=== PATIENT | male | born 1970 | race Caucasian/White ===

== ENCOUNTER 2016-10-13 18:58 | Emergency (ER) | payer OTHER ==
[~2016-10-13] VITALS: Ht 185.4 cm; Wt 118.8 kg
[~2016-10-13 18:58] MED LIST: ALBUAER2 INH; AMB5 PO; CLB200 PO; CLC100 PO; DLCS PR; EPP3/2 IM; LVNIS40 SQ; MLXESC PO; MULT-589 PO; OXYSR10 PO; PRT40 PO; RXC5 PO; SNK PO
[2016-10-13 19:05] VITALS: Ht 185.4 cm; Wt 118.8 kg
[2016-10-13 20:22] VITALS: TEMP 37
[2016-10-13] MEDS ORDERED: SODIUM CHLORIDE 0.9% 1000ML 1,000 ML IV STA (20:27)
[2016-10-13] MEDS ORDERED: METOCLOPRAMIDE HCL INJ 5 MG/ML 2 ML VIAL IV STA (20:27)
[2016-10-13] MEDS ORDERED: HYDROmorphone INJ 1 MG/ML SYR IV STA ×2 (20:27→23:24)
[2016-10-13] MEDS ORDERED: KETOROLAC TROMETHAMINE 30 MG/ML VIAL IV STA (20:27)
[2016-10-13 20:43] LABS: BASO % 0.2 %; BASO ABS # 0.04 K/uL (0-0.2); COMPLETE YES; EOS % 1.8 %; HEMATOCRIT 45.6 % (42-52); IG% 0.3 %; LYMPH ABS # 4.03 K/uL (1.2-3.4); MEAN CELL VOLUME 79.7 fL (80-100); MEAN CORPUSCULAR HEMOGLOBIN 27.3 pg (25-34); MEAN CORPUSCULAR HGB CONC 34.2 g/dl (32-36); MEAN PLATELET VOLUME 9.7 fL (7.4-10.4); MONO % 7.9 %; NEUT % 64.8 %; PLATELET COUNT 271 K/uL (130-400); RED BLOOD COUNT 5.72 M/uL (4.7-6.1); WHITE BLOOD COUNT 16.13 K/uL (4.8-10.8)
[2016-10-13] MEDS ORDERED: OXYC-609 PO (21:01)
[2016-10-13] MEDS ORDERED: FAMO20TA11 PO (21:01)
[2016-10-13] MEDS ORDERED: IBUP-1050 PO (21:03)
[2016-10-13] MEDS ORDERED: CYCL5TAB PO (21:03)
[2016-10-13] MEDS ORDERED: DICY10CA12 PO (21:03)
[2016-10-13 21:09] LABS: ALKALINE PHOSPHATASE 86 U/L (45-117); ALT/SGPT 44 U/L (12-78); BLOOD UREA NITROGEN 17 mg/dl (7-18); BUN/CREATININE RATIO 15.8 (10-20); CALCIUM 8.8 mg/dl (8.5-10.1); CARBON DIOXIDE 27 mmol/L (21-32); CHLORIDE 105 mmol/L (98-107); GLUCOSE 97 mg/dl (70-99)
[2016-10-13 21:19] LABS: POTASSIUM 4.3 mmol/L (3.5-5.1); SODIUM 142 mmol/L (136-145)
[2016-10-13 21:24] LABS: AST/SGOT 22 U/L (15-37)
--- NOTE | 2016-10-13 21:35 | EMERGENCY ROOM VISIT NOTE ---
History Report prepared by Shi: Venita Iverson Under the Supervision of: Dr. Tai Umana M.D. First contact with patient: 20:18 Chief Complaint: ABDOMINAL PAIN Stated Complaint: ABDOMINAL PAIN Nursing Triage Summary: pt c/o bad abd pain since 0200 this morning with nausea. History of Present Illness The patient is a 45 year old male who presents to the Emergency Room with complaints of constant lower abdominal pain beginning this morning. The patient complains of lower back pain and notes that his symptoms are worsened with pressure and movement. He denies any diarrhea, blood in the stool, and blood in the urine. He notes that he was concerned about appendicitis and [facility] The patient has never had any abdominal surgeries and rates his pain as a 6/10 in severity. He notes that he takes Vicodin in the morning at home and it did not relieve his pain. Source of History: patient Onset: this morning Position: abdomen Symptom Intensity: 6/10 Timing: constant Modifying Factors (Worsening): movement, other (pressure) Associated Symptoms: + back pain, No diarrhea Note: Pt denies blood in the stool. Review of Systems See HPI for pertinent positives & negatives. A total of 10 systems reviewed and were otherwise negative. Past Medical & Surgical Medical Problems: (1) Anxiety (2) Asthma (3) Depression (4) Djd Bilateral Knees (5) Knee pain Family History FH: heart disease Hypertension Social History Smoking Status: Current Every Day Smoker Alcohol Use: none, other Marital Status: single Occupation Status: employed Current/Historical Medications Scheduled Amoxicillin & Pot Clavulanate (Augmentin 875-125 mg), 1 TAB PO BID Docusate Sodium (Colace), 1 CAP PO BID Famotidine (Pepcid), 20 MG PO QAM Ibuprofen (Advil), 200-600 MG PO Q4H Oxycodone HCl (Oxycodone HCl), 5 MG PO BID Sennosides (Senokot), 8.6 MG PO HS Scheduled PRN Albuterol (Ventolin), 2 PUFFS INH QID PRN for Asthma Symptoms Cyclobenzaprine Hcl (Flexeril), 5 MG PO TID PRN for PRN Dicyclomine Hcl (Dicyclomine Hcl), 1 MG PO DAILY PRN for PRN Epinephrine (Epipen), 0.3 MG IM UD PRN for ALLERGIC REACTION Oxycodone/Acetaminophen 5MG/325MG (Percocet 5MG/325MG), 1-2 TAB PO Q4H PRN for Pain Allergies Coded Allergies: Bee Venom (Verified Allergy, Severe, ANAPHYLAXIS, 10/13/16) Reported by PT Physical Exam Vital Signs Date Time Temp Pulse Resp B/P Pulse Ox O2 Delivery O2 Flow Rate FiO2 10/14/16 00:05 80 18 134/78 98 10/13/16 22:11 89 18 118/70 94 Room Air 10/13/16 21:10 95 10/13/16 20:22 37.0 100 20 152/103 95 Room Air 10/13/16 19:05 37.0 114 18 142/88 96 Room Air Physical Exam GENERAL: Patient is a healthy-appearing well-nourished HEAD: Normocephalic atraumatic EYES: Ocular movements intact pupils equal and react to light OROPHARYNX mucous membranes are moist no exudates present no erythema or edema present NECK: Supple no nuchal rigidity CHEST: Good equal expansion LUNGS: Clear and equal to auscultation CARDIAC: Normal S1 and S2 ABDOMEN: Soft, tender in LLQ, no guarding BACK: No CVA tenderness EXTREMITIES: No pain upon palpation normal muscle strength in all groups no clubbing cyanosis or edema NEURO: Patient is following commands is answering questions appropriately. Alert and oriented x3 Cranial Nerves 2-12 grossly intact Medical Decision & Procedures ER Provider Diagnostic Interpretation: CT results as stated below per my review and radiologist interpretation: CT ABD/PELVIS IV AND ORAL CONT FINDINGS: Lower chest: There are bibasal atelectatic changes. Liver: There is moderately severe hepatic steatosis. No focal masses are visualized. Gallbladder: Unremarkable. Spleen: Normal in size and attenuation. Pancreas: Unremarkable. Adrenal glands: Unremarkable. Kidneys: There is symmetric renal cortical enhancement. The kidneys are normal in size without hydronephrosis. Bowel: There are no transition zones indicate bowel obstruction. The appendix appears normal. There is sausagelike thickening of the sigmoid colon. There is infiltration of the perisigmoid fat. The findings are indicative of acute diverticulitis. There is no drainable abscess. Peritoneum: There is no intraperitoneal free air or abdominal ascites. Vasculature: The abdominal aorta is normal in course and caliber. Adenopathy: None. Pelvic viscera: The bladder, and pelvic viscera are unremarkable. Skeletal structures: No destructive osseous lesions are seen. IMPRESSION: 1. Acute sigmoid diverticulitis. 2. No evidence of bowel obstruction. No evidence of free air 3. Normal appendix 4. Hepatic steatosis. Electronically signed by: Hugh Avila M.D. 10/13/2016 11:12 PM Dictated Date/Time: 10/13/2016 11:08 PM Laboratory Results 10/13/16 20:30 Red Blood Count 5.72, Mean Corpuscular Volume 79.7, Mean Corpuscular Hemoglobin 27.3, Mean Corpuscular Hemoglobin Concent 34.2, Mean Platelet Volume 9.7, Neutrophils (%) (Auto) 64.8, Lymphocytes (%) (Auto) 25.0, Monocytes (%) (Auto) 7.9, Eosinophils (%) (Auto) 1.8, Basophils (%) (Auto) 0.2, Neutrophils # (Auto) 10.44, Lymphocytes # (Auto) 4.03, Monocytes # (Auto) 1.28, Eosinophils # (Auto) 0.29, Basophils # (Auto) 0.04 10/13/16 20:30 Test 10/13/16 20:30 White Blood Count 16.13 K/uL (4.8-10.8) Red Blood Count 5.72 M/uL (4.7-6.1) Hemoglobin 15.6 g/dL (14.0-18.0) Hematocrit 45.6 % (42-52) Mean Corpuscular Volume 79.7 fL (80-100) Mean Corpuscular Hemoglobin 27.3 pg (25-34) Mean Corpuscular Hemoglobin Concent 34.2 g/dl (32-36) Platelet Count 271 K/uL (130-400) Mean Platelet Volume 9.7 fL (7.4-10.4) Neutrophils (%) (Auto) 64.8 % Lymphocytes (%) (Auto) 25.0 % Monocytes (%) (Auto) 7.9 % Eosinophils (%) (Auto) 1.8 % Basophils (%) (Auto) 0.2 % Neutrophils # (Auto) 10.44 K/uL (1.4-6.5) Lymphocytes # (Auto) 4.03 K/uL (1.2-3.4) Monocytes # (Auto) 1.28 K/uL (0.11-0.59) Eosinophils # (Auto) 0.29 K/uL (0-0.5) Basophils # (Auto) 0.04 K/uL (0-0.2) RDW Standard Deviation 44.5 fL (36.4-46.3) RDW Coefficient of Variation 15.3 % (11.5-14.5) Immature Granulocyte % (Auto) 0.3 % Immature Granulocyte # (Auto) 0.05 K/uL (0.00-0.02) Anion Gap 10.0 mmol/L (3-11) Est Creatinine Clear Calc Drug Dose 114.5 ml/min Estimated GFR () 93.5 Estimated GFR (Non- 80.6 BUN/Creatinine Ratio 15.8 (10-20) Calcium Level 8.8 mg/dl (8.5-10.1) Total Bilirubin 0.6 mg/dl (0.2-1) Direct Bilirubin < 0.1 mg/dl (0-0.2) Aspartate Amino Transf (AST/SGOT) 22 U/L (15-37) Alanine Aminotransferase (ALT/SGPT) 44 U/L (12-78) Alkaline Phosphatase 86 U/L (45-117) Total Protein 7.8 gm/dl (6.4-8.2) Albumin 3.9 gm/dl (3.4-5.0) Lipase 76 U/L (73-393) Labs reviewed by ED physician. Medications Administered Medications (Trade) Dose Ordered Sig/Yang Route Start Time Stop Time Status Last Admin Dose Admin Sodium Chloride (Nss 1000ml) 1,000 ml @ 999 mls/hr Q1H1M STAT IV 10/13/16 20:27 10/13/16 21:27 DC 10/13/16 20:39 999 MLS/HR Metoclopramide HCl (Reglan Inj) 10 mg NOW STAT IV 10/13/16 20:27 10/13/16 20:29 DC 10/13/16 20:39 10 MG Hydromorphone HCl (Dilaudid Inj) 1 mg NOW STAT IV 10/13/16 20:27 10/13/16 20:29 DC 10/13/16 20:40 1 MG Ketorolac Tromethamine (Toradol Inj) 30 mg NOW STAT IV 10/13/16 20:27 10/13/16 20:29 DC 10/13/16 20:39 30 MG Amoxicillin/ Clavulanate Potassium (Augmentin Tab) 875 mg ONE ONCE PO 10/13/16 23:30 10/13/16 23:31 DC 10/13/16 23:52 875 MG Amoxicillin/ Clavulanate Potassium (Augmentin Tab) 875 mg BID ONCE PO 10/14/16 09:00 10/14/16 09:00 DC 10/13/16 23:59 875 MG Hydromorphone HCl (Dilaudid Inj) 1 mg NOW STAT IV 10/13/16 23:24 10/13/16 23:25 DC 10/13/16 23:53 1 MG Ondansetron HCl (Zofran Inj) 4 mg NOW STAT IV 10/13/16 23:24 10/13/16 23:25 DC 10/13/16 23:52 4 MG Oxycodone/ Acetaminophen (Percocet 5/ 325MG Home Pack) 1 homepack UD ONCE PO 10/13/16 23:30 10/13/16 23:31 DC 10/13/16 23:53 1 HOMEPACK ED Course 2018: Past medical records reviewed. The patient was evaluated in room C8. A complete history and physical examination was performed. 2026: Toradol Inj 30mg IV, Dilaudid Inj 1mg IV, Reglan Inj 10mg IV, Sodium Chloride 1000 ml @ 999 mls/hr IV. 2324: Zofran Inj 4mg IV, Dilaudid Inj 1mg IV. 2330: Oxycodone/Acetaminophen 1 homepack PO, Augmentin Tab 875mg PO. 2335: Upon reexamination the patient is hemodynamically stable. I discussed results and treatment plan with the patient. He verbalizes agreement and understanding. The patient is ready for discharge. 0900: Augmentin Tab 875mg PO. Medical Decision Differential diagnosis: Etiologies such as appendicitis, diverticulitis, PUD, biliary pathology, UTI, pancreatitis, obstruction, mesenteric ischemia, aortic pathology, infections, inflammatory bowel disease, renal colic, as well as others were entertained. This is a 45-year-old male who presents emergency department complaining of left lower quadrant abdominal pain. Patient does have an elevation in his white blood count 16. The patient was sent for CAT scan of the abdomen and pelvis. Serial abdominal examinations were performed on the patient in the emergency department and no tended patient exhibit a surgical abdomen. The patient does have diverticulitis on CAT scan has no evidence of an abscess. For this reason he started on Augmentin. I recommended a clear liquid diet for the next 48 hours and return pain was out of control or the patient began vomiting. Patient was in agreement with treatment plan. He is going to follow- up with gastroenterology. Impression Primary Impression: Abdominal pain Additional Impression: Diverticulitis Scribe Attestation The scribe's documentation has been prepared under my direction and personally reviewed by me in its entirety. I confirm that the note above accurately reflects all work, treatment, procedures, and medical decision making performed by me. Departure Information Dispostion Home / Self-Care Prescriptions Docusate Sodium (COLACE) 100 Mg Cap 1 CAP PO BID for 10 Days, #20 CAP Prov: Tai Umana MD 10/13/16 Sennosides (SENOKOT) 8.6 Mg Tab 8.6 MG PO HS, #10 TAB Prov: Tai Umana MD 10/13/16 Oxycodone/Acetaminophen 5MG/325MG (PERCOCET 5MG/325MG) Tab 1-2 TAB PO Q4H Y for Pain, #14 TAB Prov: Tai Umana MD 10/13/16 Amoxicillin & Pot Clavulanate (Augmentin 875-125 mg) 1 Tab Tab 1 TAB PO BID, #14 TAB Prov: Tai Umana MD 10/13/16 Referrals Joe Metzger M.D. (PCP) Forms Call Back Authorization, HOME CARE DOCUMENTATION FORM, IMPORTANT VISIT INFORMATION Patient Instructions Diverticulosis Diverticulitis, ED Diet Clear Liquid, My [facility] Additional Instructions CLear liquid diet next 48 hours Follow up with DR Miramontes's office Return if you develop severe abd pain and or fevers You received narcotic or benzodiazepene medication while in the emergency room today. Do not drive, operate heavy machinery, or drink alcohol under the influence of this medication. Take 600 mg Ibuprofen every 6 hours Take Percocet for breakthrough pain You have been examined and treated today on an emergency basis only. This is not a substitute for, or an effort to provide, complete comprehensive medical care. It is impossible to recognize and treat all injuries or illnesses in a single emergency department visit. It is therefore important that you follow up closely with Dr Metzger. Call as soon as possible for an appointment. Thank you for your time and consideration. I look forward to speaking with you again soon. Please don't hesitate to call us if you have any questions. Problem Qualifiers Primary Impression: Abdominal pain Abdominal location: left lower quadrant Qualified Codes: R10.32 - Left lower quadrant pain Additional Impression: Diverticulitis Diverticulitis site: large intestine Diverticulitis bleeding: without bleeding Diverticulitis complication: without perforation or abscess Qualified Codes: K57.32 - Diverticulitis of large intestine without perforation or abscess without bleeding
[2016-10-13] MEDS ORDERED: OPTIRAY 320 IV PRN (23:00)
--- NOTE | 2016-10-13 23:13 | DIAGNOSTIC IMAGING REPORT ---
CT ABD/PELVIS IV AND ORAL CONT CLINICAL HISTORY: Left lower quadrant abdominal pain COMPARISON STUDY: 10/03/2014 TECHNIQUE: Following the IV administration of 93 mL of Optiray-320, CT scan of the abdomen and pelvis was performed from the lung bases to the proximal femurs. Images are reviewed in the axial, sagittal, and coronal planes. IV contrast was administered without complication. CT DOSE: 1144.91 mGy.cm FINDINGS: Lower chest: There are bibasal atelectatic changes. Liver: There is moderately severe hepatic steatosis. No focal masses are visualized. Gallbladder: Unremarkable. Spleen: Normal in size and attenuation. Pancreas: Unremarkable. Adrenal glands: Unremarkable. Kidneys: There is symmetric renal cortical enhancement. The kidneys are normal in size without hydronephrosis. Bowel: There are no transition zones indicate bowel obstruction. The appendix appears normal. There is sausagelike thickening of the sigmoid colon. There is infiltration of the perisigmoid fat. The findings are indicative of acute diverticulitis. There is no drainable abscess. Peritoneum: There is no intraperitoneal free air or abdominal ascites. Vasculature: The abdominal aorta is normal in course and caliber. Adenopathy: None. Pelvic viscera: The bladder, and pelvic viscera are unremarkable. Skeletal structures: No destructive osseous lesions are seen. IMPRESSION: 1. Acute sigmoid diverticulitis. 2. No evidence of bowel obstruction. No evidence of free air 3. Normal appendix 4. Hepatic steatosis. Electronically signed by: Hugh Avila M.D. 10/13/2016 11:12 PM Dictated Date/Time: 10/13/2016 11:08 PM
[2016-10-13] MEDS ORDERED: ONDANSETRON INJ 2 MG/ML 2 ML VIAL IV STA (23:24)
[2016-10-13] MEDS ORDERED: AMOX875T PO (23:28)
[2016-10-13] MEDS ORDERED: OXYC-57 PO (23:28)
[2016-10-13] MEDS ORDERED: PERCOCET HOME PACK PO ONE (23:30)
[2016-10-13] MEDS ORDERED: AMOXICILLIN/CLAVULANATE TAB 875 MG TAB PO ONE (23:30)
[2016-10-13] MEDS ORDERED: SENN1TAB77 PO (23:32)
[2016-10-13] MEDS ORDERED: DOCU-94 PO (23:32)
[2016-10-14] MEDS ORDERED: AMOXICILLIN/CLAVULANATE TAB 875 MG TAB PO ONE ×2 (00:04→09:00)
[2016-10-14 00:05] VITALS: BP 134/78; PULSE 80; O2SAT 98
== END 2016-10-14 00:07 | disposition home or self-care (01) ==
LOC: C.EDB 19:00 → C.EDC 10-14 00:07
DX: K57.32 Diverticulitis of large intestine without perforation or abscess without bleeding (principal); F41.9 Anxiety disorder, unspecified; F32.9 Major depressive disorder, single episode, unspecified; J45.909 Unspecified asthma, uncomplicated; M17.0 Bilateral primary osteoarthritis of knee; F17.200 Nicotine dependence, unspecified, uncomplicated; Z79.899 Other long term (current) drug therapy; Z91.030 Bee allergy status; Z82.49 Family history of ischemic heart disease and other diseases of the circulatory system

== ENCOUNTER 2017-08-10 08:24 | Inpatient (IN) | payer OTHER ==
[~2017-08-10] VITALS: Ht 185.4 cm; Wt 112.1 kg
[~2017-08-10 08:24] MED LIST changes: -AMB5 PO; -CLB200 PO; -CLC100 PO; +CYCL5TAB PO; +DICY10CA12 PO; -DLCS PR; +FAMO20TA11 PO; +IBUP-1050 PO; -LVNIS40 SQ; -MLXESC PO; -MULT-589 PO; +OXYC-57 PO; +OXYC-609 PO; -OXYSR10 PO; -PRT40 PO; -RXC5 PO; -SNK PO
[2017-08-10] MEDS ORDERED: KETOROLAC TROMETHAMINE 30 MG/ML VIAL IV STA (09:16)
[2017-08-10] MEDS ORDERED: ALBUT/IPRATROP 3MG/0.5MG NEB 3 ML VIAL INH STA (09:16)
[2017-08-10] MEDS ORDERED: MoRPHine SULFATE 4 MG/ML 1 ML CARP\\VIAL IV STA (09:16)
[2017-08-10] MEDS ORDERED: ONDANSETRON INJ 2 MG/ML 2 ML VIAL IV STA (09:16)
--- NOTE | 2017-08-10 09:38 | DIAGNOSTIC IMAGING REPORT ---
CHEST ONE VIEW PORTABLE CLINICAL HISTORY: Shortness of breath. COMPARISON STUDY: Chest radiograph July 05, 2015. FINDINGS: Lung volumes are normal. Lungs are clear. No pneumothorax or pleural effusion is noted. Pulmonary vascularity is normal. Cardiomediastinal silhouette is unremarkable. The appearance of the chest is unchanged. IMPRESSION: No acute cardiopulmonary findings. Electronically signed by: Ochoa Mir M.D. 08/10/2017 9:36 AM Dictated Date/Time: 08/10/2017 9:36 AM
[2017-08-10] MEDS ORDERED: VNTHFA/IN INH (09:53)
[2017-08-10] MEDS ORDERED: DOXY100C76 PO (09:53)
[2017-08-10] MEDS ORDERED: FLUT0.15 NAE (09:53)
[2017-08-10] MEDS ORDERED: PRED-301 PO (09:53)
[2017-08-10 09:54] LABS: BASO % 0.2 %; BASO ABS # 0.03 K/uL (0-0.2); EOS ABS # 0.13 K/uL (0-0.5); HEMOGLOBIN 17.8 g/dL (14.0-18.0); IG# 0.02 K/uL (0.00-0.02); LYMPH % 27.6 %; LYMPH ABS # 3.52 K/uL (1.2-3.4); MEAN CELL VOLUME 78.9 fL (80-100); MEAN CORPUSCULAR HEMOGLOBIN 28.7 pg (25-34); MEAN CORPUSCULAR HGB CONC 36.3 g/dl (32-36); MEAN PLATELET VOLUME 11.5 fL (7.4-10.4); MONO % 7.8 %; MONO ABS # 0.99 K/uL (0.11-0.59); NEUT % 63.2 %; NEUT ABS # 8.07 K/uL (1.4-6.5); PLATELET COUNT 336 K/uL (130-400); RED CELL DISTRIBUTION WIDTH CV 13.9 % (11.5-14.5); RED CELL DISTRIBUTION WIDTH SD 39.2 fL (36.4-46.3); WHITE BLOOD COUNT 12.76 K/uL (4.8-10.8)
[2017-08-10 10:03] LABS: INR 0.9 (0.9-1.1); PTT PATIENT 22.9 SECONDS (21.0-31.0)
[2017-08-10 10:30] LABS: ALBUMIN 4.3 gm/dl (3.4-5.0); ALKALINE PHOSPHATASE 133 U/L (45-117); AST/SGOT 17 U/L (15-37); BLOOD UREA NITROGEN 24 mg/dl (7-18); CALCIUM 10.1 mg/dl (8.5-10.1); CARBON DIOXIDE 28 mmol/L (21-32); CKMB 1.1 ng/ml (0.5-3.6); CREATININE 1.26 mg/dl (0.60-1.40); POTASSIUM 4.6 mmol/L (3.5-5.1); SODIUM 122 mmol/L (136-145); TOTAL PROTEIN 8.3 gm/dl (6.4-8.2)
[2017-08-10 10:39] LABS: GLUCOSE 694 mg/dl (70-99)
[2017-08-10 11:09] LABS: ALT/SGPT 39 U/L (12-78)
--- NOTE | 2017-08-10 11:19 | EMERGENCY ROOM VISIT NOTE ---
History Report prepared by Shi: Gagandeep Mcguire Under the Supervision of: Dr. Tai Balbuena D.O. First contact with patient: 09:08 Chief Complaint: RESPIRATORY PROBLEMS Stated Complaint: CANT BREATH, MUSCLE CRAMPS, DIZZINESS Nursing Triage Summary: pt to the ED with c/o walking penumonia on sunday and still feels worse still coughing and is taking ABX and prednisone and flonase History of Present Illness The patient is a 46 year old male who presents to the Emergency Room with complaints of persistent respiratory symptoms that began three weeks ago. He has a past medical history of asthma, DJD, and bilateral knee replacements. Over this time, the patient has developed a multitude of symptoms associated with his shortness of breath. He has been experiencing a fever, productive cough , rhinorrhea, sinus congestion, diffuse muscle cramps, blurry vision, lightheadedness, dizziness, and increased thirst. Three days ago, he was placed onto Flonase, Prednisone, and Doxycycline. His fever had broken soon after that. However, last night it returned and he began to feel significantly more weak. He has been drinking a large amount of fluids to try to stay hydrated. He notes that he is mildly nauseated but denies any vomiting. He states that he has not had a bowel movement recently, but he has not been eating regularly. Source of History: patient Onset: 3 weeks ago Position: other (Respiratory System) Symptom Intensity: moderate Quality: other (Shortness of breath) Timing: other (Persistent) Associated Symptoms: + fevers, + cough, + nausea, + weakness, No vomiting Note: He has been experiencing rhinorrhea, sinus congestion, diffuse muscle cramping, blurry vision, lightheadedness, and dizziness. Review of Systems See HPI for pertinent positives & negatives. A total of 10 systems reviewed and were otherwise negative. Past Medical & Surgical Medical Problems: (1) Anxiety (2) Asthma (3) Depression (4) Djd Bilateral Knees (5) Knee pain Family History FH: heart disease Hypertension Social History Smoking Status: Current Every Day Smoker Alcohol Use: none, other Marital Status: single Occupation Status: employed Current/Historical Medications Scheduled Doxycycline Monohydrate (Monodox), 100 MG PO BID Prednisone (Prednisone), 0 PO UD Scheduled PRN Albuterol Hfa (Ventolin Hfa), 2-4 PUFFS INH Q6H PRN for SOB/Wheezing Epinephrine (Epipen), 0.3 MG IM UD PRN for ALLERGIC REACTION Oxycodone/Acetaminophen 5MG/325MG (Percocet 5MG/325MG), 1-2 TAB PO Q4H PRN for Pain Miscellaneous Medications Fluticasone Propionate (Nasal) (Flonase Allergy Relief) Allergies Coded Allergies: Bee Venom (Verified Allergy, Severe, ANAPHYLAXIS, 08/10/17) Reported by PT Physical Exam Vital Signs Date Time Temp Pulse Resp B/P (MAP) Pulse Ox O2 Delivery O2 Flow Rate FiO2 08/10/17 10:40 88 20 135/90 87 Room Air 08/10/17 09:34 84 08/10/17 08:26 36.4 110 20 136/85 97 Room Air Physical Exam CONSTITUTIONAL/VITAL SIGNS: Reviewed / noted above. GENERAL: Non-toxic in appearance. INTEGUMENTARY: Warm, dry, and [place]. HEAD: Normocephalic. EYES: without scleral icterus or trauma. ENT/OROPHARYNX: clear and moist. LYMPHADENOPATHY/NECK: Is supple without lymphadenopathy or meningismus. RESPIRATORY: Lungs clear and equal. CARDIOVASCULAR: Regular rate and rhythm. GI/ABDOMEN: Soft and nontender. No organomegaly or pulsatile mass. No rebound or guarding. Normal bowel sounds. EXTREMITIES: Warm and well perfused. BACK: No CVA tenderness. NEUROLOGICAL: Intact without focal deficits. PSYCHIATRIC: normal affect. MUSCULOSKELETAL: Normally developed with good muscle tone. Medical Decision & Procedures ER Provider Diagnostic Interpretation: Radiology results as stated below per my review and radiologist interpretation: CHEST ONE VIEW PORTABLE CLINICAL HISTORY: Shortness of breath. COMPARISON STUDY: Chest radiograph July 05, 2015. FINDINGS: Lung volumes are normal. Lungs are clear. No pneumothorax or pleural effusion is noted. Pulmonary vascularity is normal. Cardiomediastinal silhouette is unremarkable. The appearance of the chest is unchanged. IMPRESSION: No acute cardiopulmonary findings. Electronically signed by: Ochoa Mir M.D. 08/10/2017 9:36 AM Dictated Date/Time: 08/10/2017 9:36 AM Laboratory Results 08/10/17 09:37 Red Blood Count 6.21, Mean Corpuscular Volume 78.9, Mean Corpuscular Hemoglobin 28.7, Mean Corpuscular Hemoglobin Concent 36.3, Mean Platelet Volume 11.5, Neutrophils (%) (Auto) 63.2, Lymphocytes (%) (Auto) 27.6, Monocytes (%) (Auto) 7.8, Eosinophils (%) (Auto) 1.0, Basophils (%) (Auto) 0.2, Neutrophils # (Auto) 8.07, Lymphocytes # (Auto) 3.52, Monocytes # (Auto) 0.99, Eosinophils # (Auto) 0.13, Basophils # (Auto) 0.03 08/10/17 09:37 Test 08/10/17 09:37 08/10/17 11:27 08/10/17 11:45 08/10/17 11:48 White Blood Count 12.76 K/uL (4.8-10.8) Red Blood Count 6.21 M/uL (4.7-6.1) Hemoglobin 17.8 g/dL (14.0-18.0) Hematocrit 49.0 % (42-52) Mean Corpuscular Volume 78.9 fL (80-100) Mean Corpuscular Hemoglobin 28.7 pg (25-34) Mean Corpuscular Hemoglobin Concent 36.3 g/dl (32-36) Platelet Count 336 K/uL (130-400) Mean Platelet Volume 11.5 fL (7.4-10.4) Neutrophils (%) (Auto) 63.2 % Lymphocytes (%) (Auto) 27.6 % Monocytes (%) (Auto) 7.8 % Eosinophils (%) (Auto) 1.0 % Basophils (%) (Auto) 0.2 % Neutrophils # (Auto) 8.07 K/uL (1.4-6.5) Lymphocytes # (Auto) 3.52 K/uL (1.2-3.4) Monocytes # (Auto) 0.99 K/uL (0.11-0.59) Eosinophils # (Auto) 0.13 K/uL (0-0.5) Basophils # (Auto) 0.03 K/uL (0-0.2) RDW Standard Deviation 39.2 fL (36.4-46.3) RDW Coefficient of Variation 13.9 % (11.5-14.5) Immature Granulocyte % (Auto) 0.2 % Immature Granulocyte # (Auto) 0.02 K/uL (0.00-0.02) Prothrombin Time 9.7 SECONDS (9.0-12.0) Prothromb Time International Ratio 0.9 (0.9-1.1) Activated Partial Thromboplast Time 22.9 SECONDS (21.0-31.0) Partial Thromboplastin Ratio 0.9 Anion Gap 10.0 mmol/L (3-11) Est Creatinine Clear Calc Drug Dose 93.6 ml/min Estimated GFR () 78.8 Estimated GFR (Non- 68.0 BUN/Creatinine Ratio 19.2 (10-20) Calcium Level 10.1 mg/dl (8.5-10.1) Total Bilirubin 0.6 mg/dl (0.2-1) Aspartate Amino Transf (AST/SGOT) 17 U/L (15-37) Alanine Aminotransferase (ALT/SGPT) 39 U/L (12-78) Alkaline Phosphatase 133 U/L (45-117) Total Creatine Kinase 109 U/L (39-308) Creatine Kinase MB 1.1 ng/ml (0.5-3.6) Creatine Kinase MB Ratio 1.0 (0-3.0) Troponin I < 0.015 ng/ml (0-0.045) Total Protein 8.3 gm/dl (6.4-8.2) Albumin 4.3 gm/dl (3.4-5.0) Globulin 4.0 gm/dl (2.5-4.0) Albumin/Globulin Ratio 1.1 (0.9-2) Beta-Hydroxybutyric Acid 13.80 mg/dL (0.2-2.81) Laboratory results as stated above per my review. Medications Administered Medications (Trade) Dose Ordered Sig/Yang Route Start Time Stop Time Status Last Admin Dose Admin Albuterol/ Ipratropium (Duoneb) 3 ml NOW STAT INH 08/10/17 09:16 08/10/17 09:18 DC 08/10/17 09:40 3 ML Ketorolac Tromethamine (Toradol Inj) 30 mg NOW STAT IV 08/10/17 09:16 08/10/17 09:18 DC 08/10/17 09:41 30 MG Morphine Sulfate (MoRPHine SULFATE INJ) 4 mg NOW STAT IV 08/10/17 09:16 08/10/17 09:18 DC 08/10/17 09:41 4 MG Ondansetron HCl (Zofran Inj) 4 mg NOW STAT IV 08/10/17 09:16 08/10/17 09:18 DC 08/10/17 09:40 4 MG ECG Indication: SOB/dyspnea Rate (beats per minute): 85 Rhythm: normal sinus Findings: no acute ischemic change, no ectopy Change: ECG interpreted by me ED Course 0908: Previous medical records were reviewed. The patient was evaluated in room B8. A complete history and physical examination was performed. 0916: Ordered Zofran Inj 4 mg IV, Morphine Sulfate 4 mg IV, Toradol Inj 30 mg IV , DuoNeb 3 ml INH 1112: On reevaluation, the patient is resting. I discussed the results and findings with him. He verbalized agreement of the treatment plan. [facility] The patient will be evaluated for further management and care. Medical Decision Differentials include: Acute coronary syndrome, myocardial infarction, CVA, TIA , anemia, infection, pneumonia, UTI, pyelonephritis, poor nutrition, dehydration , electrolyte disturbance, and hypoglycemia. This is a 46-year-old male who presents to the ED with a chief complaint of shortness of breath, dizziness, blurred vision, near syncope, muscle cramps, cough and congestion. The patient was feeling ill for the past several weeks. He saw his PCP 3 days ago and was started on prednisone, Flomax and doxycycline for an upper respiratory infection. His symptoms worsened. His evaluation here was relatively unremarkable with the exception of some mild scattered wheezes. Patient's blood work reveals a hyponatremic with a sodium of 122. This is most likely predominantly a pseudohyponatremia related to the hyperglycemia with glucose of 694. He does not have a history of diabetes. White blood cell count was 12.76. Other labs were unremarkable. Chest x-ray was negative for acute disease. The patient was treated with normal saline 1 L IV, Zofran IV, Toradol and morphine IV. He was given subcutaneous insulin. I spoke with the hospice, who will see the patient for further inpatient evaluation and care. Medication Reconcilliation Current Medication List: was personally reviewed by me Blood Pressure Screening Patient's blood pressure: Elevated blood pressure Referred to the hospitalist Consults Time Called: 1110 Consulting Physician: Gabbie Edwards PA-C - [facility] Returned Call: 1112 Discussed the patient's case. The patient will be evaluated for further treatment and disposition. Impression Primary Impression: Hyponatremia Additional Impressions: Hyperglycemia Dizziness Blurred vision Flu-like symptoms Scribe Attestation The scribe's documentation has been prepared under my direction and personally reviewed by me in its entirety. I confirm that the note above accurately reflects all work, treatment, procedures, and medical decision making performed by me. Departure Information Dispostion Being Evaluated By Hospitalist Referrals Joe Metzger M.D. (PCP) Patient Instructions My [facility] Problem Qualifiers
[2017-08-10] MEDS ORDERED: SODIUM CHLORIDE 0.9% 1000ML 1,000 ML IV SCH ×2 (11:45→13:00)
[2017-08-10] MEDS ORDERED: INSULIN IV INFUSION PROTOCOL STA ×2 (11:49→11:51)
[2017-08-10] MEDS ORDERED: INSULIN HUMAN REGULAR PER UNIT 10 UNITS in SYRINGE 0 ML IV STA (11:50)
[2017-08-10] MEDS ORDERED: SODIUM CHLORIDE 0.9% 1000ML 1,000 ML IV ONE (11:51)
[2017-08-10] MEDS ORDERED: DEXTROSE 50% 50 ML SYR IV PRN (12:00)
[2017-08-10] MEDS ORDERED: GLUCOSE 10 TABS/TUBE PO PRN (12:00)
[2017-08-10] MEDS ORDERED: SEVERE STRESS LEVEL ONE ×2 (12:00)
[2017-08-10] MEDS ORDERED: GLUCOSE 40% GEL 15 GM TUBE PO PRN (12:00)
[2017-08-10] MEDS ORDERED: INSULIN ASPART 100 UNITS/ML 3 ML PEN SC ONE (12:00)
[2017-08-10] MEDS ORDERED: NovoLIN-R INSULIN PER UNIT CHARGE IV ONE (12:00)
[2017-08-10] MEDS ORDERED: DKA GOAL RANGE 150-250 mg/dl 1 EA ONE ×2 (12:00)
[2017-08-10] MEDS ORDERED: GLUCAGON FOR INJ 1 MG VIAL SQ PRN (12:00)
[2017-08-10] MEDS ORDERED: PHARMACY GLYCEMIC MGMT CONSULT PRN (12:08)
[2017-08-10] MEDS ORDERED: INSULIN ASPART 100 UNITS/ML 3 ML PEN SC SCH (12:22)
[2017-08-10] MEDS ORDERED: LEVALBUTEROL/IPRATROPIUM NEB INH SCH (12:30)
[2017-08-10] MEDS ORDERED: HYDR-5688 PO (12:31)
[2017-08-10] MEDS ORDERED: CLR10 PO (12:31)
[2017-08-10] MEDS ORDERED: FLVHFA110 INH (12:31)
[2017-08-10] MEDS ORDERED: ASPI325T45 PO (12:31)
[2017-08-10] MEDS ORDERED: MTR/600 PO (12:31)
[2017-08-10 12:35] VITALS: BP 136/60; PULSE 80; TEMP 36; O2SAT 93; BMI 31.3
[2017-08-10] MEDS: INSULIN REGULAR 250 UNITS in SODIUM CHLORIDE 0.9% 250ML 250 ML IV SCH (12:39)
[2017-08-10] MEDS ORDERED: ALBUTEROL HFA 8 GM INHALER INH PRN (12:45)
[2017-08-10] MEDS ORDERED: MoRPHine SULFATE 2 MG/ML CARP IV PRN (12:45)
[2017-08-10] MEDS ORDERED: EPINEPHRINE ADULT AUTO-INJECT 0.3 MG SYR IM PRN (12:45)
[2017-08-10 12:49] VITALS: O2SAT 97
[2017-08-10] MEDS ORDERED: MAGNESIUM HYDROXIDE SUSP 30 ML UDC PO PRN (13:00)
[2017-08-10] MEDS ORDERED: PENDING NSS+20mEq KCL IVF SCH (13:00)
[2017-08-10] MEDS ORDERED: ALUMINUM/MAGNESIUM/SIMETH (MAALOX MAX) 30 ML UDC PO PRN (13:00)
[2017-08-10] MEDS ORDERED: POLYETHYLENE (MIRALAX) 17 GM PACK PO PRN (13:00)
[2017-08-10] MEDS ORDERED: ONDANSETRON INJ 2 MG/ML 2 ML VIAL IV PRN (13:00)
[2017-08-10] MEDS ORDERED: NITROGLYCERIN 0.4 MG SL PER TAB CHARGE SL PRN (13:00)
[2017-08-10] MEDS ORDERED: ACETAMINOPHEN 325 MG TAB PO PRN (13:00)
[2017-08-10] MEDS ORDERED: AZITHROMYCIN 250 MG TAB PO ONE (13:15)
[2017-08-10 13:42] LABS: CALCIUM 9.8 mg/dl (8.5-10.1); CREATININE 1.47 mg/dl (0.60-1.40); PHOSPHORUS 5.2 mg/dl (2.5-4.9)
[2017-08-10 13:49] LABS: HEMOGLOBIN A1C 11.9 % (4.5-5.6)
[2017-08-10] MEDS: NYSTATIN SUSP 500,000 U/5 ML UDC PO SCH ×3 (13:58→20:24)
[2017-08-10] MEDS ORDERED: CEFTRIAXONE SOD INJ 1 GM in DEXTROSE 5% ADD-VANTAGE 50ML 50 ML IV SCH (14:00)
--- NOTE | 2017-08-10 14:07 | Pharmacy Progress Note ---
Glycemic Control Intl Consult Date of Service Aug 10, 2017. Scope Glycemic Pharmacist consulted by Dr Mujica on 08/10/17 for glycemic control and to write orders per [facility] inpatient glycemic control protocol Objective Weight (Kilograms): 106.000 Accuchecks BSG (last 24hrs): Test 08/10/17 09:37 08/10/17 12:42 08/10/17 13:40 Random Glucose 694 mg/dl (70-99) 757 mg/dl (70-99) Bedside Glucose 593 mg/dl (70-99) Laboratory Data (last 24hrs) Test 08/10/17 09:37 08/10/17 12:42 08/10/17 13:47 Anion Gap 10.0 mmol/L 12.0 mmol/L BUN/Creatinine Ratio 19.2 17.2 Blood Urea Nitrogen 24 mg/dl 25 mg/dl Creatinine 1.26 mg/dl 1.47 mg/dl Potassium Level 4.6 mmol/L mmol/L Sodium Level 122 mmol/L 119 mmol/L White Blood Count 12.76 K/uL Red Blood Count 6.21 M/uL Hemoglobin 17.8 g/dL Hematocrit 49.0 % Mean Corpuscular Volume 78.9 fL Mean Corpuscular Hemoglobin 28.7 pg Mean Corpuscular Hemoglobin Concent 36.3 g/dl Platelet Count 336 K/uL Mean Platelet Volume 11.5 fL Neutrophils (%) (Auto) 63.2 % Lymphocytes (%) (Auto) 27.6 % Monocytes (%) (Auto) 7.8 % Eosinophils (%) (Auto) 1.0 % Basophils (%) (Auto) 0.2 % Neutrophils # (Auto) 8.07 K/uL Lymphocytes # (Auto) 3.52 K/uL Monocytes # (Auto) 0.99 K/uL Eosinophils # (Auto) 0.13 K/uL Basophils # (Auto) 0.03 K/uL Hemoglobin A1c 11.9 % HbA1c Test 08/10/17 12:42 Hemoglobin A1c 11.9 % (4.5-5.6) H Recent Pertinent Medications Outpatient Anti-diabetic Regimen: * none (no previous diagnosis) Risk Factors for Insulin Resistance: * Steroids: Prednisone taper as out-patient (started on 08/07; 50 mg x 2, 40 mg x 2) * Infection: ? (recent flu-like symptoms reported) Assessment & Plan ASSESSMENT: * 46 yr old male admitted with severe steroid induced hyperglycemia in the setting of suspected undiagnosed diabetes. Positive family history for DM. Patient complains of respiratory symptoms and was started on prednisone taper, doxycycline and flonase on 08/07. * Case discussed with admitting provider; IV insulin infusion and fluids initiated per protocol with goal to transition to SQ basal/bolus regimen when BSGs are at goal and stable. PLAN FOR INPATIENT GLYCEMIC CONTROL: * Starting IV insulin infusion per severe stress protocol * Goal Range 250 - 350 mg/dl * Novolog [facility] DISCHARGE PLANNING * Patient meets diagnosis for diabetes based on Alc of 11.9% (recent steroid may have contributed to this elevation, although likely not significant since patient was only on steroid for 4 days) * Per ADA 2017 Standards of Care, treatment with combination injectable therapy is recommended for A1c if 10% or greater. * Please note that the plan above was derived based on current level of insulin resistance and hospital stress. These recommendations are appropriate for inpatient admission only. Plan of care upon discharge will need to be reassessed to avoid potential outpatient hypo/hyperglycemia. Thank you.
--- NOTE | 2017-08-10 14:10 | Progress Note ---
Internal Med Progress Note Date of Service: Aug 10, 2017. Provider Documentation: SUBJECTIVE: [] OBJECTIVE: Vital Signs-as noted below Exam: General-[] Eyes-[] ENT-[] Neck-[] Lungs-[] Heart-[] Abdomen-[] Extremities-[] Neuro-[] Lab data as noted below. ASSESSMENT & PLAN: [] DVT PROPHYLAXIS [] DISPOSITION [] Vital Signs: Date Time Temp Pulse Resp B/P (MAP) Pulse Ox O2 Delivery O2 Flow Rate FiO2 08/10/17 14:23 91 14 91 Room Air 08/10/17 10:40 88 20 135/90 87 Room Air 08/10/17 09:34 84 08/10/17 08:26 36.4 110 20 136/85 97 Room Air Lab Results: Results Past 24 Hours Test 08/10/17 09:35 08/10/17 09:37 08/10/17 12:42 08/10/17 13:26 Range/Units Urine Color YELLOW Urine Appearance CLEAR CLEAR Urine pH 5.0 4.5-7.5 Urine Specific Larue 1.041 1.000-1.030 Urine Protein NEG NEG Urine Glucose (UA) 3+ NEG Urine Ketones TRACE NEG Urine Occult Blood NEG NEG Urine Nitrite NEG NEG Urine Bilirubin NEG NEG Urine Urobilinogen NEG NEG Urine Leukocyte Esterase NEG NEG Urine WBC (Auto) 0 0-5 /hpf Urine RBC (Auto) 0-4 0-4 /hpf Urine Hyaline Casts (Auto) 0 0-5 /lpf Urine Epithelial Cells (Auto) 0-5 0-5 /lpf Urine Bacteria (Auto) NEG NEG White Blood Count 12.76 4.8-10.8 K/uL Red Blood Count 6.21 4.7-6.1 M/uL Hemoglobin 17.8 14.0-18.0 g/dL Hematocrit 49.0 42-52 % Mean Corpuscular Volume 78.9 80-100 fL Mean Corpuscular Hemoglobin 28.7 25-34 pg Mean Corpuscular Hemoglobin Concent 36.3 32-36 g/dl Platelet Count 336 130-400 K/uL Mean Platelet Volume 11.5 7.4-10.4 fL Neutrophils (%) (Auto) 63.2 % Lymphocytes (%) (Auto) 27.6 % Monocytes (%) (Auto) 7.8 % Eosinophils (%) (Auto) 1.0 % Basophils (%) (Auto) 0.2 % Neutrophils # (Auto) 8.07 1.4-6.5 K/uL Lymphocytes # (Auto) 3.52 1.2-3.4 K/uL Monocytes # (Auto) 0.99 0.11-0.59 K/uL Eosinophils # (Auto) 0.13 0-0.5 K/uL Basophils # (Auto) 0.03 0-0.2 K/uL RDW Standard Deviation 39.2 36.4-46.3 fL RDW Coefficient of Variation 13.9 11.5-14.5 % Immature Granulocyte % (Auto) 0.2 % Immature Granulocyte # (Auto) 0.02 0.00-0.02 K/uL Prothrombin Time 9.7 9.0-12.0 SECONDS Prothromb Time International Ratio 0.9 0.9-1.1 Activated Partial Thromboplast Time 22.9 21.0-31.0 SECONDS Partial Thromboplastin Ratio 0.9 Sodium Level 122 119 136-145 mmol/L Potassium Level 4.6 3.5-5.1 mmol/L Chloride Level 84 82 98-107 mmol/L Carbon Dioxide Level 28 25 21-32 mmol/L Anion Gap 10.0 12.0 3-11 mmol/L Blood Urea Nitrogen 24 25 7-18 mg/dl Creatinine 1.26 1.47 0.60-1.40 mg/dl Est Creatinine Clear Calc Drug Dose 93.6 80.2 ml/min Estimated GFR () 78.8 65.4 Estimated GFR (Non- 68.0 56.4 BUN/Creatinine Ratio 19.2 17.2 10-20 Random Glucose 694 757 70-99 mg/dl Calcium Level 10.1 9.8 8.5-10.1 mg/dl Total Bilirubin 0.6 0.2-1 mg/dl Aspartate Amino Transf (AST/SGOT) 17 15-37 U/L Alanine Aminotransferase (ALT/SGPT) 39 12-78 U/L Alkaline Phosphatase 133 45-117 U/L Total Creatine Kinase 109 39-308 U/L Creatine Kinase MB 1.1 0.5-3.6 ng/ml Creatine Kinase MB Ratio 1.0 0-3.0 Troponin I < 0.015 0-0.045 ng/ml Total Protein 8.3 6.4-8.2 gm/dl Albumin 4.3 3.4-5.0 gm/dl Globulin 4.0 2.5-4.0 gm/dl Albumin/Globulin Ratio 1.1 0.9-2 Beta-Hydroxybutyric Acid 13.80 0.2-2.81 mg/dL Procalcitonin 0.05 0-0.5 ng/ml D-Dimer 310 0-500 ug/L FEU Venous Blood pH 7.38 7.36-7.41 Estimated Average Glucose 295 mg/dl Hemoglobin A1c 11.9 4.5-5.6 % Lactic Acid Level 0.4-2.0 mmol/L Phosphorus Level 5.2 2.5-4.9 mg/dl Magnesium Level 1.8-2.4 mg/dl Arterial Blood pH 7.39 7.35-7.45 Arterial Blood Partial Pressure CO2 45 35-46 mmHg Arterial Blood Partial Pressure O2 76 80-95 mm/Hg Arterial Blood HCO3 27 19-24 mmol/L Arterial Blood Oxygen Saturation 94.3 90-95 % Arterial Blood Base Excess 1.3 -9-1.8 mEq/L Arterial Blood Gas Delivery ROOM AIR Jared Test POS POS Test 08/10/17 13:40 08/10/17 14:00 08/10/17 14:06 Range/Units Bedside Glucose 593 70-99 mg/dl Microbiology Results 08/10/17 Blood Culture, Received Pending 08/10/17 Blood Culture, Received Pending
[2017-08-10] MEDS: HEPARIN SOD 5000 UNIT/0.5 ML CARP SQ SCH ×2 (14:19→22:00)
[2017-08-10] MEDS: IPRATROPIUM BROMIDE NEB SOLN 0.02% 2.5 ML VIAL INH SCH ×2 (14:22→19:54)
[2017-08-10] MEDS: LEVALBUTEROL 1.25MG/0.5ML NEB INH SCH ×2 (14:22→19:54)
[2017-08-10 14:23] VITALS: PULSE 91; O2SAT 91
[2017-08-10] MEDS ORDERED: PENDING D5 1/2NS+20mEq KCL IVF SCH (14:45)
[2017-08-10] MEDS ORDERED: PENDING 1/2NSS+20mEq KCL IVF SCH (14:45)
[2017-08-10 14:55] LABS: POTASSIUM 4.6 mmol/L (3.5-5.1)
[2017-08-10 15:00] VITALS: BP 125/79; PULSE 82; TEMP 36.6; O2SAT 90
[2017-08-10] MEDS: PENDING D5 1/2NS+20mEq KCL IVF SCH ×3 (15:00→19:00)
--- NOTE | 2017-08-10 15:00 | Progress Note ---
Progress Note Date of Service Aug 10, 2017. Progress Note ATTENDING ADDENDUM : pt seen and examined, care co ordinated with Gabbie CEJA lab and images reviewed 46 yo M with no known hx of Diabetes, has been having flu like symptom for past 3 weeks , had fever and chills, nasal congestion , headache , cough with productive sputum , generalized body ache he also noted increased thrust -says " Drinking like crazy " gallons of water , urinating a lot , had occasional blurred vision , increased weakness, fatigue Pt was seen at [facility] on 08/07/17 -was thought to have "Walking Pneumonia " ordered for Doxycycline , and Prednisone taper 10 mg tab - 5 tab for 2 day , 4 tab for 2 day , 3 tab for 2 day , 2 tab for 2 day and 1 tab for 2 day pt took his meds including the Prednisone , started to feel worse , had audible wheeze, pain in bilateral flank and rt sided subcostal area worse with minimum movement , developed SOB /PÉREZ came to ER for evaluation in ER -his BSG was > 600 , with normal Hco3, normal anion gap , Hypoxic 87 % in RA required 2 L supplemental 02, Cxray was negative for acute pathology VITALS : Last 8 Hrs Date Time Temp Pulse Resp B/P (MAP) Pulse Ox O2 Delivery O2 Flow Rate FiO2 08/10/17 14:23 91 14 91 Room Air 08/10/17 10:40 88 20 135/90 87 Room Air 08/10/17 09:34 84 08/10/17 08:26 36.4 110 20 136/85 97 Room Air P/E: GEN : no sign of distress , appears to be very tired , mentions feeling better than the morning HEENT : dry oral mucosa HT; regular LUNGS; + wheeze, no rales ABDOMEN: soft, + tenderness on rt subcostal area with radiation to back , minimum movement making it worse , 8/10 , Durham's sign -negative CVA tenderness on rt , bowel sound active EXT :no rash or deformity NEURO: AAO x3, no focal deficit A/p ; HYPERGLYCEMIA /DIABETES TYPE 2 UNDIAGNOSED : presents with BSG > 600 with symptom of increased thirst/ urination /blurred vision -occasionally , increased fatigue Family Hx of DM -Father hco3 25 /AG 10 possible Type 2 Dm ( undiagnosed ) presents with [facility] due to recent acute illness Hb A1c 11 .8 ordered IV insulin 10 U stat insulin IV gtt as per [facility]HS protocol cont aggressive IV hydration per protocol PRP /Mg /Phos /VBG ordered per protocol rule out underlying infection -blood cultures ordered administrative assistant receptionist consulted FLU LIKE SYMPTOM : had > 1 week of body ache /fever /malaise , headache /cough ordered for Influenza Ag droplet precaution IV hydration as above HYPOXIA /SOB : no infiltrate in Chest xray , had cough at home possible upper away infection /bronchitis was on PO Doxycycline as out pt ordered for IV Rocephin /PO Zithromax negative D Dimer Diffuse wheeze -possible underlying emphysema /COPD -hx of heavy smoking ( not diagnosed ) schedule neb tx , IV steroids avoided due to Hyperglycemia /uncontrolled DM TOBACCO ABUSE DISORDER : counselling provided refused to have nicotine patch FULL CODE Please refer to documentation of Gabbie ALARCON for further discussion of other issues CRISTIN FRANCISCO MD
[2017-08-10] MEDS ORDERED: SODIUM CHLOR 0.45% + 20MEQ KCL 1,000 ML IV SCH (15:15)
[2017-08-10 15:28] LABS: INFLUENZA B ANTIGEN Neg for Influ B (NEG)
--- NOTE | 2017-08-10 15:29 | History and Physical ---
History & Physical Date & Time of Service: Aug 10, 2017 at 12:44 Chief Complaint: Hypergylcemia, Hypoatremia Primary Care Physician: Joe Metzger M.D. History of Present Illness Source: patient, spouse, clinic records, hospital records Pt is 46 y/o M with PMH asthma, allergies presented to ER with c/o illness. Pt states has had productive yellow cough x 3 weeks with associated SOB and nasal congestion and sore throat. Also c/o dizziness, blurry vision intermittently with the dizziness x 3 weeks. Dizzy with standing and walking. Also c/o weakness past couple of weeks. Today felt lightheaded when he arrived to ER, no syncope. He was seen by PCP 08/07/17 and was started on doxycycline, prednisone, and flonase. Pt states past 2 days with diffuse body aches and worsening weakness. Using his Albuterol inhaler 2-3 times a day. Reports past 2 days with increased SOB and wheezing. Denies CP. Reports fever past 2 days, this am was 101.9F. Took ibuprofen and is afebrile upon ER arrival. Pt states a couple of weeks ago developed sore mouth, sore throat and tongue and developed white patches. He was using new inhaler ( Arnuity Ellipta). He stopped that and was given clotrimazole lozenges. Pt states white patches resolved, still with sore throat. Reports increased thirst, increased urination and urinating approx every 15 minutes, however states past day hasn't been urinating much. Pt states past 3 weeks with bilateral back and flank pain described as aching. Denies dysuria, hematuria. Reports drinking approx 1 gallon water day. [place] nauseated the other day, no vomiting. 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 Chronic neck and back pain pt reports is degenerative changes and takes hydrocodone twice daily for this. Denies worsening pain. FH DM II - Father. Denies diaphoresis, N/V/D/C, LEONE, CP, orthopnea, palpitations, hemoptysis, choking, otalgia, extremity edema. In ER T: 36.4, Pulse:110-88, R: 20, BP: 136/85, Pulse ox down to 85% on RA. WBC : 12.7. Corrected Na for hyperglycemia was 132. Glucose: 694. K: 4.6. Beta- hydroxybuteric acid: 13.8. anion gap: 10. pending U/A. CXR: negative. EKG: sinus rhythm 85. Pt started on oxy mask pulse ox: 95%. Given DuoNeb, Zofran, morphine, Toradol in ER. 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 (4) Anxiety Status: Chronic (5) Asthma Status: Chronic (6) Depression Status: Chronic (7) Djd Bilateral Knees Status: Chronic (8) Knee effusion, right Status: Resolved (9) Knee pain Status: Chronic (10) Right knee pain Status: Resolved (11) Vomiting Status: Resolved Surgical Problems: (1) Elbow fracture, right Permanent Comment: Hx right elbow fracture and surgical repair Status: Resolved (2) History of bilateral knee replacement Status: Resolved (3) History of selective injection of anesthetic agent around lumbar nerve root Status: Resolved Family History Diabetes mellitus FH: heart disease Hypertension Social History Smoking Status: Current Every Day Smoker (smoking 0.5ppd x 2 years, previously smoked 1ppd x 15 years.) Smokeless Tobacco Use: No Alcohol Use: 1 beer every 6 months Drug Use: none Marital Status: single Housing status: lives with family Occupational Status: employed Immunizations History of Influenza Vaccine: Unknown History of Tetanus Vaccine?: Unknown History of Pneumococcal: Unknown History of Hepatitis B Vaccine: Unknown Multi-Drug Resistant Organisms History of MDRO: No Allergies Coded Allergies: Bee Venom (Verified Allergy, Severe, ANAPHYLAXIS, 08/10/17) Reported by PT Home Medications Scheduled Aspirin (Aspirin), 1 TAB PO DAILY Doxycycline Monohydrate (Monodox), 100 MG PO BID Fluticasone Propionate (Flovent Hfa), 2 PUFFS INH BID Fluticasone Propionate (Nasal) (Flonase Allergy Relief), 2 SPRAYS MARYBEL DAILY Ibuprofen (Ibuprofen), 1 TAB PO Q8 Loratadine (Claritin), 10 MG PO DAILY Prednisone (Prednisone), 0 PO UD Scheduled PRN Albuterol Hfa (Ventolin Hfa), 2 PUFFS INH Q4 PRN for SOB/Wheezing Epinephrine (Epipen), 0.3 MG IM UD PRN for ALLERGIC REACTION Hydrocodone/Acetaminophen 5MG/325MG ([place] 5MG/325MG), 1 TABLET PO BID PRN for Pain Review of Systems Constitutional: + problem reported (see HPI) Eyes: No eye pain, No redness, No discharge ENT: + sore throat (see HPI), No hearing loss, No unusual epistaxis, No trouble swallowing Respiratory: + problem reported (see HPI) Cardiovascular: No chest pain, No edema, No claudication, No palpitations Abdomen: No vomiting, No diarrhea, No constipation, No GI bleeding, No problem reported Musculoskeletal: + problem reported (see HPI) Genitourinary - Male: + urinary frequency (see HPI), No hematuria, No dysuria, No urinary hesitancy, No urinary retention, No urinary incontinence Neurologic: No memory loss, No paralysis Psychiatric: No depression symptoms, No anxiety Endocrine: + excessive thirst (see HPI) Hematologic / Lymphatic: No abnormal bleeding/bruising, No clotting problems, No night sweats Integumentary: + rash (pt states itchy bump to L forearm that he has been scratching, no other rashes noted. no contacts with rash. no surrounding erythema) Physical Exam Vital Signs Date Time Temp Pulse Resp B/P (MAP) Pulse Ox O2 Delivery O2 Flow Rate FiO2 08/10/17 10:40 88 20 135/90 87 Room Air 08/10/17 09:34 84 08/10/17 08:26 36.4 110 20 136/85 97 Room Air General Appearance: + pertinent finding (overweight, mildly ill appearing, non- toxic appearance) Head: normocephalic, atraumatic Eyes: normal inspection, PERRL, EOMI, sclerae normal ENT: hearing grossly normal, + pharyngeal erythema (no exudate or white patches noted, uvula midline, no trismus) Neck: supple, trachea midline, + adenopathy present (cervical) Respiratory/Chest: chest non-tender, no respiratory distress, no accessory muscle use, + wheezing (expiratory wheezing scattered throughout. Pt on oxygen mask) Cardiovascular: regular rate, rhythm, no edema, no murmur, normal peripheral pulses Abdomen/GI: normal bowel sounds, non tender, soft Back: no CVA tenderness Extremities/Musculoskelatal: no calf tenderness, no pedal edema, normal range of motion, non-tender Neurologic/Psych: alert, normal mood/affect, oriented x 3 Skin: normal color, warm/dry, + pertinent finding (left forearm with cluster of excoriated papules without surrounding erythema or edema) Diagnostics Laboratory Results Results Past 24 Hours Test 08/10/17 09:37 08/10/17 11:45 08/10/17 12:42 Range/Units White Blood Count 12.76 4.8-10.8 K/uL Red Blood Count 6.21 4.7-6.1 M/uL Hemoglobin 17.8 14.0-18.0 g/dL Hematocrit 49.0 42-52 % Mean Corpuscular Volume 78.9 80-100 fL Mean Corpuscular Hemoglobin 28.7 25-34 pg Mean Corpuscular Hemoglobin Concent 36.3 32-36 g/dl Platelet Count 336 130-400 K/uL Mean Platelet Volume 11.5 7.4-10.4 fL Neutrophils (%) (Auto) 63.2 % Lymphocytes (%) (Auto) 27.6 % Monocytes (%) (Auto) 7.8 % Eosinophils (%) (Auto) 1.0 % Basophils (%) (Auto) 0.2 % Neutrophils # (Auto) 8.07 1.4-6.5 K/uL Lymphocytes # (Auto) 3.52 1.2-3.4 K/uL Monocytes # (Auto) 0.99 0.11-0.59 K/uL Eosinophils # (Auto) 0.13 0-0.5 K/uL Basophils # (Auto) 0.03 0-0.2 K/uL RDW Standard Deviation 39.2 36.4-46.3 fL RDW Coefficient of Variation 13.9 11.5-14.5 % Immature Granulocyte % (Auto) 0.2 % Immature Granulocyte # (Auto) 0.02 0.00-0.02 K/uL Prothrombin Time 9.7 9.0-12.0 SECONDS Prothromb Time International Ratio 0.9 0.9-1.1 Activated Partial Thromboplast Time 22.9 21.0-31.0 SECONDS Partial Thromboplastin Ratio 0.9 Sodium Level 122 136-145 mmol/L Potassium Level 4.6 3.5-5.1 mmol/L Chloride Level 84 98-107 mmol/L Carbon Dioxide Level 28 21-32 mmol/L Anion Gap 10.0 3-11 mmol/L Blood Urea Nitrogen 24 7-18 mg/dl Creatinine 1.26 0.60-1.40 mg/dl Est Creatinine Clear Calc Drug Dose 93.6 ml/min Estimated GFR () 78.8 Estimated GFR (Non- 68.0 BUN/Creatinine Ratio 19.2 10-20 Random Glucose 694 70-99 mg/dl Calcium Level 10.1 8.5-10.1 mg/dl Total Bilirubin 0.6 0.2-1 mg/dl Aspartate Amino Transf (AST/SGOT) 17 15-37 U/L Alanine Aminotransferase (ALT/SGPT) 39 12-78 U/L Alkaline Phosphatase 133 45-117 U/L Total Creatine Kinase 109 39-308 U/L Creatine Kinase MB 1.1 0.5-3.6 ng/ml Creatine Kinase MB Ratio 1.0 0-3.0 Troponin I < 0.015 0-0.045 ng/ml Total Protein 8.3 6.4-8.2 gm/dl Albumin 4.3 3.4-5.0 gm/dl Globulin 4.0 2.5-4.0 gm/dl Albumin/Globulin Ratio 1.1 0.9-2 Beta-Hydroxybutyric Acid 13.80 0.2-2.81 mg/dL Microbiology Results 08/10/17 Blood Culture, Ordered Pending 08/10/17 Blood Culture, Ordered Pending Diagnostic Radiology CXR: IMPRESSION: No acute cardiopulmonary findings. EKG EKG: NSR, rate 85, no ST elevations noted Impression Assessment and Plan HHS Pt with hx polyuria, polydipsia, weakness x 3 weeks. Pt with respiratory symptoms x 3 weeks and was started on prednisone 08/07/17. Pt with suspected undiagnosed DM II and HA1C today is 11.9. Glucose: 694, beta-hydroxybutyric acid : 13.8. K: 4.6. Anion gap: 10. HCO3: 27. Negative troponin. EKG: NSR, rate 85. -IVF initiated -pharmacy glycemic consult to help manage insulin drip -serial prp to monitor electrolytes -repeat phosphorus and magnesium labs -repeat VBG HYPONATREMIA Corrected Na was 132 for glucose of 694 -continue to monitor electrolytes LEUKOCYTOSIS Pt reports fever 101.9F past 2 days. Afebrile in ER, after pt took antipyretic prior to ER arrival. Pt was on prednisone past couple of days. WBC: 12. CXR: no infiltrate noted -Pending U/A, pending blood cultures, lactic acid and procalcitonin -Rocephin and Zithromax started to cover possible CAP -repeat cbc HYPOXIA/HX ASTHMA Pt with O2 sat in 80's on RA in ER and placed on oxy mask. CXR no infiltrate. -Influenza pending. D-dimer pending and if elevated consider PE R/O. -supplemental O2 prn -continue to monitor ORAL CANDIDIASIS Pt with white patches, sore throat and mouth started a couple of weeks ago and on clotrimazole lozenges. Still with symptoms. -ordering rapid strep to r/o strep pharyngitis -nystatin swish and swallow ZEN Cr: 1.26, baseline 1.1. Pt with dehydration -IVF -monitor renal functions -avoid NSAIDs, nephrotoxic agents when possible FLANK PAIN Reports bilateral CVA, flank pain x couple weeks. Pending U/A -CT abd/pelvis ordered CHRONIC NECK/BACK PAIN Pt was given toradol and morphine in ER -Hold on further NSAIDs at this time. Continue home hydrocodone prn pain TOBACCO ABUSE -smoking cessation discussed -pt denies nicotine patch at this time DVT PROPHYLAXIS -Heparin SQ DISPOSITION -admit tele Full code -Follows with Dr Metzger for routine care Pt was seen with Dr Francisco. See addendum ATTENDING ADDENDUM : pt seen and examined, care co ordinated with Gabbie CEJA lab and images reviewed 46 yo M with no known hx of Diabetes, has been having flu like symptom for past 3 weeks , had fever and chills, nasal congestion , headache , cough with productive sputum , generalized body ache he also noted increased thrust -says " Drinking like crazy " gallons of water , urinating a lot , had occasional blurred vision , increased weakness, fatigue Pt was seen at [facility] on 08/07/17 -was thought to have "Walking Pneumonia " ordered for Doxycycline , and Prednisone taper 10 mg tab - 5 tab for 2 day , 4 tab for 2 day , 3 tab for 2 day , 2 tab for 2 day and 1 tab for 2 day pt took his meds including the Prednisone , started to feel worse , had audible wheeze, pain in bilateral flank and rt sided subcostal area worse with minimum movement , developed SOB /PÉREZ came to ER for evaluation in ER -his BSG was > 600 , with normal Hco3, normal anion gap , Hypoxic 87 % in RA required 2 L supplemental 02, Cxray was negative for acute pathology VITALS : Last 8 Hrs Date Time Temp Pulse Resp B/P (MAP) Pulse Ox O2 Delivery O2 Flow Rate FiO2 08/10/17 14:23 91 14 91 Room Air 08/10/17 10:40 88 20 135/90 87 Room Air 08/10/17 09:34 84 08/10/17 08:26 36.4 110 20 136/85 97 Room Air P/E: GEN : no sign of distress , appears to be very tired , mentions feeling better than the morning HEENT : dry oral mucosa HT; regular LUNGS; + wheeze, no rales ABDOMEN: soft, + tenderness on rt subcostal area with radiation to back , minimum movement making it worse , 02/22 , Durham's sign -negative CVA tenderness on rt , bowel sound active EXT :no rash or deformity NEURO: AAO x3, no focal deficit A/p ; HYPERGLYCEMIA /DIABETES TYPE 2 UNDIAGNOSED : presents with BSG > 600 with symptom of increased thirst/ urination /blurred vision -occasionally , increased fatigue Family Hx of DM -Father hco3 25 /AG 10 possible Type 2 Dm ( undiagnosed ) presents with [facility] due to recent acute illness Hb A1c 11 .8 ordered IV insulin 10 U stat insulin IV gtt as per [facility] protocol cont aggressive IV hydration per protocol PRP /Mg /Phos /VBG ordered per protocol rule out underlying infection -blood cultures ordered parent educator consulted FLU LIKE SYMPTOM : had > 1 week of body ache /fever /malaise , headache /cough ordered for Influenza Ag droplet precaution IV hydration as above HYPOXIA /SOB : no infiltrate in Chest xray , had cough at home possible upper away infection /bronchitis was on PO Doxycycline as out pt ordered for IV Rocephin /PO Zithromax negative D Dimer Diffuse wheeze -possible underlying emphysema /COPD -hx of heavy smoking ( not diagnosed ) schedule neb tx , IV steroids avoided due to Hyperglycemia /uncontrolled DM TOBACCO ABUSE DISORDER : counselling provided refused to have nicotine patch FULL CODE Please refer to documentation of Gabbie ALARCON for further discussion of other issues CRISTIN FRANCISCO MD Level of Care Telemetry Resuscitation Status FULL RESUSCITATION VTE Prophylaxis VTE Risk Assessment Done? Y/N: Yes Risk Level: Low Given or contraindicated: Unfractionated heparin SQ Additional Copies To Joe Metzger M.D.
[2017-08-10] MEDS ORDERED: NSS + 20MEQ KCL 1000ML 1,000 ML IV SCH (15:30)
--- NOTE | 2017-08-10 15:38 | Progress Note ---
Progress Note Date of Service Aug 10, 2017. Progress Note ATTENDING ADDENDUM : 1242 Labs reviewed : BSG worsened 694-> 757 ; on insulin gtt ; pharmacy following ,IV insulin rate adjusted per protocol Pseudohyponatremia: Na 122-> 119 : due to worsening of hyperglycemia corrected Na 135 ACUTE KIDNEY INJURY /ATN : Cr worsened 1.26-> 1.46 pt continued with aggressive IV hydration ; will increase rate to 250 ml/hr pt given 30 mg IV Toradol in ER due to back /flank pain avoid NSAIDS', IV Contrast possible underlying CKD /Diabetic nephropathy due untreated DM for unknown duration Nephrology eval requested Beta hydroxybutyrate level improved 13.80- > 1.96 Lactic acidosis > 3 all electrolytes /lactic acid level will be followed q 4hrs till clinical improvement CT abdomen /Pelvis with out contrast: IMPRESSION: 1. Suboptimal examination without oral and IV contrast. 2. Findings suggest faint acute diverticulitis involving the proximal sigmoid colon. Clinical correlation will be required. 3. There is no evidence of intraperitoneal free air or abscess. 4. Hepatomegaly and hepatic steatosis. no kidney stone Abx changed to Zosyn adjusted dose per renal clearance : D/c Rocephin / Zithromax Flu Ag -negative pt's clinical presentation very typical of viral illness cont Droplet precaution Influenza PCR ordered -more sensitive pt is beyond to time frame to be treated with Tamiflu empirically
[2017-08-10 15:46] VITALS: BMI 31.3
--- NOTE | 2017-08-10 15:54 | DIAGNOSTIC IMAGING REPORT ---
CT SCAN OF THE ABDOMEN AND PELVIS WITHOUT IV CONTRAST CLINICAL HISTORY: Bilateral flank pain. COMPARISON STUDY: Abdominal CT dated 10/13/2016. TECHNIQUE: CT scan of the abdomen and pelvis is performed from the lung bases to the proximal femora. Images are reviewed in the axial, sagittal, and coronal planes. IV contrast was not administered for this examination as per the referring clinician. Note that the examination was performed in suboptimal fashion without oral and IV contrast. A dose lowering technique was utilized adhering to the principles of ALARA. CT DOSE: 810.19 mGy.cm FINDINGS: Lung bases: The heart is normal in size and without pericardial effusion. There are coronary artery calcifications. The lung bases are clear noting dependent atelectasis. There is a tiny hiatal hernia. Liver: The unenhanced liver is enlarged, measuring 23 cm in length. The liver demonstrates diffusely diminished attenuation consistent with hepatic steatosis. Fatty sparing is seen adjacent to gallbladder fossa. There is no intrahepatic biliary ductal dilatation. Gallbladder: Unremarkable. Spleen: Normal in size and attenuation. Pancreas: Unremarkable. Adrenal glands: Unremarkable. Kidneys: The unenhanced kidneys are normal in size and without hydronephrosis. There are no renal calculi identified. There is no evidence of contour deforming renal mass lesion. Abdominal vasculature: The abdominal aorta is normal in course and caliber noting mild atherosclerotic calcification. Bowel: There is mild colonic diverticulosis. Minimal inflammatory change is seen around a diverticulum in the proximal sigmoid colon in the left pelvis on image #[id number]. Correlate clinically for evidence of minimal acute diverticulitis. There is no evidence of abscess. No bowel obstruction is identified. The appendix is well-visualized and normal. Peritoneum: There is no intraperitoneal free air or abdominal ascites. There is a small fat-containing umbilical hernia. Lymphadenopathy: None. Pelvic viscera: The bladder, prostate, and seminal vesicles are normal as visualized. Skeletal structures: No lytic or blastic lesions are seen. IMPRESSION: 1. Suboptimal examination without oral and IV contrast. 2. Findings suggest faint acute diverticulitis involving the proximal sigmoid colon. Clinical correlation will be required. 3. There is no evidence of intraperitoneal free air or abscess. 4. Hepatomegaly and hepatic steatosis. 5. Additional findings as above. Electronically signed by: Juan Santana M.D. 08/10/2017 3:52 PM Dictated Date/Time: 08/10/2017 3:48 PM
[2017-08-10] MEDS ORDERED: PIPERACILL/TAZOBAC CONSULT ACTIVE PRN (16:15)
[2017-08-10] MEDS ORDERED: PIPERACILL/TAZOBAC IV 3.375 GM in DEXTROSE 5% 100ML 100 ML IV SCH (16:30)
[2017-08-10 16:56] LABS: CALCIUM 9.1 mg/dl (8.5-10.1); CREATININE 1.48 mg/dl (0.60-1.40); PHOSPHORUS 3.7 mg/dl (2.5-4.9); POTASSIUM 3.6 mmol/L (3.5-5.1)
[2017-08-10 17:18] LABS: INFLUENZA A PCR Neg for Influ A (NEG); INFLUENZA B PCR Neg for Influ B (NEG)
[2017-08-10] MEDS: INSULIN ASPART 100 UNITS/ML 3 ML PEN SC SCH ×2 (18:03→20:25)
[2017-08-10 19:25] VITALS: BP 119/69; PULSE 76; TEMP 36.5; O2SAT 94
--- NOTE | 2017-08-10 19:37 | NEPHROLOGY CONSULTATION ---
DATE OF CONSULTATION: 08/10/2017 ATTENDING OF RECORD: Dr. Mujica. REASON FOR CONSULTATION: ZEN. HISTORY OF PRESENT ILLNESS: This is a 46-year-old male who is an active smoker. No history of hypertension, no previous history of diabetes, who has been having diffuse muscle aches, low grade fevers, extreme thirst, increased urination and productive cough for the last several weeks. The patient denies chronic ibuprofen use, but there are reports stating that he did take ibuprofen during these last couple weeks. The patient comes in with a creatinine of 1.26, with a bicarbonate of 28 with a sodium level of 122 and a glucose of 593 with a hemoglobin A1c of 11.9. The patient does have a family history of diabetes, beta hydroxybutyric acid was 13.8. The patient on an insulin drip and IV antibiotics as well as IV fluid resuscitation. Flu swab was negative. PAST MEDICAL HISTORY: Asthma, depression, and anxiety. PAST SURGICAL HISTORY: Bilateral knee replacements and right elbow fracture with repair. FAMILY HISTORY: Significant for diabetes. SOCIAL HISTORY: Active smoker, half pack per day times several years. No alcohol, no drugs. Single and lives with family. REVIEW OF SYSTEMS: Positive fevers, no chills. Positive nausea. No diarrhea. Positive increased thirst. Positive increased urination. No diarrhea. Positive productive cough. No chest pain. No rash. All other review of systems otherwise negative. CURRENT MEDICATIONS: Flonase 2 sprays daily, Claritin 10 mg daily, Zosyn 3.375 IV q. 8, normal saline with 20 of K at 250 mL an hour, heparin 5000 units subQ q. 8, sliding scale insulin and did receive 1 dose of Toradol. PHYSICAL EXAMINATION: VITAL SIGNS: Temperature 36.6, pulse 82, respiration rate is 19, blood pressure 125/79, satting 90% on room air. GENERAL: Awake, alert, oriented x3. EYES: No scleral icterus. HEENT: Mucous membranes are dry. NECK: Supple. PULMONARY: Positive end expiratory wheeze. CARDIAC: Regular rate and rhythm. ABDOMEN: Bowel sounds positive, soft, nontender, nondistended. EXTREMITIES: No clubbing, cyanosis or edema. NEUROLOGICALLY: Nonfocal. DERMATOLOGIC: No ulcers noted. LABORATORIES: Pending for now. We have a lactic acid of 3.83, potassium of 4.6, mag of 2.4. Sodium level 119 at last draw, chloride of 82, BUN of 25, creatinine 1.47, glucose of 760, hemoglobin A1c of 11.9, phosphorus of 5.2, calcium of 9.8. Blood gas shows a pH 7.39, pCO2 of 45, pO2 of 76, and a bicarb of 27, on room air. INR is 0.9. UA showed a pH of 5, specific gravity 1.041, trace ketones, 3+ glucose. White count is 12, H&H 17 and 49, platelet count of 336. Blood cultures are pending. IMAGING DATA: Abdominal pelvis CT for possible faint acute diverticulitis in the proximal sigmoid colon, hepatomegaly with fatty liver. Chest x-ray shows no acute findings. IMPRESSION AND PLAN: 1. Acute kidney injury in the setting of volume depletion from hyperglycemia. Continue aggressive IV fluid resuscitation. Does have hyperglycemia, but does not appear to be in diabetic ketoacidosis at this point. Agree with the IV fluid and aggressive fluid resuscitation. The patient appears clinically dry. 2. Hyponatremia. Sodium level of 119 with a glucose of 760, indicating relatively normal sodium levels when corrected for glucose. Continue with aggressive normal saline supplementation. As the glucose levels trend down, hopefully, sodium levels continued to go up into the normal range. No indication for emergent dialysis. We will follow along. Appears to be new onset diabetes in the setting of infection with acute kidney injury, hyponatremia in the setting of hyperglycemia and significant volume depletion. On appropriate IV antibiotics. Cultures are pending and continue aggressive fluid resuscitation. Appreciate consultation. OTTO
[2017-08-10 19:54] VITALS: PULSE 79; O2SAT 93
[2017-08-10 20:19] LABS: CALCIUM 8.6 mg/dl (8.5-10.1); CREATININE 1.24 mg/dl (0.60-1.40); PHOSPHORUS 3.7 mg/dl (2.5-4.9); POTASSIUM 3.4 mmol/L (3.5-5.1)
[2017-08-10] MEDS: D5W AND 1/2NSS + 20MEQ KCL 1000 ML IV SCH (20:21)
[2017-08-10] MEDS: FLUTICASONE HFA 110MCG INHALER INH SCH (20:25)
[2017-08-10] MEDS ORDERED: PNEUMOCOCCAL ADMINISTRATION CHARGE ONE (20:30)
[2017-08-10] MEDS ORDERED: PNEUMOCOCCAL POLYSACCHARIDES 25 MCG/0.5 ML VIAL/SYR IM. ONE (20:30)
[2017-08-10] MEDS ORDERED: OSELTAMIVIR PHOSPHATE SUSP 30 MG/5 ML UDP PO SCH (21:00)
[2017-08-10] MEDS ORDERED: POTASSIUM PHOS 3 MMOL/1 ML INFUSION IV STA (21:04)
--- NOTE | 2017-08-10 21:05 | Progress Note ---
Progress Note Date of Service Aug 10, 2017. Progress Note Attending addendum : Influenza PCR negative for A/B Tamiflu D/allan pt can be off Droplet precaution 8 PM lab reviewed : ZEN /ATN improved Cr 1.24 K 3.3 -ordered for replacement Phos 2.2 -6 millimole of K phos ordered , repeat lab at midnight
[2017-08-10] MEDS ORDERED: POTASSIUM PHOSPHATE INJ 6 MMOL in SODIUM CHLORIDE 0.9% 100ML 100 ML IV ONE (21:15)
[2017-08-10] MEDS ORDERED: POTASSIUM CHLORIDE 10 MEQ TABCR PO ONE (21:30)
[2017-08-10] MEDS: PIPERACILL/TAZOBAC IV 3.375 GM in DEXTROSE 5% 100ML 100 ML IV SCH (21:58)
[2017-08-11] VITALS (10 sets, daily range): BP systolic 108–129; BP diastolic 65–75; PULSE 64–79; TEMP 36.4–36.8; O2SAT 92–99
[2017-08-11 00:21] LABS: CALCIUM 8.1 mg/dl (8.5-10.1); CREATININE 0.87 mg/dl (0.60-1.40); PHOSPHORUS 3.3 mg/dl (2.5-4.9); POTASSIUM 3.5 mmol/L (3.5-5.1)
[2017-08-11] MEDS: D5W AND 1/2NSS + 20MEQ KCL 1000 ML IV SCH ×2 (01:28→07:07)
[2017-08-11] MEDS: IPRATROPIUM BROMIDE NEB SOLN 0.02% 2.5 ML VIAL INH SCH ×2 (01:50→07:29)
[2017-08-11] MEDS: LEVALBUTEROL 1.25MG/0.5ML NEB INH SCH ×2 (01:50→07:29)
[2017-08-11 04:44] LABS: CALCIUM 7.6 mg/dl (8.5-10.1); CREATININE 0.96 mg/dl (0.60-1.40); POTASSIUM 3.4 mmol/L (3.5-5.1)
[2017-08-11 04:53] LABS: PHOSPHORUS 2.4 mg/dl (2.5-4.9)
[2017-08-11] MEDS ORDERED: CALCIUM GLUCONATE 10% 1,000 MG in SODIUM CHLORIDE 0.9% 50ML 50 ML IV STA (04:59)
[2017-08-11] MEDS ORDERED: POTASSIUM CHLORIDE 10 MEQ TABCR PO STA (04:59)
[2017-08-11 05:52] LABS: HEMATOCRIT 40.2 % (42-52); MEAN CELL VOLUME 79.1 fL (80-100); MEAN CORPUSCULAR HEMOGLOBIN 27.6 pg (25-34); MEAN CORPUSCULAR HGB CONC 34.8 g/dl (32-36); MEAN PLATELET VOLUME 10.6 fL (7.4-10.4); PLATELET COUNT 243 K/uL (130-400); RED CELL DISTRIBUTION WIDTH CV 13.7 % (11.5-14.5); RED CELL DISTRIBUTION WIDTH SD 38.9 fL (36.4-46.3); WHITE BLOOD COUNT 9.03 K/uL (4.8-10.8)
[2017-08-11] MEDS: PIPERACILL/TAZOBAC IV 3.375 GM in DEXTROSE 5% 100ML 100 ML IV SCH ×3 (05:54→22:21)
[2017-08-11] MEDS: HEPARIN SOD 5000 UNIT/0.5 ML CARP SQ SCH ×3 (06:09→22:20)
[2017-08-11] MEDS ORDERED: POTASSIUM CHLORIDE INJ 20 MEQ in D5W AND LACTATED RINGERS 1,000 ML IV SCH (08:15)
[2017-08-11] MEDS: INSULIN ASPART 100 UNITS/ML 3 ML PEN SC SCH ×4 (08:19→21:40)
[2017-08-11] MEDS: FLUTICASONE PROPIONATE NA SPR 16 GM BTL NAE SCH (08:24)
[2017-08-11] MEDS: NYSTATIN SUSP 500,000 U/5 ML UDC PO SCH ×4 (08:25→21:31)
[2017-08-11] MEDS: LORATADINE 10 MG TAB PO SCH (08:26)
[2017-08-11] MEDS: FLUTICASONE HFA 110MCG INHALER INH SCH (08:27)
[2017-08-11 08:44] LABS: CALCIUM 8.3 mg/dl (8.5-10.1); CREATININE 0.81 mg/dl (0.60-1.40); POTASSIUM 3.6 mmol/L (3.5-5.1)
[2017-08-11 08:45] LABS: PHOSPHORUS 1.9 mg/dl (2.5-4.9)
[2017-08-11] MEDS: INSULIN REGULAR 250 UNITS in SODIUM CHLORIDE 0.9% 250ML 250 ML IV SCH ×4 (09:00→15:39)
[2017-08-11] MEDS ORDERED: AZITHROMYCIN 250 MG TAB PO SCH (09:00)
[2017-08-11] MEDS: IPRATROPIUM BROMIDE HFA INHALER INH SCH ×2 (13:00→17:29)
[2017-08-11] MEDS: LEValbuterol HFA 15GM INHALER INH SCH ×2 (13:00→17:28)
--- NOTE | 2017-08-11 13:21 | Pharmacy Progress Note ---
Pharmacy Glycemic Short Note 2 Date of Service Aug 11, 2017. OUTPATIENT ANTIDIABETIC REGIMEN: * none (no previous diagnosis) ASSESSMENT: * 46 yr old male admitted with severe steroid induced hyperglycemia in the setting of suspected undiagnosed diabetes. Positive family history for DM. Patient complains of respiratory symptoms and was started on prednisone taper, doxycycline and flonase on 08/07. He is currently on Zosyn for possible diverticulitis and GNB 1/2 BC. * IV insulin drip initiated per protocol ([facility]HS goal range utilized initially). Goal range lowered to 110-190 mg/dL this am. Hyperglycemia improving but BSG remains consistently > 250 mg/dL; likely due to D5LR @ 200 mls/hr. Hyponatremia and hydration status improving (corrected Na 135 meq this morning). * Will initiate weight based Lantus in attempt to decrease insulin drip rate and assist in later transition off of insulin drip. * Will utilize set carb ratio of 5 rather than fixed carb ratio calculated by insulin infusion calculator PLAN FOR INPATIENT GLYCEMIC CONTROL: * IV insulin infusion per protocol * Basal insulin * Lantus 40 units SQ now * Lantus 10-28 units SQ BID (10 for BSG < 120, 20 for BSG 120-180, 28 for BSG > 180) * Bolus insulin * NovoLog per scale ACHS o * Goal Range: Low 120 mg/dL - High 150 mg/dL * Correction Factor: -- (per drip) mg/dL/unit * Nutritional / Prandial insulin per carb ratio of 1 unit per 5 grams CHO consumed DISCHARGE PLANNING * Patient meets diagnosis for diabetes based on Alc of 11.9% (recent steroid may have contributed to this elevation, although likely not significant since patient was only on steroid for 4 days) * Per ADA 2017 Standards of Care, treatment with combination injectable therapy is recommended for A1c if 10% or greater.
[2017-08-11] MEDS ORDERED: INSULIN GLARGINE SOLOSTAR 100 UNITS/ML 3 ML PEN SC ONE (13:30)
[2017-08-11] MEDS: NSS + 20MEQ KCL 1000ML 1,000 ML IV SCH (14:14)
--- NOTE | 2017-08-11 15:05 | Progress Note ---
Medicine Progress Note Date & Time of Visit: Aug 11, 2017 at 14:57. Subjective seen resting in bed friend visiting states he feels improved compared to yesterday less cough, dyspnea no abdominal pain, problems with BM or urination reports some mild sore throat denies chest pain, dyspnea, palpitations, dizziness no other symptoms Objective Last 8 Hrs Date Time Temp Pulse Resp B/P (MAP) Pulse Ox O2 Delivery O2 Flow Rate FiO2 08/11/17 11:55 99 Room Air 08/11/17 11:54 Room Air 08/11/17 11:22 36.5 72 18 129/74 (92) 94 Room Air 08/11/17 08:00 Room Air 08/11/17 08:00 36.5 70 20 119/69 (86) 92 Room Air 08/11/17 07:29 77 16 98 Room Air Physical Exam: General- oriented x 3, not in distress, speaks in sentences with no effort Head- atraumatic Eyes- PERRL, EOMI, anicteric ENT- (+) oral thrush Neck- supple, no JVD, no adenopathy, no thyromegaly; Lungs- clear breath sounds bilaterally, no rales/wheezes Heart- regular rhythm; no murmur, normal rate Abdomen- normal bowel sounds, soft, nontender Extremities- no pretibial edema, no calf tenderness; peripheral pulses intact Neuro- alert, oriented x 3; no gross focal deficits Skin- warm & dry Laboratory Results: Last 24 Hours Test 08/10/17 16:02 08/10/17 16:05 08/10/17 16:58 08/10/17 18:02 Bedside Glucose 456 mg/dl 406 mg/dl 379 mg/dl Venous Blood pH 7.44 Sodium Level 127 mmol/L Potassium Level 3.6 mmol/L Chloride Level 90 mmol/L Carbon Dioxide Level 27 mmol/L Anion Gap 10.0 mmol/L Blood Urea Nitrogen 28 mg/dl Creatinine 1.48 mg/dl Est Creatinine Clear Calc Drug Dose 80.2 ml/min Estimated GFR () 64.8 Estimated GFR (Non- 55.9 BUN/Creatinine Ratio 18.6 Random Glucose 473 mg/dl Calcium Level 9.1 mg/dl Phosphorus Level 3.7 mg/dl Magnesium Level 2.4 mg/dl Beta-Hydroxybutyric Acid 1.95 mg/dL Test 08/10/17 18:57 1/26/18 19:36 08/10/17 19:58 08/10/17 20:16 Bedside Glucose 349 mg/dl 249 mg/dl 213 mg/dl Venous Blood pH 7.41 Sodium Level 129 mmol/L Potassium Level 3.4 mmol/L Chloride Level 95 mmol/L Carbon Dioxide Level 27 mmol/L Anion Gap 7.0 mmol/L Blood Urea Nitrogen 28 mg/dl Creatinine 1.24 mg/dl Est Creatinine Clear Calc Drug Dose 95.7 ml/min Estimated GFR () 80.3 Estimated GFR (Non- 69.3 BUN/Creatinine Ratio 22.6 Random Glucose 297 mg/dl Lactic Acid Level mmol/L Calcium Level 8.6 mg/dl Phosphorus Level 3.7 mg/dl Magnesium Level 2.1 mg/dl Beta-Hydroxybutyric Acid 1.34 mg/dL Chemistry Specimen Hemolysis Test 08/10/17 21:00 08/10/17 22:11 08/10/17 22:57 08/10/17 23:49 Bedside Glucose 276 mg/dl 317 mg/dl 284 mg/dl 268 mg/dl Test 08/10/17 23:51 08/11/17 01:11 08/11/17 02:03 08/11/17 03:05 Venous Blood pH 7.39 Sodium Level 131 mmol/L Potassium Level 3.5 mmol/L Chloride Level 98 mmol/L Carbon Dioxide Level 26 mmol/L Anion Gap 7.0 mmol/L Blood Urea Nitrogen 22 mg/dl Creatinine 0.87 mg/dl Est Creatinine Clear Calc Drug Dose 136.5 ml/min Estimated GFR () 120.0 Estimated GFR (Non- 103.5 BUN/Creatinine Ratio 25.6 Random Glucose 280 mg/dl Lactic Acid Level mmol/L Calcium Level 8.1 mg/dl Phosphorus Level 3.3 mg/dl Magnesium Level 2.0 mg/dl Bedside Glucose 274 mg/dl 271 mg/dl 254 mg/dl Test 08/11/17 04:04 08/11/17 04:12 08/11/17 05:04 08/11/17 06:11 Bedside Glucose 263 mg/dl 268 mg/dl 281 mg/dl White Blood Count 9.03 K/uL Red Blood Count 5.08 M/uL Hemoglobin 14.0 g/dL Hematocrit 40.2 % Mean Corpuscular Volume 79.1 fL Mean Corpuscular Hemoglobin 27.6 pg Mean Corpuscular Hemoglobin Concent 34.8 g/dl RDW Standard Deviation 38.9 fL RDW Coefficient of Variation 13.7 % Platelet Count 243 K/uL Mean Platelet Volume 10.6 fL Venous Blood pH 7.38 Sodium Level 132 mmol/L Potassium Level 3.4 mmol/L Chloride Level 99 mmol/L Carbon Dioxide Level 29 mmol/L Anion Gap 4.0 mmol/L Blood Urea Nitrogen 19 mg/dl Creatinine 0.96 mg/dl Est Creatinine Clear Calc Drug Dose 123.7 ml/min Estimated GFR () 109.4 Estimated GFR (Non- 94.4 BUN/Creatinine Ratio 20.2 Random Glucose 262 mg/dl Lactic Acid Level 1.0 mmol/L Calcium Level 7.6 mg/dl Phosphorus Level 2.4 mg/dl Magnesium Level 1.9 mg/dl Test 08/11/17 06:59 08/11/17 08:01 08/11/17 08:06 Bedside Glucose 214 mg/dl 303 mg/dl Venous Blood pH 7.39 Sodium Level 133 mmol/L Potassium Level 3.6 mmol/L Chloride Level 99 mmol/L Carbon Dioxide Level 27 mmol/L Anion Gap 6.0 mmol/L Blood Urea Nitrogen 16 mg/dl Creatinine 0.81 mg/dl Est Creatinine Clear Calc Drug Dose 149.1 ml/min Estimated GFR () 123.5 Estimated GFR (Non- 106.6 BUN/Creatinine Ratio 19.5 Random Glucose 244 mg/dl Calcium Level 8.3 mg/dl Phosphorus Level 1.9 mg/dl Magnesium Level 2.0 mg/dl Assessment & Plan 46 year old male with history of Asthma, Allergic Rhinitis, Smoking presenting with weakness, fever and cough. HYPERGLYCEMIA LIKELY HHS, DM 2 NE DIAGNOSIS - BSGs improving to be transitioned to SC Insulin soon - A1c 11.9 - needs DM educator HYPOXIC RESPIRATORY FAILURE SECONDARY TO ASTHMA/COPD EXACERBATION SECONDARY TO ACUTE BRONCHITIS - failed therapy with Doxycycline and Prednisone - repeat CXR sputum Culture flu negative - improving, off oxygen supplement - continue empiric Zosyn IV Day 2 Nebs q6h ACUTE RENAL FAILURE, RESOLVED -on IV fluids R/O BACTEREMIA ff up cultures HYPOPHOSPHATEMIA replace HEPATOMEGALY outpatient ff up ALLERGIC RHINITIS Fluticasone added Afrin ORAL THRUSH Nystatin DVT prophylaxis Heparin Disposition pending Current Inpatient Medications: Current Inpatient Medications Medications (Trade) Dose Ordered Sig/Yang Route Start Time Stop Time Status Last Admin Dose Admin Miscellaneous Information (Consult Glycemic Management Pharmacy) 1 ea UD PRN N/A 08/10/17 12:08 09/09/17 12:07 Insulin Human Regular 250 units/ Sodium Chloride 252.5 ml @ 0 mls/hr Q24H IV 08/10/17 12:00 09/09/17 11:59 08/11/17 14:17 8.2 MLS/HR Glucose (Glucose 40% Gel) 15-30 GRAMS 15 GRAMS... UD PRN PO 08/10/17 12:00 09/09/17 11:59 Glucose (Glucose Chew Tab) 4-8 Tablets 4 Tabl... UD PRN PO 08/10/17 12:00 09/09/17 11:59 Dextrose (Dextrose 50% 50ML Syringe) 25-50ML OF 50% DW IV FOR... UD PRN IV 08/10/17 12:00 09/09/17 11:59 Glucagon (Glucagon Inj) 1 mg UD PRN SQ 08/10/17 12:00 09/09/17 11:59 Albuterol (Ventolin Hfa Inhaler) 2 puffs Q4 PRN INH 08/10/17 12:45 09/09/17 12:44 Epinephrine (Epipen) 0.3 mg UD PRN IM 08/10/17 12:45 09/09/17 12:44 Fluticasone Propionate (Flovent Hfa 110MCG Inhaler) 2 puffs BID INH 08/10/17 21:00 09/09/17 20:59 08/11/17 08:27 2 PUFFS Fluticasone Propionate (Flonase Nasal [place]) 2 sprays DAILY MARYBEL 08/11/17 09:00 09/10/17 08:59 08/11/17 08:24 2 SPRAYS Acetaminophen/ Hydrocodone Bitart ([place] 5/325 Tab) 1 tab BID PRN PO 08/10/17 12:45 08/24/17 12:44 Loratadine (Claritin Tab) 10 mg DAILY PO 08/11/17 09:00 09/10/17 08:59 08/11/17 08:26 10 MG Morphine Sulfate (MoRPHine SULFATE INJ) 1 mg Q4 PRN IV 08/10/17 12:45 08/24/17 12:44 Nystatin (Mycostatin Susp) 5 ml QID PO 08/10/17 13:00 09/09/17 12:59 08/11/17 13:45 5 ML Heparin Sodium (Porcine) (Heparin Sq 5000 Unit/0.5ml) 5,000 unit Q8 SQ 08/10/17 14:00 09/09/17 13:59 08/11/17 06:09 5,000 UNIT Acetaminophen (Tylenol Tab) 650 mg Q4H PRN PO 08/10/17 13:00 09/09/17 12:59 Al Hydrox/Mg Hydrox/Simethicone (Maalox Max Susp) 15 ml Q4H PRN PO 08/10/17 13:00 09/09/17 12:59 Magnesium Hydroxide (Milk Of Magnesia Susp) 30 ml Q12H PRN PO 08/10/17 13:00 09/09/17 12:59 Ondansetron HCl (Zofran Inj) 4 mg Q6H PRN IV 08/10/17 13:00 09/09/17 12:59 Nitroglycerin (Nitrostat Tab) 0.4 mg UD PRN SL 08/10/17 13:00 09/09/17 12:59 Polyethylene (Miralax Powder Packet) 17 gm DAILY PRN PO 08/10/17 13:00 09/09/17 12:59 Piperacillin Sod/ Tazobactam Sod 3.375 gm/Dextrose 115 ml @ 28.75 mls/ hr Q8H IV 08/10/17 22:00 08/20/17 13:59 08/11/17 14:26 28.75 MLS/HR Miscellaneous Information (Consult) 1 ea UD PRN N/A 08/10/17 16:15 09/09/17 16:14 Ipratropium [place] (Atrovent Hfa Inhaler) 2 puffs Q6 INH 08/11/17 13:00 09/10/17 12:59 08/11/17 13:00 2 PUFFS Levalbuterol (Xopenex Hfa Inhaler) 2 puffs Q6 INH 08/11/17 13:00 09/10/17 12:59 08/11/17 13:00 2 PUFFS Insulin Aspart (novoLOG ASPART) SLIDING SCALE ACHS SC 08/11/17 16:15 09/10/17 16:14 Insulin Glargine (Lantus Solostar Pen) SEE PROTOCOL BID SC 08/11/17 21:00 09/10/17 20:59 Potassium Chloride/Sodium Chloride 1,000 ml @ 75 mls/hr [id number] IV 08/11/17 13:45 09/10/17 13:44 08/11/17 14:14 75 MLS/HR Insulin Aspart (novoLOG ASPART) SLIDING SCALE 0000,0400 SC 08/12/17 00:00 08/12/17 04:01
[2017-08-11] MEDS: POT PHOSPHATE MONOBASIC W/ SOD TAB PO SCH ×3 (16:00→21:32)
[2017-08-11] MEDS ORDERED: DC IV INSULIN INFUSION ONE (19:00)
[2017-08-11] MEDS: FLUTICASONE/SALMETEROL 250/50 (ADVAIR) 14 PUFF/1 INHALER INH SCH (21:00)
--- NOTE | 2017-08-11 21:00 | DIAGNOSTIC IMAGING REPORT ---
CHEST 2 VIEWS ROUTINE HISTORY: Fever. r/o pneumonia COMPARISON: Chest 08/10/2017. FINDINGS: A few bibasilar linear densities consistent with subsegmental atelectasis or scarring. Otherwise, the lungs are clear. No pleural effusions. No pneumothorax. The heart is normal in size. IMPRESSION: No acute process. Electronically signed by: Toby Quintana M.D. 08/11/2017 8:58 PM Dictated Date/Time: 08/11/2017 8:57 PM
[2017-08-11] MEDS: OXYMETAZOLINE HCL 0.05% NA SPR 15 ML BTL SCH (21:30)
[2017-08-11] MEDS: INSULIN GLARGINE SOLOSTAR 100 UNITS/ML 3 ML PEN SC SCH (21:40)
[2017-08-12] VITALS (7 sets, daily range): BP systolic 102–134; BP diastolic 61–84; PULSE 67–82; TEMP 36.5–36.9; O2SAT 93–95
[2017-08-12] MEDS: INSULIN ASPART 100 UNITS/ML 3 ML PEN SC SCH ×6 (00:17→20:39)
[2017-08-12] MEDS ORDERED: INSULIN HUMAN REGULAR PER UNIT 5 UNITS in SYRINGE 4.95 ML IV SCH (04:15)
[2017-08-12] MEDS: NSS + 20MEQ KCL 1000ML 1,000 ML IV SCH (04:18)
[2017-08-12] MEDS: PIPERACILL/TAZOBAC IV 3.375 GM in DEXTROSE 5% 100ML 100 ML IV SCH ×3 (05:50→22:10)
[2017-08-12] MEDS: IPRATROPIUM BROMIDE HFA INHALER INH SCH ×5 (05:50→23:03)
[2017-08-12] MEDS: LEValbuterol HFA 15GM INHALER INH SCH ×5 (05:50→23:03)
[2017-08-12] MEDS: HEPARIN SOD 5000 UNIT/0.5 ML CARP SQ SCH ×3 (05:57→22:11)
[2017-08-12 06:31] LABS: HEMOGLOBIN 14.7 g/dL (14.0-18.0); MEAN CELL VOLUME 80.2 fL (80-100); MEAN CORPUSCULAR HEMOGLOBIN 28.1 pg (25-34); MEAN PLATELET VOLUME 11.3 fL (7.4-10.4); PLATELET COUNT 251 K/uL (130-400); RED CELL DISTRIBUTION WIDTH CV 14.1 % (11.5-14.5); RED CELL DISTRIBUTION WIDTH SD 40.5 fL (36.4-46.3); WHITE BLOOD COUNT 8.52 K/uL (4.8-10.8)
[2017-08-12 07:27] LABS: CALCIUM 7.6 mg/dl (8.5-10.1); CREATININE 0.77 mg/dl (0.60-1.40); PHOSPHORUS 1.9 mg/dl (2.5-4.9); POTASSIUM 3.9 mmol/L (3.5-5.1)
[2017-08-12] MEDS: POT PHOSPHATE MONOBASIC W/ SOD TAB PO SCH ×4 (08:03→20:34)
[2017-08-12] MEDS: FLUTICASONE PROPIONATE NA SPR 16 GM BTL NAE SCH (08:04)
[2017-08-12] MEDS: NYSTATIN SUSP 500,000 U/5 ML UDC PO SCH ×4 (08:04→20:34)
[2017-08-12] MEDS: LORATADINE 10 MG TAB PO SCH (08:04)
[2017-08-12] MEDS: OXYMETAZOLINE HCL 0.05% NA SPR 15 ML BTL SCH ×2 (08:05→20:32)
[2017-08-12] MEDS: FLUTICASONE/SALMETEROL 250/50 (ADVAIR) 14 PUFF/1 INHALER INH SCH ×2 (08:07→20:31)
[2017-08-12] MEDS: INSULIN GLARGINE SOLOSTAR 100 UNITS/ML 3 ML PEN SC SCH ×2 (08:16→20:39)
[2017-08-12] MEDS ORDERED: INSULIN ASPART 100 UNITS/ML 3 ML PEN SC ONE (09:00)
--- NOTE | 2017-08-12 09:12 | Progress Note ---
Medicine Progress Note Date & Time of Visit: Aug 12, 2017 at 09:12. Subjective seen resting in bed, comfortable states he feels improved compared to yesterday less dyspnea, cough and congestion denies fever/chills, abdominal pain no chest pain, dizziness, headache no other symptoms Objective Last 8 Hrs Date Time Temp Pulse Resp B/P (MAP) Pulse Ox O2 Delivery O2 Flow Rate FiO2 08/12/17 07:20 36.7 74 18 112/79 (90) 95 Room Air 08/12/17 04:00 Room Air 08/12/17 03:28 36.6 67 18 102/66 (78) 94 Room Air Physical Exam: General- oriented x 3, not in distress, speaks in sentences with no effort Eyes- anicteric ENT- (+) oral thrush- improving Neck- supple, no JVD Lungs- clear breath sounds bilaterally, no wheezing, no rales Heart- regular rhythm; no murmur, normal rate Abdomen- normal bowel sounds, soft, nontender Extremities- no pretibial edema, no calf tenderness; peripheral pulses intact Neuro- alert, oriented x 3; no gross focal deficits Skin- warm & dry Laboratory Results: Last 24 Hours Test 08/11/17 10:09 08/11/17 11:00 08/11/17 12:06 08/11/17 13:00 Bedside Glucose 266 mg/dl 247 mg/dl 275 mg/dl 280 mg/dl Test 08/11/17 14:06 08/11/17 15:07 08/11/17 15:31 08/11/17 16:03 Bedside Glucose 186 mg/dl 139 mg/dl 150 mg/dl 153 mg/dl Test 08/11/17 17:09 08/11/17 18:07 08/11/17 20:23 08/12/17 00:12 Bedside Glucose 157 mg/dl 184 mg/dl 170 mg/dl 204 mg/dl Test 08/12/17 04:02 08/12/17 05:56 08/12/17 06:13 Bedside Glucose 245 mg/dl 197 mg/dl White Blood Count 8.52 K/uL Red Blood Count 5.24 M/uL Hemoglobin 14.7 g/dL Hematocrit 42.0 % Mean Corpuscular Volume 80.2 fL Mean Corpuscular Hemoglobin 28.1 pg Mean Corpuscular Hemoglobin Concent 35.0 g/dl RDW Standard Deviation 40.5 fL RDW Coefficient of Variation 14.1 % Platelet Count 251 K/uL Mean Platelet Volume 11.3 fL Sodium Level 134 mmol/L Potassium Level 3.9 mmol/L Chloride Level 104 mmol/L Carbon Dioxide Level 24 mmol/L Anion Gap 6.0 mmol/L Blood Urea Nitrogen 11 mg/dl Creatinine 0.77 mg/dl Est Creatinine Clear Calc Drug Dose 159.7 ml/min Estimated GFR () 126.1 Estimated GFR (Non- 108.8 BUN/Creatinine Ratio 13.7 Random Glucose 231 mg/dl Calcium Level 7.6 mg/dl Phosphorus Level 1.9 mg/dl Magnesium Level 2.0 mg/dl Date/Time Source Procedure Growth Status 08/11/17 12:30 Sputum Expectorated Sputum Gram Stain Pending Received 08/11/17 12:30 Sputum Expectorated Sputum Sputum Culture Pending Received Assessment & Plan 46 year old male with history of Asthma, Allergic Rhinitis, Smoking presenting with weakness, fever and cough. HYPERGLYCEMIA LIKELY HHS, DM 2 NEW DIAGNOSIS - BSGs improving transitioned to SC Insulin Lantus and ISS - monitor - A1c 11.9 - needs DM educator HYPOXIC RESPIRATORY FAILURE SECONDARY TO ASTHMA/COPD EXACERBATION SECONDARY TO ACUTE BRONCHITIS - failed therapy with Doxycycline and Prednisone - repeat CXR: no pneumonia sputum Culture: pending flu negative - improving, off oxygen supplement - continue empiric Zosyn IV Day 3 Nebs q6h Advair added ACUTE RENAL FAILURE, RESOLVED -on IV fluids R/O BACTEREMIA - prelim positive for gram negative bacilli x 1 bottle ff up cultures HYPOPHOSPHATEMIA replace HEPATOMEGALY outpatient ff up ALLERGIC RHINITIS Fluticasone added Afrin ORAL THRUSH Nystatin improving DVT prophylaxis Heparin Disposition pending anticipate d/c home tomorrow Current Inpatient Medications: Current Inpatient Medications Medications (Trade) Dose Ordered Sig/Yang Route Start Time Stop Time Status Last Admin Dose Admin Miscellaneous Information (Consult Glycemic Management Pharmacy) 1 ea UD PRN N/A 08/10/17 12:08 09/09/17 12:07 Glucose (Glucose 40% Gel) 15-30 GRAMS 15 GRAMS... UD PRN PO 08/10/17 12:00 09/09/17 11:59 Glucose (Glucose Chew Tab) 4-8 Tablets 4 Tabl... UD PRN PO 08/10/17 12:00 09/09/17 11:59 Dextrose (Dextrose 50% 50ML Syringe) 25-50ML OF 50% DW IV FOR... UD PRN IV 08/10/17 12:00 09/09/17 11:59 Glucagon (Glucagon Inj) 1 mg UD PRN SQ 08/10/17 12:00 09/09/17 11:59 Albuterol (Ventolin Hfa Inhaler) 2 puffs Q4 PRN INH 08/10/17 12:45 09/09/17 12:44 Epinephrine (Epipen) 0.3 mg UD PRN IM 08/10/17 12:45 09/09/17 12:44 Fluticasone Propionate (Flonase Nasal [place]) 2 sprays DAILY MARYBEL 08/11/17 09:00 09/10/17 08:59 08/12/17 08:04 2 SPRAYS Acetaminophen/ Hydrocodone Bitart ([place] 5/325 Tab) 1 tab BID PRN PO 08/10/17 12:45 08/24/17 12:44 Loratadine (Claritin Tab) 10 mg DAILY PO 08/11/17 09:00 09/10/17 08:59 08/12/17 08:04 10 MG Morphine Sulfate (MoRPHine SULFATE INJ) 1 mg Q4 PRN IV 08/10/17 12:45 08/24/17 12:44 Nystatin (Mycostatin Susp) 5 ml QID PO 08/10/17 13:00 09/09/17 12:59 08/12/17 08:04 5 ML Heparin Sodium (Porcine) (Heparin Sq 5000 Unit/0.5ml) 5,000 unit Q8 SQ 08/10/17 14:00 09/09/17 13:59 08/12/17 05:57 5,000 UNIT Acetaminophen (Tylenol Tab) 650 mg Q4H PRN PO 08/10/17 13:00 09/09/17 12:59 Al Hydrox/Mg Hydrox/Simethicone (Maalox Max Susp) 15 ml Q4H PRN PO 08/10/17 13:00 09/09/17 12:59 Magnesium Hydroxide (Milk Of Magnesia Susp) 30 ml Q12H PRN PO 08/10/17 13:00 09/09/17 12:59 Ondansetron HCl (Zofran Inj) 4 mg Q6H PRN IV 08/10/17 13:00 09/09/17 12:59 Nitroglycerin (Nitrostat Tab) 0.4 mg UD PRN SL 08/10/17 13:00 09/09/17 12:59 Polyethylene (Miralax Powder Packet) 17 gm DAILY PRN PO 08/10/17 13:00 09/09/17 12:59 Piperacillin Sod/ Tazobactam Sod 3.375 gm/Dextrose 115 ml @ 28.75 mls/ hr Q8H IV 08/10/17 22:00 08/20/17 13:59 08/12/17 05:50 28.75 MLS/HR Miscellaneous Information (Consult) 1 ea UD PRN N/A 08/10/17 16:15 09/09/17 16:14 Ipratropium [place] (Atrovent Hfa Inhaler) 2 puffs Q6 INH 08/11/17 13:00 09/10/17 12:59 08/11/17 17:29 2 PUFFS Levalbuterol (Xopenex Hfa Inhaler) 2 puffs Q6 INH 08/11/17 13:00 09/10/17 12:59 08/11/17 17:28 2 PUFFS Insulin Aspart (novoLOG ASPART) SLIDING SCALE ACHS SC 08/11/17 16:15 09/10/17 16:14 08/12/17 08:15 9 UNITS Insulin Glargine (Lantus Solostar Pen) SEE PROTOCOL BID SC 08/11/17 21:00 09/10/17 20:59 08/12/17 08:16 28 UNITS Potassium Chloride/Sodium Chloride 1,000 ml @ 75 mls/hr [id number] IV 08/11/17 13:45 09/10/17 13:44 08/12/17 04:18 75 MLS/HR Potassium/ Phosphorus/Sodium (Phospha 250 Neutral 155-852-130 Mg) 2 tab QID PO 08/11/17 15:00 09/10/17 14:59 08/12/17 08:03 2 TAB Oxymetazoline HCl (Afrin 0.05% Nasal [place]) 2 sprays BID NA 08/11/17 21:00 08/14/17 20:59 08/12/17 08:05 2 SPRAYS Salmeterol Xinafoate/ Fluticasone (Advair Diskus 250/50 Inh) 1 puff BID INH 08/11/17 21:00 09/10/17 20:59 08/12/17 08:07 1 PUFF
[2017-08-12] MEDS: HYDROCODONE/ACETAMOPHEN 5/325MG TAB PO PRN (09:15)
--- NOTE | 2017-08-12 15:06 | Pharmacy Progress Note ---
Pharmacy Glycemic Short Note 2 Date of Service Aug 12, 2017. OUTPATIENT ANTIDIABETIC REGIMEN: * none (no previous diagnosis) ASSESSMENT: * 46 yr old male admitted with severe steroid induced hyperglycemia in the setting of suspected undiagnosed diabetes. Positive family history for DM. Patient complains of respiratory symptoms and was started on prednisone taper, doxycycline and flonase on 08/07. He is currently on Zosyn for possible diverticulitis and GNB 1/2 BC. * IV insulin drip initiated per protocol (HHS goal range utilized initially). Goal range lowered to 110-190 mg/dL this am. Hyperglycemia improving but BSG remains consistently > 250 mg/dL; likely due to D5LR @ 200 mls/hr. Hyponatremia and hydration status improving (corrected Na 135 meq this morning). * Will initiate weight based Lantus in attempt to decrease insulin drip rate and assist in later transition off of insulin drip. * Will utilize set carb ratio of 5 rather than fixed carb ratio calculated by insulin infusion calculator 08/12/17: * Patient was administered a total of 93 units of SQ insulin yesterday ( overlapped with insulin infusion) * Fasting BSG elevated this morning. Patient is currently ordered Lantus per scale. He received 28 units this am. I suspect he will end up needing 20-25 units BID, however it is too early to be certain. Will continue scale for now incase BSGs would start to trend downward. * Prandial BSGs above goal - tighten CF/CR PLAN FOR INPATIENT GLYCEMIC CONTROL: * Basal insulin * Lantus 10-28 units SQ BID * 10 for BSG < 120, 20 for BSG 120-180, 28 for BSG >180 * Bolus insulin * NovoLog per scale ACHS * Goal Range: Low 120 mg/dL - High 150 mg/dL * Correction Factor: 15 mg/dL/unit * Nutritional / Prandial insulin per carb ratio of 1 unit per 5 grams CHO consumed DISCHARGE PLANNING * Patient meets diagnosis for diabetes based on Alc of 11.9% (recent steroid may have contributed to this elevation, although likely not significant since patient was only on steroid for 4 days) * Per ADA 2017 Standards of Care, treatment with combination injectable therapy is recommended for A1c if 10% or greater.
[2017-08-13 03:41] VITALS: BP 136/80; PULSE 70; TEMP 36.9; O2SAT 94
[2017-08-13] MEDS: PIPERACILL/TAZOBAC IV 3.375 GM in DEXTROSE 5% 100ML 100 ML IV SCH ×2 (06:26→13:26)
[2017-08-13] MEDS: IPRATROPIUM BROMIDE HFA INHALER INH SCH ×2 (06:26→12:06)
[2017-08-13] MEDS: LEValbuterol HFA 15GM INHALER INH SCH ×2 (06:26→12:05)
[2017-08-13] MEDS: HEPARIN SOD 5000 UNIT/0.5 ML CARP SQ SCH ×2 (06:28→14:00)
[2017-08-13 07:29] LABS: MEAN CELL VOLUME 80.3 fL (80-100); MEAN CORPUSCULAR HEMOGLOBIN 27.4 pg (25-34); MEAN CORPUSCULAR HGB CONC 34.1 g/dl (32-36); MEAN PLATELET VOLUME 10.6 fL (7.4-10.4); PLATELET COUNT 253 K/uL (130-400); RED CELL DISTRIBUTION WIDTH CV 14.1 % (11.5-14.5); RED CELL DISTRIBUTION WIDTH SD 41.3 fL (36.4-46.3); WHITE BLOOD COUNT 8.81 K/uL (4.8-10.8)
[2017-08-13] MEDS: HYDROCODONE/ACETAMOPHEN 5/325MG TAB PO PRN (07:37)
[2017-08-13 07:45] VITALS: BP 146/84; PULSE 70; TEMP 36.5; O2SAT 93
[2017-08-13 08:03] LABS: CALCIUM 8.4 mg/dl (8.5-10.1); CREATININE 0.73 mg/dl (0.60-1.40); POTASSIUM 3.9 mmol/L (3.5-5.1)
[2017-08-13 08:06] LABS: PHOSPHORUS 2.7 mg/dl (2.5-4.9)
[2017-08-13] MEDS: INSULIN ASPART 100 UNITS/ML 3 ML PEN SC SCH ×2 (08:20→12:04)
[2017-08-13] MEDS: INSULIN GLARGINE SOLOSTAR 100 UNITS/ML 3 ML PEN SC SCH (08:21)
[2017-08-13] MEDS: FLUTICASONE PROPIONATE NA SPR 16 GM BTL NAE SCH (08:30)
[2017-08-13] MEDS: FLUTICASONE/SALMETEROL 250/50 (ADVAIR) 14 PUFF/1 INHALER INH SCH (08:30)
[2017-08-13] MEDS: NYSTATIN SUSP 500,000 U/5 ML UDC PO SCH ×2 (08:31→13:25)
[2017-08-13] MEDS: POT PHOSPHATE MONOBASIC W/ SOD TAB PO SCH ×2 (08:31→13:26)
[2017-08-13] MEDS: LORATADINE 10 MG TAB PO SCH (08:31)
[2017-08-13] MEDS: OXYMETAZOLINE HCL 0.05% NA SPR 15 ML BTL SCH (08:34)
[2017-08-13 11:27] VITALS: BP 112/69; PULSE 82; TEMP 36.7; O2SAT 95
[2017-08-13 11:38] VITALS: O2SAT 95
--- NOTE | 2017-08-13 13:14 | Pharmacy Progress Note ---
Pharmacy Glycemic Short Note 2 Date of Service Aug 13, 2017. OUTPATIENT ANTIDIABETIC REGIMEN: * none (no previous diagnosis) ASSESSMENT: * 46 yr old male admitted with severe steroid induced hyperglycemia in the setting of suspected undiagnosed diabetes. Positive family history for DM. Patient complains of respiratory symptoms and was started on prednisone taper, doxycycline and flonase on 08/07. He is currently on Zosyn for possible diverticulitis and GNB 1/2 BC. * IV insulin drip initiated per protocol (HHS goal range utilized initially). Goal range lowered to 110-190 mg/dL this am. Hyperglycemia improving but BSG remains consistently > 250 mg/dL; likely due to D5LR @ 200 mls/hr. Hyponatremia and hydration status improving (corrected Na 135 meq this morning). * Will initiate weight based Lantus in attempt to decrease insulin drip rate and assist in later transition off of insulin drip. * Will utilize set carb ratio of 5 rather than fixed carb ratio calculated by insulin infusion calculator 08/12/17: * Patient was administered a total of 93 units of SQ insulin yesterday ( overlapped with insulin infusion) * Fasting BSG elevated this morning. Patient is currently ordered Lantus per scale. He received 28 units this am. I suspect he will end up needing 20-25 units BID, however it is too early to be certain. Will continue scale for now incase BSGs would start to trend downward. * Prandial BSGs above goal - tighten CF/CR 08/13/17 * Patient received 92 units of insulin over the past 24 hours with BSG ranging from 150 - 244 mg/dL * Fasting BSG elevated today, however i will not increase basal insulin further (already at weight/stress 3). 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 Meal time BSGs near goal - slightly tighten carb ratio. * Patient is to be discharged today. Discharge recommendations will be based on combination of inpatient needs and usual outpatient insulin initiation dosing. Current dosing is too aggresive to safely be continued as outpatient in the setting of new diagnosis. PLAN FOR INPATIENT GLYCEMIC CONTROL: * Basal insulin * Lantus 10-28 units SQ BID * 10 for BSG < 120, 20 for BSG 120-180, 28 for BSG >180 * Bolus insulin - tighten * NovoLog per scale ACHS * Goal Range: Low 120 mg/dL - High 150 mg/dL * Correction Factor: 15 mg/dL/unit * Nutritional / Prandial insulin per carb ratio of 1 unit per 4 grams CHO consumed DISCHARGE PLANNING * Patient meets diagnosis for diabetes based on Alc of 11.9% (recent steroid may have contributed to this elevation, although likely not significant since patient was only on steroid for 4 days) * Per ADA 2017 Standards of Care, treatment with combination injectable therapy is recommended for A1c if 10% or greater. * I discussed case with Food Service Team Member - patient agreeable to once daily basal insulin + set doses with meals. * Initial doses are conservative - prompt follow up with outpatient provider for adjustment is needed. Insulin Recommendations: Test blood sugar four times each day and keep a record of your blood sugar readings: - when you first awake before eating breakfast - before lunch - before dinner - bedtime 1. Basal insulin - Lantus 22 units SQ once daily in the evening 2. Novolog 5 units SQ administered three times daily with meals. * Administer short acting insulin immediately before a meal (meal should start within 5-10 minutes after injection) * If meal is skipped, do NOT administer insulin * Please give additional Novolog insulin based on blood sugar result (see doses below): If blood sugar is 150 mg/dL or less no additional insulin If blood sugar is 151 - 174 2 units If blood sugar is 175 - 199 3 units If blood sugar is 200 - 224 4 units If blood sugar is 225 - 250 5 units If blood sugar is great than 250 call PCP Thank you.
[2017-08-13] MEDS ORDERED: INSDGIPEN SC (14:56)
[2017-08-13] MEDS ORDERED: NVLGIPEN SC ×2 (14:56→14:57)
[2017-08-13 15:12] VITALS: BP 132/84; PULSE 84; TEMP 36.8; O2SAT 94
--- NOTE | 2017-08-13 15:12 | Progress Note ---
Medicine Progress Note Date & Time of Visit: Aug 13, 2017 at 14:59. Subjective patient seen resting in bed, in good spirits comfortable states he feels better overall ambulating the halls with no problems no dyspnea, no cough no fever/chills no other symptoms states he is ready and would like to be discharged today Objective Last 8 Hrs Date Time Temp Pulse Resp B/P (MAP) Pulse Ox O2 Delivery O2 Flow Rate FiO2 08/13/17 11:38 95 Room Air 08/13/17 11:27 36.7 82 18 112/69 (83) 95 Room Air 08/13/17 08:00 Room Air 08/13/17 07:45 36.5 70 18 146/84 (104) 93 Room Air Physical Exam: General- oriented x 3, not in distress, speaks in sentences with no effort Eyes- anicteric ENT- (+) oral thrush- almost resolved Neck- supple, no JVD Lungs- clear breath sounds bilaterally, no wheezing, no rales Heart- normal rate, regular rhythm; no murmurs Abdomen- normal bowel sounds, soft, nontender Extremities- no pretibial edema, no calf tenderness; peripheral pulses intact Neuro- alert, oriented x 3; no gross focal deficits Skin- warm & dry Laboratory Results: Last 24 Hours Test 08/12/17 16:05 08/12/17 20:06 08/13/17 06:30 08/13/17 07:18 Bedside Glucose 150 mg/dl 206 mg/dl 214 mg/dl White Blood Count 8.81 K/uL Red Blood Count 5.48 M/uL Hemoglobin 15.0 g/dL Hematocrit 44.0 % Mean Corpuscular Volume 80.3 fL Mean Corpuscular Hemoglobin 27.4 pg Mean Corpuscular Hemoglobin Concent 34.1 g/dl RDW Standard Deviation 41.3 fL RDW Coefficient of Variation 14.1 % Platelet Count 253 K/uL Mean Platelet Volume 10.6 fL Sodium Level 135 mmol/L Potassium Level 3.9 mmol/L Chloride Level 104 mmol/L Carbon Dioxide Level 22 mmol/L Anion Gap 9.0 mmol/L Blood Urea Nitrogen 13 mg/dl Creatinine 0.73 mg/dl Est Creatinine Clear Calc Drug Dose 165.9 ml/min Estimated GFR () 128.9 Estimated GFR (Non- 111.2 BUN/Creatinine Ratio 17.6 Random Glucose 229 mg/dl Calcium Level 8.4 mg/dl Phosphorus Level 2.7 mg/dl Magnesium Level 2.1 mg/dl Test 08/13/17 11:17 Bedside Glucose 181 mg/dl Date/Time Source Procedure Growth Status 08/13/17 12:13 Blood Blood Culture Pending Received 08/13/17 12:09 Blood Blood Culture Pending Received Assessment & Plan 46 year old male with history of Asthma, Allergic Rhinitis, Smoking presenting with weakness, fever and cough. HYPERGLYCEMIA LIKELY HHS, DM 2 NEW DIAGNOSIS - taken off Insulin drip, BSGs improving transitioned to SC Insulin Lantus and ISS - A1c 11.9 DM educator consulted - patient comfortable with Insulin administration - discharge plan per Pharmacy Glycemic Consult: Lantus 22 units HS Novolog 5 units with meals Novolog sliding scale with meals - follow up with PCP in 3-5 days HYPOXIC RESPIRATORY FAILURE SECONDARY TO ASTHMA/COPD EXACERBATION SECONDARY TO ACUTE BRONCHITIS - failed therapy with Doxycycline and Prednisone - repeat CXR: no pneumonia sputum Culture: light normal niko - improved overall, off oxygen supplement - received empiric Zosyn IV x 4 days Nebs q6h Advair added - discharge plan: Levaquin 500mg po daily x 3 days Advair daily PRN Albuterol ACUTE RENAL FAILURE, RESOLVED -on IV fluids POSITIVE BLOOD CULTURE X 1 BOTTLE - blood cultures 08/10/17: positive for gram negative bacilli x 1 bottle repeat blood cultures 08/13/17: pending - was receiving Zosyn IV afebrile, no leukocytosis - ff up cultures patient would like to go home today will follow final cultures, discussed with lab, should finalize tomorrow - prelim positive for gram negative bacilli x 1 bottle ff up cultures HYPOPHOSPHATEMIA replaced HEPATOMEGALY outpatient ff up ALLERGIC RHINITIS Fluticasone added Afrin, finished 3 days resolved ORAL THRUSH Nystatin improving continue to complete 7 days DVT prophylaxis Heparin given Disposition d/c home ff up with PCP in 3-5 days Current Inpatient Medications: Current Inpatient Medications Medications (Trade) Dose Ordered Sig/Yang Route Start Time Stop Time Status Last Admin Dose Admin Miscellaneous Information (Consult Glycemic Management Pharmacy) 1 ea UD PRN N/A 08/10/17 12:08 09/09/17 12:07 Glucose (Glucose 40% Gel) 15-30 GRAMS 15 GRAMS... UD PRN PO 08/10/17 12:00 09/09/17 11:59 Glucose (Glucose Chew Tab) 4-8 Tablets 4 Tabl... UD PRN PO 08/10/17 12:00 09/09/17 11:59 Dextrose (Dextrose 50% 50ML Syringe) 25-50ML OF 50% DW IV FOR... UD PRN IV 08/10/17 12:00 09/09/17 11:59 Glucagon (Glucagon Inj) 1 mg UD PRN SQ 08/10/17 12:00 09/09/17 11:59 Albuterol (Ventolin Hfa Inhaler) 2 puffs Q4 PRN INH 08/10/17 12:45 09/09/17 12:44 Epinephrine (Epipen) 0.3 mg UD PRN IM 08/10/17 12:45 09/09/17 12:44 Fluticasone Propionate (Flonase Nasal [place]) 2 sprays DAILY MARYBEL 08/11/17 09:00 09/10/17 08:59 08/13/17 08:30 2 SPRAYS Acetaminophen/ Hydrocodone Bitart ([place] 5/325 Tab) 1 tab BID PRN PO 08/10/17 12:45 08/24/17 12:44 08/13/17 07:37 1 TAB Loratadine (Claritin Tab) 10 mg DAILY PO 08/11/17 09:00 09/10/17 08:59 08/13/17 08:31 10 MG Morphine Sulfate (MoRPHine SULFATE INJ) 1 mg Q4 PRN IV 08/10/17 12:45 08/24/17 12:44 Nystatin (Mycostatin Susp) 5 ml QID PO 08/10/17 13:00 09/09/17 12:59 08/13/17 13:25 5 ML Heparin Sodium (Porcine) (Heparin Sq 5000 Unit/0.5ml) 5,000 unit Q8 SQ 08/10/17 14:00 09/09/17 13:59 08/13/17 06:28 5,000 UNIT Acetaminophen (Tylenol Tab) 650 mg Q4H PRN PO 08/10/17 13:00 09/09/17 12:59 Al Hydrox/Mg Hydrox/Simethicone (Maalox Max Susp) 15 ml Q4H PRN PO 08/10/17 13:00 09/09/17 12:59 Magnesium Hydroxide (Milk Of Magnesia Susp) 30 ml Q12H PRN PO 08/10/17 13:00 09/09/17 12:59 Ondansetron HCl (Zofran Inj) 4 mg Q6H PRN IV 08/10/17 13:00 09/09/17 12:59 Nitroglycerin (Nitrostat Tab) 0.4 mg UD PRN SL 08/10/17 13:00 09/09/17 12:59 Polyethylene (Miralax Powder Packet) 17 gm DAILY PRN PO 08/10/17 13:00 09/09/17 12:59 Piperacillin Sod/ Tazobactam Sod 3.375 gm/Dextrose 115 ml @ 28.75 mls/ hr Q8H IV 08/10/17 22:00 08/20/17 13:59 08/13/17 13:26 28.75 MLS/HR Miscellaneous Information (Consult) 1 ea UD PRN N/A 08/10/17 16:15 09/09/17 16:14 Ipratropium [place] (Atrovent Hfa Inhaler) 2 puffs Q6 INH 08/11/17 13:00 09/10/17 12:59 08/13/17 12:06 2 PUFFS Levalbuterol (Xopenex Hfa Inhaler) 2 puffs Q6 INH 08/11/17 13:00 09/10/17 12:59 08/13/17 12:05 2 PUFFS Insulin Aspart (novoLOG ASPART) SLIDING SCALE ACHS SC 08/11/17 16:15 09/10/17 16:14 08/13/17 12:04 12 UNITS Insulin Glargine (Lantus Solostar Pen) SEE PROTOCOL BID SC 08/11/17 21:00 09/10/17 20:59 08/13/17 08:21 28 UNITS Potassium/ Phosphorus/Sodium (Phospha 250 Neutral 155-852-130 Mg) 2 tab QID PO 08/11/17 15:00 09/10/17 14:59 08/13/17 13:26 2 TAB Oxymetazoline HCl (Afrin 0.05% Nasal [place]) 2 sprays BID NA 08/11/17 21:00 08/14/17 20:59 08/13/17 08:34 2 SPRAYS Salmeterol Xinafoate/ Fluticasone (Advair Diskus 250/50 Inh) 1 puff BID INH 08/11/17 21:00 09/10/17 20:59 08/13/17 08:30 1 PUFF
[2017-08-13] MEDS ORDERED: ASPEC81 PO (15:17)
[2017-08-13] MEDS ORDERED: NYSS5 PO (15:17)
[2017-08-13] MEDS ORDERED: LEVO1TAB34 PO (15:17)
[2017-08-13] MEDS ORDERED: ADVIN25050 INH (15:17)
[2017-08-13 15:22] VITALS: Ht 185.4 cm; Wt 112.1 kg
--- NOTE | 2017-08-13 15:22 | Discharge Instructions ---
Discharge Instructions Date of Service Aug 13, 2017. Admission Reason for Admission: Hypergylcemia, Hypoatremia Discharge Discharge Diagnosis / Problem: DIABETES TYPE 2, ACUTE BRONCHITIS Discharge Goals Goal(s): Diagnostic testing, Therapeutic intervention Activity Recommendations Activity Limitations: as noted below (NO HEAVY EXERTION UNTIL RE-EVALUATED BY PRIMARY CARE PHYSICIAN) Lifting Limitations: until after follow-up appointment Exercise/Sports Limitations: until after follow-up appointment . Instructions / Follow-Up Instructions / Follow-Up PLEASE REFER TO YOUR NEW MEDICATION LIST AND FOLLOW INSTRUCTIONS CAREFULLY. INSULIN RECOMMENDATIONS: Test blood sugar four times each day and keep a record of your blood sugar readings: - when you first awake before eating breakfast - before lunch - before dinner - bedtime 1. Basal insulin - Lantus 22 units SQ once daily in the evening 2. Novolog 5 units SQ administered three times daily with meals. * Administer short acting insulin immediately before a meal (meal should start within 5-10 minutes after injection) * If meal is skipped, do NOT administer insulin * Please give additional Novolog insulin based on blood sugar result (see doses below): If blood sugar is 150 mg/dL or less no additional insulin If blood sugar is 151 - 174 2 units If blood sugar is 175 - 199 3 units If blood sugar is 200 - 224 4 units If blood sugar is 225 - 250 5 units If blood sugar is great than 250 call PCP CALL PRIMARY CARE PHYSICIAN OR RETURN TO ER IMMEDIATELY IF WITH RECURRENCE OF SYMPTOMS, FEVER/CHILLS, WEAKNESS, DIZZINESS, COUGH, SHORTNESS OF BREATH. NO SMOKING, ALCOHOL. FOLLOW UP WITH DR. GANDHI ON 08/15/17 AT 6:10PM. Current Hospital Diet Patient's current hospital diet: Diabetes Type 2 Diet Discharge Diet Recommended Diet: AHA Diet (Heart Healthy), Diabetes Type 2 Diet Pending Studies Studies pending at discharge: no Laboratory Results Hemoglobin A1c Test 08/10/17 12:42 Range/Units Estimated Average Glucose 295 mg/dl Hemoglobin A1c 11.9 H 4.5-5.6 % Medical Emergencies . Who to Call and When: Medical Emergencies: If at any time you feel your situation is an emergency, please call 911 immediately. . Non-Emergent Contact Non-Emergency issues call your: Primary Care Provider Call Non-Emergent contact if: you have a fever, you have any medication questions . . "Provider Documentation" section prepared by Fre Diaz. . VTE Core Measure Inpt VTE Proph given/why not?: Unfractionated heparin SQ
--- NOTE | 2017-08-13 15:30 | Discharge Summary ---
Discharge Summary Date of Service Aug 13, 2017. Discharge Summary Admission Date: Aug 10, 2017 at 11:48 Discharge Date: Aug 13, 2017 Discharge Disposition: Home Principal Diagnosis: HYPERGLYCEMIA LIKELY HHS, DM 2 NEW DIAGNOSIS Secondary Diagnoses/Problems: Please refer to hospital course below. Procedures: CHEST 2 VIEWS ROUTINE HISTORY: Fever. r/o pneumonia COMPARISON: Chest 08/10/2017. FINDINGS: A few bibasilar linear densities consistent with subsegmental atelectasis or scarring. Otherwise, the lungs are clear. No pleural effusions. No pneumothorax. The heart is normal in size. IMPRESSION: No acute process. CT SCAN OF THE ABDOMEN AND PELVIS WITHOUT IV CONTRAST CLINICAL HISTORY: Bilateral flank pain. COMPARISON STUDY: Abdominal CT dated 10/13/2016. TECHNIQUE: CT scan of the abdomen and pelvis is performed from the lung bases to the proximal femora. Images are reviewed in the axial, sagittal, and coronal planes. IV contrast was not administered for this examination as per the referring clinician. Note that the examination was performed in suboptimal fashion without oral and IV contrast. A dose lowering technique was utilized adhering to the principles of ALARA. CT DOSE: 810.19 mGy.cm FINDINGS: Lung bases: The heart is normal in size and without pericardial effusion. There are coronary artery calcifications. The lung bases are clear noting dependent atelectasis. There is a tiny hiatal hernia. Liver: The unenhanced liver is enlarged, measuring 23 cm in length. The liver demonstrates diffusely diminished attenuation consistent with hepatic steatosis. Fatty sparing is seen adjacent to gallbladder fossa. There is no intrahepatic biliary ductal dilatation. Gallbladder: Unremarkable. Spleen: Normal in size and attenuation. Pancreas: Unremarkable. Adrenal glands: Unremarkable. Kidneys: The unenhanced kidneys are normal in size and without hydronephrosis. There are no renal calculi identified. There is no evidence of contour deforming renal mass lesion. Abdominal vasculature: The abdominal aorta is normal in course and caliber noting mild atherosclerotic calcification. Bowel: There is mild colonic diverticulosis. Minimal inflammatory change is seen around a diverticulum in the proximal sigmoid colon in the left pelvis on image #[id number]. Correlate clinically for evidence of minimal acute diverticulitis. There is no evidence of abscess. No bowel obstruction is identified. The appendix is well-visualized and normal. Peritoneum: There is no intraperitoneal free air or abdominal ascites. There is a small fat-containing umbilical hernia. Lymphadenopathy: None. Pelvic viscera: The bladder, prostate, and seminal vesicles are normal as visualized. Skeletal structures: No lytic or blastic lesions are seen. IMPRESSION: 1. Suboptimal examination without oral and IV contrast. 2. Findings suggest faint acute diverticulitis involving the proximal sigmoid colon. Clinical correlation will be required. 3. There is no evidence of intraperitoneal free air or abscess. 4. Hepatomegaly and hepatic steatosis. 5. Additional findings as above. CHEST ONE VIEW PORTABLE CLINICAL HISTORY: Shortness of breath. COMPARISON STUDY: Chest radiograph July 05, 2015. FINDINGS: Lung volumes are normal. Lungs are clear. No pneumothorax or pleural effusion is noted. Pulmonary vascularity is normal. Cardiomediastinal silhouette is unremarkable. The appearance of the chest is unchanged. IMPRESSION: No acute cardiopulmonary findings. Pending Studies/Follow-Up: PLEASE REFER TO HOSPITAL COURSE BELOW. Medication Reconciliation New Medications: Aspirin (Aspirin EC Low Dose) 81 Mg Ectab 1 TAB PO DAILY for 30 Days, #30 TABS always with food Fluticasone Furoate-Vilanterol (Breo Ellipta) 1 Inh Inh 1 PUFF INH DAILY for 30 Days, #1 INHALER 2 Refills Levofloxacin (Levaquin) 500 Mg Tab 500 MG PO DAILY for 3 Days, #3 TAB 0 Refills Insulin Aspart (Novolog Flexpen) 100 Units/Ml Inj 5 UNITS SC TID for 30 Days, #7 UNIT 2 Refills IN ADDITION, CHECK BLOOD SUGAR EVERY MEAL AND ADMINISTER ADDITIONAL INSULIN NOVOLOG NEEDED USING THE SLIDING SCALE: If blood sugar is 150 mg/dL or less no additional insulin If blood sugar is 151 - 174 2 units If blood sugar is 175 - 1993 units If blood sugar is 200 - 2244 units If blood sugar is 225 - 2505 units If blood sugar is great than 250 call PCP Insulin Glargine (Lantus Solostar) 100 Unit/Ml Inj 22 UNITS SC HS for 30 Days, #7 UNITS 2 Refills Nystatin (Nystatin) 5 Ml Susp 5 ML PO QID for 3 Days, #60 ML 0 Refills Continued Medications: Albuterol Hfa (Ventolin Hfa) 200 Puffs/55194 Mcg Aers 2 PUFFS INH Q4 PRN for SOB/Wheezing Epinephrine (Epipen) 0.3 Mg/0.3 Ml Inj 0.3 MG IM UD PRN for ALLERGIC REACTION Fluticasone Propionate (Nasal) (Flonase Allergy Relief) 50 Mcg/Act Spr 2 SPRAYS MARYBEL DAILY Hydrocodone/Acetaminophen 5MG/325MG ([place] 5MG/325MG) Tab 1 TABLET PO BID PRN for Pain, TAB Loratadine (Claritin) 10 Mg Tab 10 MG PO DAILY, TAB Discontinued Medications: Aspirin (Aspirin) 325 Mg Tab 1 TAB PO DAILY Doxycycline Monohydrate (Monodox) 100 Mg Cap 100 MG PO BID Fluticasone Propionate (Flovent Hfa) 120 Puffs/85629 Mcg Aero 2 PUFFS INH BID for 30 Days, #1 INHALER 2 Refills 110mcg Ibuprofen (Ibuprofen) 600 Mg Tab 1 TAB PO Q8 for Pain Prednisone (Prednisone) 5 Mg Tab 0 PO UD, #1 PKT STERAPRED 5MG 12 DAY Admission Information HPI (per Admitting provider): Pt is 46 y/o M with PMH asthma, allergies presented to ER with c/o illness. Pt states has had productive yellow cough x 3 weeks with associated SOB and nasal congestion and sore throat. Also c/o dizziness, blurry vision intermittently with the dizziness x 3 weeks. Dizzy with standing and walking. Also c/o weakness past couple of weeks. Today felt lightheaded when he arrived to ER, no syncope. He was seen by PCP 08/07/17 and was started on doxycycline, prednisone, and flonase. Pt states past 2 days with diffuse body aches and worsening weakness. Using his Albuterol inhaler 2-3 times a day. Reports past 2 days with increased SOB and wheezing. Denies CP. Reports fever past 2 days, this am was 101.9F. Took ibuprofen and is afebrile upon ER arrival. Pt states a couple of weeks ago developed sore mouth, sore throat and tongue and developed white patches. He was using new inhaler ( Arnuity Ellipta). He stopped that and was given clotrimazole lozenges. Pt states white patches resolved, still with sore throat. Reports increased thirst, increased urination and urinating approx every 15 minutes, however states past day hasn't been urinating much. Pt states past 3 weeks with bilateral back and flank pain described as aching. Denies dysuria, hematuria. Reports drinking approx 1 gallon water day. Donovan nauseated the other day, no vomiting. 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 Denies worsening pain. FH DM II - Father. Denies diaphoresis, N/V/D/C, LEONE, CP, orthopnea, palpitations, hemoptysis, choking, otalgia, extremity edema. In ER T: 36.4, Pulse:110-88, R: 20, BP: 136/85, Pulse ox down to 85% on RA. WBC : 12.7. Corrected Na for hyperglycemia was 132. Glucose: 694. K: 4.6. Beta- hydroxybuteric acid: 13.8. anion gap: 10. pending U/A. CXR: negative. EKG: sinus rhythm 85. Pt started on oxy mask pulse ox: 95%. Given DuoNeb, Zofran, morphine, Toradol in ER. Physical Exam (per Admitting): General Appearance: + pertinent finding (overweight, mildly ill appearing, non-toxic appearance) Head: normocephalic, atraumatic Eyes: normal inspection, PERRL, EOMI, sclerae normal ENT: hearing grossly normal, + pharyngeal erythema (no exudate or white patches noted, uvula midline, no trismus) Neck: supple, trachea midline, + adenopathy present (cervical) Respiratory/Chest: chest non-tender, no respiratory distress, no accessory muscle use, + wheezing (expiratory wheezing scattered throughout. Pt on oxygen mask) Cardiovascular: regular rate, rhythm, no edema, no murmur, normal peripheral pulses Abdomen/GI: normal bowel sounds, non tender, soft Back: no CVA tenderness Extremities/Musculoskelatal: no calf tenderness, no pedal edema, normal range of motion, non-tender Neurologic/Psych: alert, normal mood/affect, oriented x 3 Skin: normal color, warm/dry, + pertinent finding (left forearm with cluster of excoriated papules without surrounding erythema or edema) Hospital Course 46 year old male with history of Asthma, Allergic Rhinitis, Smoking presenting with weakness, fever and cough. HYPERGLYCEMIA LIKELY HHS, DM 2 NEW DIAGNOSIS - admitted with BSG 590s - A1c 11.9 - taken off Insulin drip, BSGs improving transitioned to SC Insulin Lantus and ISS DM educator consulted - patient comfortable with Insulin administration - discharge plan per Pharmacy Glycemic Consult: Lantus 22 units HS Novolog 5 units with meals Novolog sliding scale with meals - follow up with PCP in 3-5 days HYPOXIC RESPIRATORY FAILURE SECONDARY TO ASTHMA/COPD EXACERBATION SECONDARY TO ACUTE BRONCHITIS - failed therapy with Doxycycline and Prednisone - repeat CXR: no pneumonia sputum Culture: light normal niko - improved overall, off oxygen supplement - received empiric Zosyn IV x 4 days Nebs q6h Advair added - discharge plan: Levaquin 500mg po daily x 3 days Advair --> Breo Ellipta daily (no pre auth needed) PRN Albuterol ACUTE RENAL FAILURE, RESOLVED -on IV fluids POSITIVE BLOOD CULTURE X 1 BOTTLE- likely CONTAMINATION - blood cultures 08/10/17: positive Acinetobacter lwoffi x 1 bottle only repeat blood cultures 08/13/17: pending - was receiving Zosyn IV afebrile, no leukocytosis - ff up repeat cultures 08/13/17 if positive, will need longer antibiotic course HYPOPHOSPHATEMIA replaced resolved HEPATIC STEATOSIS CORONARY ARTERY CALCIFICATION seen on CT abdomen please see full report above outpatient ff up ALLERGIC RHINITIS Fluticasone added Afrin, finished 3 days resolved ORAL THRUSH Nystatin improving continue to complete 7 days Disposition d/c home ff up with PCP in 3-5 days Total time spent on discharge = 45 minutes This includes examination of the patient, discharge planning, medication reconciliation, and communication with other providers. Discharge Instructions Discharge Instructions Date of Service Aug 13, 2017. Admission Reason for Admission: Hypergylcemia, Hypoatremia Discharge Discharge Diagnosis / Problem: DIABETES TYPE 2, ACUTE BRONCHITIS Discharge Goals Goal(s): Diagnostic testing, Therapeutic intervention Activity Recommendations Activity Limitations: as noted below (NO HEAVY EXERTION UNTIL RE-EVALUATED BY PRIMARY CARE PHYSICIAN) Lifting Limitations: until after follow-up appointment Exercise/Sports Limitations: until after follow-up appointment . Instructions / Follow-Up Instructions / Follow-Up PLEASE REFER TO YOUR NEW MEDICATION LIST AND FOLLOW INSTRUCTIONS CAREFULLY. INSULIN RECOMMENDATIONS: Test blood sugar four times each day and keep a record of your blood sugar readings: - when you first awake before eating breakfast - before lunch - before dinner - bedtime 1. Basal insulin - Lantus 22 units SQ once daily in the evening 2. Novolog 5 units SQ administered three times daily with meals. * Administer short acting insulin immediately before a meal (meal should start within 5-10 minutes after injection) * If meal is skipped, do NOT administer insulin * Please give additional Novolog insulin based on blood sugar result (see doses below): If blood sugar is 150 mg/dL or less no additional insulin If blood sugar is 151 - 174 2 units If blood sugar is 175 - 199 3 units If blood sugar is 200 - 224 4 units If blood sugar is 225 - 250 5 units If blood sugar is great than 250 call PCP CALL PRIMARY CARE PHYSICIAN OR RETURN TO ER IMMEDIATELY IF WITH RECURRENCE OF SYMPTOMS, FEVER/CHILLS, WEAKNESS, DIZZINESS, COUGH, SHORTNESS OF BREATH. NO SMOKING, ALCOHOL. FOLLOW UP WITH DR. GANDHI ON 08/15/17 AT 6:10PM. Current Hospital Diet Patient's current hospital diet: Diabetes Type 2 Diet Discharge Diet Recommended Diet: AHA Diet (Heart Healthy), Diabetes Type 2 Diet Pending Studies Studies pending at discharge: no Laboratory Results Hemoglobin A1c Test 08/10/17 12:42 Range/Units Estimated Average Glucose 295 mg/dl Hemoglobin A1c 11.9 H 4.5-5.6 % Medical Emergencies . Who to Call and When: Medical Emergencies: If at any time you feel your situation is an emergency, please call 911 immediately. . Non-Emergent Contact Non-Emergency issues call your: Primary Care Provider Call Non-Emergent contact if: you have a fever, you have any medication questions . . "Provider Documentation" section prepared by Fer Diaz. . VTE Core Measure Inpt VTE Proph given/why not?: Unfractionated heparin SQ
[2017-08-13 15:44] VITALS: BP 112/69; PULSE 82; TEMP 36.7; O2SAT 95
[2017-08-13] MEDS ORDERED: FLUT1INH INH (15:59)
== END 2017-08-13 19:34 | disposition home or self-care (01) | DRG 637 ==
LOC: C.EDB 08:26 → C.2T 11:48 → ENRESERV 12:02
PROVIDERS: ADMIT Hospitalist; ATTEND Internal Medicine
DX: E11.65 Type 2 diabetes mellitus with hyperglycemia (principal); N17.0 Acute kidney failure with tubular necrosis; J96.01 Acute respiratory failure with hypoxia; E87.1 Hypo-osmolality and hyponatremia; B37.0 Candidal stomatitis; J44.1 Chronic obstructive pulmonary disease with (acute) exacerbation; F41.9 Anxiety disorder, unspecified; J45.909 Unspecified asthma, uncomplicated; F32.9 Major depressive disorder, single episode, unspecified; F17.200 Nicotine dependence, unspecified, uncomplicated; D72.829 Elevated white blood cell count, unspecified; K76.0 Fatty (change of) liver, not elsewhere classified; G89.29 Other chronic pain; M54.2 Cervicalgia; E83.39 Other disorders of phosphorus metabolism; Z96.653 Presence of artificial knee joint, bilateral; Z82.49 Family history of ischemic heart disease and other diseases of the circulatory system; Z83.3 Family history of diabetes mellitus

== ENCOUNTER 2017-09-16 12:29 | Emergency (ER) | payer OTHER ==
[~2017-09-16] VITALS: Ht 185.4 cm; Wt 113.6 kg
[~2017-09-16 12:29] MED LIST changes: -ALBUAER2 INH; +ASPEC81 PO; +CLR10 PO; -CYCL5TAB PO; -DICY10CA12 PO; -FAMO20TA11 PO; +FLUT0.15 NAE; +FLUT1INH INH; +HYDR-5688 PO; -IBUP-1050 PO; +INSDGIPEN SC; +LEVO1TAB34 PO; +NVLGIPEN SC; +NYSS5 PO; -OXYC-57 PO; -OXYC-609 PO; +VNTHFA/IN INH
[2017-09-16 12:38] VITALS: TEMP 36.8; Ht 185.4 cm; Wt 113.6 kg
[2017-09-16] MEDS ORDERED: ONDANSETRON INJ 2 MG/ML 2 ML VIAL IV STA (12:50)
[2017-09-16] MEDS ORDERED: SODIUM CHLORIDE 0.9% 500ML 500 ML IV STA (12:50)
[2017-09-16] MEDS ORDERED: SODIUM CHLORIDE 0.9% 1000ML 1,000 ML IV STA (12:50)
[2017-09-16] MEDS ORDERED: HYDROmorphone INJ 1 MG/ML SYR IV STA ×2 (12:50→14:44)
--- NOTE | 2017-09-16 12:52 | EMERGENCY ROOM VISIT NOTE ---
History Report prepared by Shi: Swetha Jones Under the Supervision of: Dr. Lesly Pak M.D. First contact with patient: 12:44 Chief Complaint: ABDOMINAL PAIN Stated Complaint: EXTREME LOWER ABD PAIN History of Present Illness The patient is a 46 year old male who presents to the Emergency Room with complaints of persistent abdominal pain since last night. He states the pain radiates into his groin and scrotum. He rates his discomfort as a 10/10 in severity. He denies any back pain. Last night he experienced diarrhea and states "pushing to have a bowel movement" worsens his pain. The patient admits to a history of diverticulitis and believes his last colonoscopy was within the past 1 year. He denies any melena or hematochezia. He notes he takes a daily baby Aspirin and was prescribed Metformin this past week. He is still a current smoker but states he has cut back. Source of History: patient Onset: last night Position: abdomen Symptom Intensity: 10/10 Timing: other (persistent) Modifying Factors (Worsening): other (having a bowel movement) Associated Symptoms: + diarrhea, No back pain Review of Systems See HPI for pertinent positives & negatives. A total of 10 systems reviewed and were otherwise negative. 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 (4) Anxiety (5) Asthma (6) Depression (7) Djd Bilateral Knees (8) Knee effusion, right (9) Knee pain (10) Right knee pain (11) Vomiting Surgical Problems: (1) Elbow fracture, right (2) History of bilateral knee replacement (3) History of selective injection of anesthetic agent around lumbar nerve root Family History Diabetes mellitus FH: heart disease Hypertension Social History Smoking Status: Current Every Day Smoker Alcohol Use: none, other Drug Use: none Marital Status: single, in relationship Housing Status: lives with significant other Occupation Status: employed Current/Historical Medications Scheduled Amoxicillin & Pot Clavulanate (Augmentin 875-125 mg), 875 MG PO BID Aspirin (Aspirin Ec), 81 MG PO DAILY Fluticasone Furoate-Vilanterol (Breo Ellipta), 1 PUFF INH DAILY Fluticasone Propionate (Nasal) (Flonase Allergy Relief), 2 SPRAYS MARYBEL DAILY Insulin Aspart (Novolog Flexpen), 5 UNITS SC TID Insulin Glargine (Lantus Solostar), 16 UNITS SC QPM Loratadine (Claritin), 10 MG PO DAILY Metformin Hcl Er (Glucophage Er), 500 MG PO UD Scheduled PRN Albuterol Hfa (Ventolin Hfa), 2 PUFFS INH Q4 PRN for SOB/Wheezing Epinephrine (Epipen), 0.3 MG IM UD PRN for ALLERGIC REACTION Hydrocodone/Acetaminophen 5MG/325MG ([place] 5MG/325MG), 1 TABLET PO BID PRN for Pain Hydrocodone/Acetaminophen 5MG/325MG ([place] 5MG/325MG), 2 TABLETS PO Q6 PRN for Pain Allergies Coded Allergies: Bee Venom (Verified Allergy, Severe, ANAPHYLAXIS, 09/16/17) Reported by PT Physical Exam Vital Signs Date Time Temp Pulse Resp B/P (MAP) Pulse Ox O2 Delivery O2 Flow Rate FiO2 09/16/17 16:18 74 20 136/74 96 09/16/17 15:35 95 20 106/55 96 Room Air 09/16/17 14:07 95 09/16/17 14:06 93 20 120/77 95 Room Air 09/16/17 12:38 36.8 95 18 154/91 97 Room Air Physical Exam Vital signs reviewed. General: Well-appearing 46 year old male, in no significant distress. HEENT: No scleral icterus, PERRLA, neck supple. Atraumatic. Cardiovascular: Regular rate and rhythm, no extra sounds. Pulmonary: Clear to auscultation bilaterally, normal work of breathing. Abdomen: Soft, tender to palpation in the LLQ, nondistended, positive bowel sounds. Musculoskeletal: Atraumatic, no peripheral edema. Neurologic: Patient awake alert and oriented x 3, full strength in all 4 extremities. Cranial nerves 2 through 12 grossly intact. Skin: Warm, dry, no rash Medical Decision & Procedures ER Provider Diagnostic Interpretation: Radiology results as stated below per my review and radiologist interpretation: CT SCAN OF THE ABDOMEN AND PELVIS WITH IV CONTRAST CLINICAL HISTORY: Left lower quadrant abdominal pain. COMPARISON STUDY: Abdominal CT dated 08/10/2017. TECHNIQUE: Following the IV administration of 121 cc of Optiray 320, CT scan of the abdomen and pelvis is performed from the lung bases to the proximal femora. Images are reviewed in the axial, sagittal, and coronal planes. IV contrast was administered without complication. A dose lowering technique was utilized adhering to the principles of ALARA. CT DOSE: 1008.65 mGy.cm FINDINGS: Lung bases: The heart is normal in size and without pericardial effusion. The lung bases are clear. There is a small hiatal hernia. Liver: The contrast-enhanced liver is enlarged, measuring 21.9 cm in length. The liver demonstrates diffusely imaged attenuation consistent with hepatic steatosis. There is no intrahepatic biliary ductal dilatation. The hepatic veins and portal veins are patent. Gallbladder: Unremarkable. Spleen: Spleen is mildly enlarged measuring 13.7 cm in length. Pancreas: Unremarkable. Adrenal glands: Unremarkable. Kidneys: The contrast enhanced kidneys are normal in size and without hydronephrosis. The kidneys enhance symmetrically. Abdominal vasculature: The abdominal aorta is normal in course and caliber noting mild atherosclerotic calcification. Bowel: There is mild to moderate diverticulosis of the left colon. There is wall thickening with pericolonic inflammation and trace fluid involving the proximal sigmoid colon consistent with acute diverticulitis. There is no evidence of diverticular abscess. No bowel obstruction is seen. The appendix is well-visualized and normal. Peritoneum: There are numerous small foci of intraperitoneal free air. No abdominal ascites is seen. Lymphadenopathy: None. Pelvic viscera: The bladder, prostate, and seminal vesicles are normal as visualized. Surgical clips are noted along the spermatic cord bilaterally. Skeletal structures: No lytic or blastic lesions are seen. IMPRESSION: 1. Findings are consistent with acute diverticulitis of the sigmoid colon. There is no evidence of diverticular abscess. 2. Numerous small foci of intraperitoneal free air indicate perforation. 3. Hepatomegaly and hepatic steatosis. 4. Mild splenomegaly. 5. Additional findings as above. Electronically signed by: Juan Santana M.D. 09/16/2017 2:46 PM Laboratory Results 09/16/17 13:15 Red Blood Count 5.92, Mean Corpuscular Volume 82.9, Mean Corpuscular Hemoglobin 27.2, Mean Corpuscular Hemoglobin Concent 32.8, Mean Platelet Volume 10.1, Neutrophils (%) (Auto) 77.8, Lymphocytes (%) (Auto) 14.5, Monocytes (%) (Auto) 5.9, Eosinophils (%) (Auto) 1.4, Basophils (%) (Auto) 0.1, Neutrophils # (Auto) 13.96, Lymphocytes # (Auto) 2.60, Monocytes # (Auto) 1.05, Eosinophils # (Auto) 0.25, Basophils # (Auto) 0.02 09/16/17 13:15 Test 09/16/17 13:15 White Blood Count 17.94 K/uL (4.8-10.8) Red Blood Count 5.92 M/uL (4.7-6.1) Hemoglobin 16.1 g/dL (14.0-18.0) Hematocrit 49.1 % (42-52) Mean Corpuscular Volume 82.9 fL (80-100) Mean Corpuscular Hemoglobin 27.2 pg (25-34) Mean Corpuscular Hemoglobin Concent 32.8 g/dl (32-36) Platelet Count 317 K/uL (130-400) Mean Platelet Volume 10.1 fL (7.4-10.4) Neutrophils (%) (Auto) 77.8 % Lymphocytes (%) (Auto) 14.5 % Monocytes (%) (Auto) 5.9 % Eosinophils (%) (Auto) 1.4 % Basophils (%) (Auto) 0.1 % Neutrophils # (Auto) 13.96 K/uL (1.4-6.5) Lymphocytes # (Auto) 2.60 K/uL (1.2-3.4) Monocytes # (Auto) 1.05 K/uL (0.11-0.59) Eosinophils # (Auto) 0.25 K/uL (0-0.5) Basophils # (Auto) 0.02 K/uL (0-0.2) RDW Standard Deviation 45.3 fL (36.4-46.3) RDW Coefficient of Variation 14.9 % (11.5-14.5) Immature Granulocyte % (Auto) 0.3 % Immature Granulocyte # (Auto) 0.06 K/uL (0.00-0.02) Anion Gap 8.0 mmol/L (3-11) Est Creatinine Clear Calc Drug Dose 138.5 ml/min Estimated GFR () 119.4 Estimated GFR (Non- 103.0 BUN/Creatinine Ratio 17.5 (10-20) Calcium Level 8.6 mg/dl (8.5-10.1) Total Bilirubin 0.4 mg/dl (0.2-1) Direct Bilirubin < 0.1 mg/dl (0-0.2) Aspartate Amino Transf (AST/SGOT) 20 U/L (15-37) Alanine Aminotransferase (ALT/SGPT) 36 U/L (12-78) Alkaline Phosphatase 75 U/L (45-117) Total Protein 7.7 gm/dl (6.4-8.2) Albumin 3.9 gm/dl (3.4-5.0) Lipase 73 U/L (73-393) Laboratory results per my review. Medications Administered Medications (Trade) Dose Ordered Sig/Yang Route Start Time Stop Time Status Last Admin Dose Admin Sodium Chloride 500 ml @ 999 mls/hr Q31M STAT IV 09/16/17 12:50 09/16/17 13:20 DC 09/16/17 13:19 999 MLS/HR Sodium Chloride 1,000 ml @ 150 mls/hr Q6H40M STAT IV 09/16/17 12:50 09/16/17 17:08 DC 09/16/17 13:19 150 MLS/HR Hydromorphone HCl (Dilaudid Inj) 1 mg NOW STAT IV 09/16/17 12:50 09/16/17 12:53 DC 09/16/17 13:18 1 MG Ondansetron HCl (Zofran Inj) 4 mg NOW STAT IV 09/16/17 12:50 09/16/17 12:53 DC 09/16/17 13:19 4 MG Hydromorphone HCl (Dilaudid Inj) 1 mg NOW STAT IV 09/16/17 14:44 09/16/17 14:46 DC 09/16/17 15:25 1 MG Ampicillin Sodium/ Sulbactam Sodium 3000 mg/Sodium Chloride 108 ml @ 200 mls/hr ONE ONCE IV 09/16/17 14:45 09/16/17 15:17 DC 09/16/17 15:25 200 MLS/HR Acetaminophen/ Hydrocodone Bitart ([place] 5/325mg Home Pack) 1 homepack UD ONCE PO 09/16/17 15:00 09/16/17 15:01 DC 09/16/17 16:13 1 HOMEPACK Amoxicillin/ Clavulanate Potassium (Augmentin 875MG Home Pack) 1 homepack UD ONCE PO 09/16/17 15:00 09/16/17 15:01 DC 09/16/17 16:13 1 HOMEPACK ED Course 1248: Past medical records reviewed. The patient was evaluated in room B10. A complete history and physical examination was performed. 1250: Zofran 4 mg IV, Dilaudid 1 mg IV, NSS 1000 ml @ 150 mls/hr IV, NSS 500 ml @ 999 mls/hr IV. 1444: Dilaudid 1 mg IV. 1445: Ampicillin Sodium/Sulbactam Sodium 3000 mg/NSS 108 ml @ 200 mls/hr IV. 1500: Augmentin 875 mg 1 homepack PO, [place] 5/325 mg 1 homepack PO. 1500: I reevaluated the patient. He is feeling well and resting. I discussed his results and discharge instructions and he verbalized complete understanding and agreement. Medical Decision Differential diagnosis: Etiologies such as appendicitis, diverticulitis, PUD, biliary pathology, UTI, pancreatitis, obstruction, mesenteric ischemia, aortic pathology, infections, inflammatory bowel disease, renal colic, as well as others were entertained. This patient was evaluated and appeared to be in no significant distress. IV access was obtained and laboratory work was drawn. The patient was placed on the street commissioner and found to be in a normal sinus rhythm. He was hydrated with normal saline solution and treated with IV Dilaudid and Zofran for his discomforts. Patient is found to have a mild leukocytosis. CT scan abdomen and pelvis reveals evidence of diverticulitis without abscess or perforation of viscus. He was treated with IV Unasyn and discharged on by mouth Augmentin. Patient was also given a [place] home pack and a short prescription for pain management. He will follow-up with his physician for further management this week. He may need a GI referral. He will return to the ER for worsening of symptoms or any medical concerns. Medication Reconcilliation Current Medication List: was personally reviewed by me Blood Pressure Screening Patient's blood pressure: Elevated blood pressure Blood pressure disposition: Elevated BP felt to be situational Impression Primary Impression: Diverticulitis Scribe Attestation The scribe's documentation has been prepared under my direction and personally reviewed by me in its entirety. I confirm that the note above accurately reflects all work, treatment, procedures, and medical decision making performed by me. Departure Information Dispostion Home / Self-Care Prescriptions Hydrocodone/Acetaminophen 5MG/325MG ([place] 5MG/325MG) Tab 2 TABLETS PO Q6 Y for Pain, #30 TAB Prov: Lesly Pak M.D. 09/16/17 Amoxicillin & Pot Clavulanate (Augmentin 875-125 mg) 1 Tab Tab 875 MG PO BID for 10 Days, TAB Prov: Lesly Pak M.D. 09/16/17 Referrals Joe Metzger M.D. (PCP) Patient Instructions [facility] Additional Instructions Diagnosis: Diverticulitis Please drink plenty of clear fluids. Maintain a bland diet, low fiber until symptoms resolve. Augmentin 875 mg twice daily for 10 days. [place] one to 2 tabs every 6 hours as needed for severe pain. Do not drive or take Tylenol with this medication. Follow-up with your physician within the next 2-3 days for reevaluation. Return to the emergency department for fevers, increased pain or any medical concerns.
[2017-09-16] MEDS ORDERED: OPTIRAY 320 IV PRN (13:00)
[2017-09-16] MEDS ORDERED: METF500T5 PO (13:47)
[2017-09-16] MEDS ORDERED: INSDGIPEN SC (13:47)
[2017-09-16] MEDS ORDERED: ASPI81TA28 PO (13:48)
[2017-09-16 13:51] LABS: BASO % 0.1 %; BASO ABS # 0.02 K/uL (0-0.2); EOS % 1.4 %; EOS ABS # 0.25 K/uL (0-0.5); HEMATOCRIT 49.1 % (42-52); HEMOGLOBIN 16.1 g/dL (14.0-18.0); IG# 0.06 K/uL (0.00-0.02); LYMPH % 14.5 %; MEAN CELL VOLUME 82.9 fL (80-100); MEAN CORPUSCULAR HEMOGLOBIN 27.2 pg (25-34); MEAN CORPUSCULAR HGB CONC 32.8 g/dl (32-36); MEAN PLATELET VOLUME 10.1 fL (7.4-10.4); MONO % 5.9 %; MONO ABS # 1.05 K/uL (0.11-0.59); NEUT % 77.8 %; NEUT ABS # 13.96 K/uL (1.4-6.5); PLATELET COUNT 317 K/uL (130-400); RED CELL DISTRIBUTION WIDTH CV 14.9 % (11.5-14.5); RED CELL DISTRIBUTION WIDTH SD 45.3 fL (36.4-46.3); WHITE BLOOD COUNT 17.94 K/uL (4.8-10.8)
[2017-09-16 14:02] LABS: ALBUMIN 3.9 gm/dl (3.4-5.0); ALT/SGPT 36 U/L (12-78); AST/SGOT 20 U/L (15-37); BLOOD UREA NITROGEN 15 mg/dl (7-18); CALCIUM 8.6 mg/dl (8.5-10.1); CARBON DIOXIDE 26 mmol/L (21-32); CREATININE 0.88 mg/dl (0.60-1.40); GLUCOSE 89 mg/dl (70-99); LIPASE 73 U/L (73-393); SODIUM 138 mmol/L (136-145)
[2017-09-16 14:05] LABS: ALKALINE PHOSPHATASE 75 U/L (45-117); TOTAL PROTEIN 7.7 gm/dl (6.4-8.2)
[2017-09-16] MEDS ORDERED: AMPICILLIN/SULBACTAM SOD INJ 3,000 MG in SODIUM CHLORIDE 0.9% 100ML 100 ML IV ONE (14:45)
--- NOTE | 2017-09-16 14:48 | DIAGNOSTIC IMAGING REPORT ---
CT SCAN OF THE ABDOMEN AND PELVIS WITH IV CONTRAST CLINICAL HISTORY: Left lower quadrant abdominal pain. COMPARISON STUDY: Abdominal CT dated 08/10/2017. TECHNIQUE: Following the IV administration of 121 cc of Optiray 320, CT scan of the abdomen and pelvis is performed from the lung bases to the proximal femora. Images are reviewed in the axial, sagittal, and coronal planes. IV contrast was administered without complication. A dose lowering technique was utilized adhering to the principles of ALARA. CT DOSE: 1008.65 mGy.cm FINDINGS: Lung bases: The heart is normal in size and without pericardial effusion. The lung bases are clear. There is a small hiatal hernia. Liver: The contrast-enhanced liver is enlarged, measuring 21.9 cm in length. The liver demonstrates diffusely imaged attenuation consistent with hepatic steatosis. There is no intrahepatic biliary ductal dilatation. The hepatic veins and portal veins are patent. Gallbladder: Unremarkable. Spleen: Spleen is mildly enlarged measuring 13.7 cm in length. Pancreas: Unremarkable. Adrenal glands: Unremarkable. Kidneys: The contrast enhanced kidneys are normal in size and without hydronephrosis. The kidneys enhance symmetrically. Abdominal vasculature: The abdominal aorta is normal in course and caliber noting mild atherosclerotic calcification. Bowel: There is mild to moderate diverticulosis of the left colon. There is wall thickening with pericolonic inflammation and trace fluid involving the proximal sigmoid colon consistent with acute diverticulitis. There is no evidence of diverticular abscess. No bowel obstruction is seen. The appendix is well-visualized and normal. Peritoneum: There are numerous small foci of intraperitoneal free air. No abdominal ascites is seen. Lymphadenopathy: None. Pelvic viscera: The bladder, prostate, and seminal vesicles are normal as visualized. Surgical clips are noted along the spermatic cord bilaterally. Skeletal structures: No lytic or blastic lesions are seen. IMPRESSION: 1. Findings are consistent with acute diverticulitis of the sigmoid colon. There is no evidence of diverticular abscess. 2. Numerous small foci of intraperitoneal free air indicate perforation. 3. Hepatomegaly and hepatic steatosis. 4. Mild splenomegaly. 5. Additional findings as above. Electronically signed by: Juan Sanatna M.D. 09/16/2017 2:46 PM Dictated Date/Time: 09/16/2017 2:39 PM
[2017-09-16] MEDS ORDERED: AMOX875T PO (14:53)
[2017-09-16] MEDS ORDERED: HYDR-5688 PO (14:53)
[2017-09-16] MEDS ORDERED: NORCO 5/325MG HOME PACK PO ONE (15:00)
[2017-09-16] MEDS ORDERED: AMOXICIL/CLAVU 875MG HOME PACK PO ONE (15:00)
[2017-09-16 16:18] VITALS: BP 136/74; PULSE 74; O2SAT 96
== END 2017-09-16 16:22 | disposition home or self-care (01) ==
LOC: C.EDB 12:29
DX: K57.32 Diverticulitis of large intestine without perforation or abscess without bleeding (principal); F41.9 Anxiety disorder, unspecified; J45.909 Unspecified asthma, uncomplicated; F32.9 Major depressive disorder, single episode, unspecified; M17.0 Bilateral primary osteoarthritis of knee; Z83.3 Family history of diabetes mellitus; Z82.49 Family history of ischemic heart disease and other diseases of the circulatory system; F17.210 Nicotine dependence, cigarettes, uncomplicated; Z79.82 Long term (current) use of aspirin; Z79.4 Long term (current) use of insulin; Z79.899 Other long term (current) drug therapy; Z91.030 Bee allergy status

== ENCOUNTER 2019-05-16 12:11 | Inpatient (IN) ==
[2019-05-16 13:13] LABS: Basophils # (auto) 0.05 K/uL (0-0.2); Basophils % (auto) 0.5 %; Eosinophils # (auto) 0.04 K/uL (0-0.5); Eosinophils % (auto) 0.4 %; Hematocrit (blood only) 43.2 % (42-52); Hemoglobin 14.5 g/dL (14.0-18.0); Immature Granulocytes # (auto) 0.01 K/uL (0.00-0.02); Immature Granulocytes % (auto) 0.1 %; Lymphocytes # (auto) 1.63 K/uL (1.2-3.4); Lymphocytes % (auto) 15.5 %; Mean Corpuscular Hgb Conc 33.6 g/dL (32-36); Mean Corpuscular Volume 83.4 fL (80-100); Mean Platelet Volume 9.9 fL (7.4-10.4); Monocytes # (auto) 0.85 K/uL (0.11-0.59); Monocytes % (auto) 8.1 %; Neutrophils # (auto) 7.92 K/uL (1.4-6.5); Neutrophils % (auto) 75.4 %; Platelet Count 215 K/uL (130-400); RDW Coefficient of Variation 14.9 % (11.5-14.5); RDW Standard Deviation 45.7 fL (36.4-46.3); Red Blood Count 5.18 M/uL (4.7-6.1)
[2019-05-16 13:30] LABS: Alanine Aminotransferase 33 U/L (12-78); Albumin Level 3.9 gm/dl (3.4-5.0); Aspartate Aminotransferase 25 U/L (15-37); Blood Urea Nitrogen 13 mg/dl (7-18); Calcium 8.6 mg/dl (8.5-10.1); Carbon Dioxide 25 mmol/L (21-32); Chloride 103 mmol/L (98-107); Creatinine Clr Calc Pharmacy 114.4 ml/min; Est GFR (African American) 99.1; Est GFR (Non-African American) 85.5; Glucose 115 mg/dl (70-99); Lipase 34 U/L (73-393); Magnesium 1.9 mg/dl (1.8-2.4); Potassium 3.7 mmol/L (3.5-5.1); Sodium 136 mmol/L (136-145)
[2019-05-16] MEDS ORDERED: ALBUT/IPRATROP 3MG/0.5MG NEB 3 ML VIAL NEB STA ×3 (13:30→17:10)
[2019-05-16 13:32] LABS: D Dimer 540 ug/L FEU (0-500)
[2019-05-16 13:41] LABS: Albumin Globulin Ratio 1.1 (0.9-2); Alkaline Phosphatase 79 U/L (45-117); Bilirubin,Total 0.6 mg/dl (0.2-1); Globulin 3.7 gm/dl (2.5-4.0); NT Pro B Type Natriuretic Pept 24 pg/ml (0-450); Thyroid Stimulating Hormone 0.239 uIu/ml (0.300-4.500); Total Protein 7.6 gm/dl (6.4-8.2); Troponin I < 0.015 ng/ml (0-0.045)
--- NOTE | 2019-05-16 13:45 | XRay Report ---
XR chest 1V portable CLINICAL HISTORY: chest pain disc COMPARISON STUDY: 09/10/2018 FINDINGS: The bones soft tissues and hemidiaphragms are normal. The cardiomediastinal silhouette is n ormal. The lungs are clear. The pulmonary vasculature is normal. IMPRESSION: Negative chest. The above report was generated using voice recognition software. It may contain grammatical, syntax or spelling errors. Electronically signed by: Joe Nunez M.D. 05/16/2019 1:44 PM
[2019-05-16] MEDS ORDERED: OPTIRAY 320 125ml IV PRN (14:20)
--- NOTE | 2019-05-16 14:41 | CT Scan Report ---
CT angio chest PE protocol CT DOSE: 780.05 mGy.cm HISTORY: 48 years-old Male with PE. Acute chest pain with cough TECHNIQUE: Multiple CTA images of the chest were obtained after the intravenous administration of 119 ml Optiray 320. Coronal and sagittal MIPS were obtained from the axial data set and were submitted for review. All measurements were obtained according to NASCET criteria. A dose lowering technique w as utilized adhering to the principles of ALARA. COMPARISON: Chest radiograph 05/16/2019, CT abdomen and pelvis 09/10/2018 FINDINGS: CTA: Heart is normal in size without pericardial effusion. No thoracic aortic aneurysm or dissection. Ther e is patency of the imaged great vessels. The pulmonary arterial tree is opacified to the level of th e proximal segmental branches. Respiratory motion artifact limits evaluation of the lung bases. No fo bogdan filling defects identified to suggest pulmonary thromboembolic disease. CT CHEST: Unremarkable thyroid. Prominent paratracheal lymph nodes measure up to 9 mm. Mildly enlarged bilatera l hilar lymph nodes measure up to 2.3 x 1.2 cm on the left. There is no pneumothorax or pleural effus ion. Mild bilateral bronchial wall thickening. 7 x 5 mm solid nodule of the right upper lobe, image 1 55 series 4. There are 2 additional tiny solid nodules just inferior to this measuring up to 3 mm. Br onchovascular distribution of left perihilar groundglass and nodular opacities are seen greatest in t he left. No lobar airspace consolidation. Respiratory motion artifact limits evaluation of the lung p arenchyma. Mild multifocal mucus plugging. No acute process of the imaged upper abdomen. Soft tissues are unremarkable. Degenerative changes of the shoulders and spine. IMPRESSION: 1. No evidence of pulmonary thromboembolic disease. 2. Bilateral bronchial wall thickening with left greater than right perihilar groundglass and nodular opacities suggestive of associated bronchopneumonia. This includes a 7 mm right perihilar nodular op acity of the right upper lobe. Follow-up imaging after treatment course recommended to document resol ution. 3. Mild mediastinal and hilar adenopathy, likely reactive. The above report was generated using voice recognition software. It may contain grammatical, syntax o r spelling errors. Electronically signed by: David Feliz M.D. 05/16/2019 2:39 PM
[2019-05-16] MEDS ORDERED: LEVOFLOXACIN/D5W 750 MG/150 ML BAG IV STA (14:47)
[2019-05-16] MEDS ORDERED: DEXAMETHASONE SOD INJ 4 MG/ML VIAL IV STA (14:47)
[2019-05-16] MEDS ORDERED: ACETAMINOPHEN 1,000 MG/100 ML VIAL IV STA (15:04)
[2019-05-16] MEDS ORDERED: KETOROLAC TROMETHAMINE 15 MG/ML VIAL IV STA (15:32)
[2019-05-16] MEDS ORDERED: SODIUM CHLORIDE 0.9% 1000ML 1,000 ML IV ONE (15:32)
--- NOTE | 2019-05-16 16:37 | Emergency Department Note ---
Entered by Brayan Israel acting as a scribe for Batool Hay DO History of Present Illness General Chief complaint: Chest Pain Stated complaint: CHEST PAIN,SOB Time Seen by Provider: 05/16/19 12:39 Source: patient History of Present Illness Provider complaint: Chest pain Onset (ago): day(s) 5 Location: chest Pain Consistency: + constant Maximum Pain Intensity: 8 Current Pain Intensity: 8 Quality: + aching Relieved By: + none Exacerbated By: + other (Cough) Associated symptoms: + cough, + headaches, + loss of appetite and + shortness of breath The patient is a 48 year old male who presents to the Emergency Room with complaints of constant chest pain that started about 5 days ago. The patient rates the pain as an 8/10 and notes it is constantly achy but when he coughs it becomes much worse. The patient also endorses a headache that is severely worse when he coughs. The patient notes the cough is productive with mucous. The patient also has some shortness of breath, stating it feels as though he can not get a full breath. The patient reports that he finally decided to come to the ED because this morning while he was driving he became near syncopal. The patient has not had an appetite since the onset of his symptoms causing him to not move his bowels as much. The patient is a smoker and has a history of asthma and pn eumonia. The patient also has a history of diabetes and his sugars have been stable. 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 Home Medications Home Medications Medication Instructions Recorded Confirmed Type albuterol sulfate 2 puff INHALATION Q4H PRN 09/10/18 05/16/19 History aspirin 81 mg PO DAILY 09/10/18 05/16/19 History atorvastatin [Lipitor] 20 mg PO HS 09/10/18 05/16/19 History epinephrine [EpiPen] 0.3 mg IM Q3H PRN 09/10/18 05/16/19 History fluticasone furoate-vilanterol 1 inh INHALATION DAILY 09/10/18 05/16/19 History [Breo Ellipta] fluticasone propionate [Flonase 2 spray INTRANASAL DAILY 09/10/18 05/16/19 History Allergy Relief] hydrocodone-acetaminophen [Seney] 1 tab PO BID PRN 09/10/18 05/16/19 History loratadine [Claritin] 10 mg PO DAILY 09/10/18 05/16/19 History metformin 1,000 mg PO BID 05/16/19 05/16/19 History semaglutide [Ozempic] 0.25 mg SUBCUT WK 05/16/19 05/16/19 History Allergies Allergy/AdvReac Type Severity Reaction Status Date / Time bee venom protein (honey bee) Allergy Severe ANAPHYLAXIS Verified 05/16/19 14:25 Past Med/Surg History Medical History Abnormal CT scan, chest (Acute) Acute gastritis No significant family history No significant medical problems No significant past surgical history Family History Other No pertinent family history in first degree relatives Social History Preferred Language: [place] Communication Ability: Effective Beliefs That Will Affect Care: None Current Living Situation: Other Current Living Situation Comment: [facility] Other Information That Helps Us Care for You: No Feels Safe at Home: Yes Safety Concerns: Feels Safe At This Time Smoking Status: Current every day smoker Tobacco Type: cigarettes ; Cigarettes Per Day: 10 ; Hx Alcohol Use: No Hx Substance Use: No Review of Systems See HPI for pertinent positives & negatives. and A total of 10 systems reviewed and were otherwise negative Physical Exam Vital Signs Vital Signs - 24 hr 05/16/19 12:12 05/16/19 12:37 05/16/19 12:38 Temperature 99.3 F Temperature Source Oral Sepsis Recent Fever Within 48 Hours No Sepsis New/Unexplained Change in Mental Status No Sepsis Action Taken by Nursing No Action Required Pulse Rate 104 H Pulse Rate [Exercises] Pulse Rate [Left Finger] Pulse Rate [Recovery] Pulse Rate [Resting] Pulse Rate from SpO2 Sensor Respiratory Rate 20 Respiratory Rate [Exercises] Respiratory Rate [Recovery] Respiratory Rate [Resting] Respiratory Effort / Characteristics Non-Labored Spontaneous Respiratory Depth Normal Blood Pressure 141/72 H Blood Pressure Mean 95 Pulse Oximetry 93 98 Pulse Oximetry [Exercises] Pulse Oximetry [Recovery] Pulse Oximetry [Resting] Oxygen Delivery Method Room Air Room Air Room Air 05/16/19 12:45 05/16/19 13:00 05/16/19 13:30 Temperature Temperature Source Sepsis Recent Fever Within 48 Hours Sepsis New/Unexplained Change in Mental Status Sepsis Action Taken by Nursing Pulse Rate 93 H 98 H 96 H Pulse Rate [Exercises] Pulse Rate [Left Finger] Pulse Rate [Recovery] Pulse Rate [Resting] Pulse Rate from SpO2 Sensor 97 H 99 H Respiratory Rate 34 H 13 16 Respiratory Rate [Exercises] Respiratory Rate [Recovery] Respiratory Rate [Resting] Respiratory Effort / Characteristics Respiratory Depth Blood Pressure Blood Pressure Mean Pulse Oximetry 93 94 Pulse Oximetry [Exercises] Pulse Oximetry [Recovery] Pulse Oximetry [Resting] Oxygen Delivery Method 05/16/19 13:40 05/16/19 14:00 05/16/19 14:09 Temperature Temperature Source Sepsis Recent Fever Within 48 Hours Sepsis New/Unexplained Change in Mental Status Sepsis Action Taken by Nursing Pulse Rate 101 H 104 H Pulse Rate [Exercises] Pulse Rate [Left Finger] 94 H Pulse Rate [Recovery] Pulse Rate [Resting] Pulse Rate from SpO2 Sensor Respiratory Rate 14 12 22 Respiratory Rate [Exercises] Respiratory Rate [Recovery] Respiratory Rate [Resting] Respiratory Effort / Characteristics Non-Labored Spontaneous Respiratory Depth Blood Pressure 127/69 Blood Pressure Mean 88 Pulse Oximetry 94 Pulse Oximetry [Exercises] Pulse Oximetry [Recovery] Pulse Oximetry [Resting] Oxygen Delivery Method Room Air 05/16/19 14:30 05/16/19 15:00 05/16/19 15:30 Temperature Temperature Source Sepsis Recent Fever Within 48 Hours Sepsis New/Unexplained Change in Mental Status Sepsis Action Taken by Nursing Pulse Rate 99 H 101 H 104 H Pulse Rate [Exercises] Pulse Rate [Left Finger] Pulse Rate [Recovery] Pulse Rate [Resting] Pulse Rate from SpO2 Sensor 95 H 107 H 100 H Respiratory Rate 18 13 13 Respiratory Rate [Exercises] Respiratory Rate [Recovery] Respiratory Rate [Resting] Respiratory Effort / Characteristics Respiratory Depth Blood Pressure 114/68 139/84 98/60 L Blood Pressure Mean 83 102 72 Pulse Oximetry 95 97 96 Pulse Oximetry [Exercises] Pulse Oximetry [Recovery] Pulse Oximetry [Resting] Oxygen Delivery Method 05/16/19 16:16 05/16/19 16:39 Temperature Temperature Source Sepsis Recent Fever Within 48 Hours Sepsis New/Unexplained Change in Mental Status Sepsis Action Taken by Nursing Pulse Rate Pulse Rate [Exercises] 107 H Pulse Rate [Left Finger] 92 H Pulse Rate [Recovery] 94 H Pulse Rate [Resting] 91 H Pulse Rate from SpO2 Sensor Respiratory Rate 16 Respiratory Rate [Exercises] 28 H Respiratory Rate [Recovery] 26 H Respiratory Rate [Resting] 24 Respiratory Effort / Characteristics Non-Labored Spontaneous Respiratory Depth Blood Pressure Blood Pressure Mean Pulse Oximetry 95 Pulse Oximetry [Exercises] 84 L Pulse Oximetry [Recovery] 92 Pulse Oximetry [Resting] 95 Oxygen Delivery Method Room Air Room Air GENERAL: alert, ill appearing, well nourished, no distress, non-toxic EYE EXAM: normal conjunctiva, PERRL and EOM's grossly intact OROPHARYNX: no exudate, no erythema, lips, buccal mucosa, and tongue normal and mucous membranes are dry NECK: supple, no nuchal rigidity, no adenopathy, non-tender LUNGS: Coarse cough noted during exam with scattered expiratory wheezes. Normal chest wall mechanics, no r/r, 89% RA with conversation, no retractions HEART: no murmurs, S1 normal and S2 normal ABDOMEN: abdomen soft, non-tender, normo-active bowel sounds, no masses, no rebound or guarding. BACK: Back is symmetrical on inspection and there is no deformity, no midline tenderness, no CVA tenderness. SKIN: no rashes and no bruising , no petechiae UPPER EXTREMITIES: upper extremities are grossly normal. FROM, nml pulses b/l. LOWER EXTREMITIES: No pitting edema. FROM, nml pulses b/l. NEURO EXAM: Normal sensorium, cranial nerves II-XII grossly intact, normal speech, no gross weakness of arms, no gross weakness of legs. Gross sensation intact. Course 1254: Past medical records reviewed. The patient was evaluated in room B09, and a complete history and physical examination were performed. 1533: I reevaluated the patient and he is resting in bed. I also updated him on results. 1640: Pt dropped to 84% with attempt at ambulation with increased WOB. 1647: I spoke to Dr. Adrian Burrows about the patient's case. He is going to accept the patient for further evaluation. Consultations Consultation #1: I spoke to Dr. Adrian Burrows about the patient's case. He is going to accept the patient for further evaluation. Time: 16:47 Administered Medications Acetaminophen (Tylenol) 325 mg PO Q6H PRN PRN Reason: Pain or Fever Stop: 06/15/19 18:02 Last Admin: 05/17/19 05:25 Dose: 325 mg Documented by: [id number] Admin: 05/16/19 21:57 Dose: 325 mg Documented by: [id number] Albuterol (Ventolin Hfa) 2 puffs INH Q4H PRN PRN Reason: Shortness Of Breath Or Wheezing Stop: 06/16/19 04:15 Last Admin: 05/17/19 11:19 Dose: 2 puffs Documented by: [id number] Admin: 05/17/19 05:22 Dose: 2 puffs Documented by: [id number] Albuterol (Duoneb) 3 ml NEB QIDR [facility] Stop: 06/16/19 14:59 Last Admin: 05/18/19 11:17 Dose: 3 ml Documented by: [id number] Admin: 05/18/19 07:25 Dose: 3 ml Documented by: [id number] Admin: 05/17/19 19:26 Dose: 3 ml Documented by: [id number] Admin: 05/17/19 14:19 Dose: 3 ml Documented by: [id number] Aspirin (Ecotrin Ectab) 81 mg PO DAILY [facility] Stop: 06/16/19 08:59 Last Admin: 05/18/19 09:02 Dose: 81 mg Documented by: [id number] Admin: 05/17/19 08:40 Dose: Not Given Documented by: [id number] Atorvastatin Calcium (Lipitor) 20 mg PO HS [facility] Stop: 06/15/19 20:59 Last Admin: 05/17/19 20:51 Dose: 20 mg Documented by: [id number] Admin: 05/16/19 21:48 Dose: 20 mg Documented by: [id number] Benzonatate (Tessalon Perle) 100 mg PO TID PRN PRN Reason: Cough Stop: 06/16/19 08:59 Last Admin: 05/18/19 06:04 Dose: 100 mg Documented by: [id number] Admin: 05/17/19 22:17 Dose: 100 mg Documented by: [id number] Admin: 05/17/19 15:57 Dose: 100 mg Documented by: [id number] Admin: 05/17/19 05:23 Dose: 100 mg Documented by: [id number] Heparin Sodium (Porcine) (Heparin Sodium (Porcine)) 5,000 units SQ Q12 [facility]IKA Stop: 06/15/19 20:59 Last Admin: 05/18/19 09:10 Dose: Not Given Documented by: [id number] Admin: 05/17/19 20:52 Dose: Not Given Documented by: [id number] Admin: 05/17/19 08:40 Dose: Not Given Documented by: [id number] Admin: 05/16/19 21:48 Dose: 5,000 units Documented by: [id number] Cosigned by: [id number] Ceftriaxone Sodium 2,000 mg/ (Dextrose) 70 mls @ 100 mls/hr IV Q24H [facility]; Protocol Stop: 05/23/19 20:59 Last Infusion: 05/17/19 21:31 Dose: 0 mls/hr Documented by: [id number] Admin: 05/17/19 20:49 Dose: 100 mls/hr Documented by: [id number] Infusion: 05/16/19 22:24 Dose: 0 mls/hr Documented by: [id number] Admin: 05/16/19 21:42 Dose: 100 mls/hr Documented by: [id number] Azithromycin 500 mg/ Dextrose 255 mls @ 125 mls/hr IV DAILY@2200 YESIKA Stop: 05/23/19 21:59 Last Infusion: 05/17/19 23:51 Dose: 0 mls/hr Documented by: [id number] Admin: 05/17/19 21:48 Dose: 125 mls/hr Documented by: [id number] Infusion: 05/17/19 00:33 Dose: 0 mls/hr Documented by: [id number] Admin: 05/16/19 22:30 Dose: 125 mls/hr Documented by: [id number] Insulin Aspart (Novolog Flexpen) 0 units SC ACHS [facility] Stop: 06/15/19 20:59 Last Admin: 05/18/19 13:08 Dose: 12 units Documented by: [id number] Cosigned by: [id number] Admin: 05/18/19 09:04 Dose: 7 units Documented by: [id number] Cosigned by: [id number] Admin: 05/17/19 20:54 Dose: 4 units Documented by: [id number] Cosigned by: [id number] Admin: 05/17/19 17:06 Dose: 4 units Documented by: [id number] Cosigned by: [id number] Admin: 05/17/19 13:34 Dose: Not Given Documented by: [id number] Cosigned by: [id number] Admin: 05/17/19 08:39 Dose: 2 units Documented by: [id number] Cosigned by: [id number] Admin: 05/16/19 21:52 Dose: 8 units Documented by: [id number] Cosigned by: [id number] Insulin Glargine (Lantus Solostar Pen) 0 - 8 units SC BID [facility]IKA; Protocol Stop: 06/16/19 20:59 Last Admin: 05/18/19 09:03 Dose: 6 units Documented by: [id number] Cosigned by: [id number] Admin: 05/17/19 20:55 Dose: 6 units Documented by: [id number] Cosigned by: [id number] Ioversol (Optiray 320 125ml) 119 ml IV ONCE PRN PRN Reason: Interaction Checking Stop: 05/20/19 14:19 Last Admin: 05/16/19 14:21 Dose: 119 ml Documented by: [id number] Menthol (Nice) 1 rani BUCCAL PRN PRN PRN Reason: Cough Stop: 06/16/19 04:43 Last Admin: 05/17/19 05:21 Dose: 1 rani Documented by: [id number] Discontinued Medications Albuterol (Duoneb) 3 ml NEB NOW STA Stop: 05/16/19 13:31 Last Admin: 05/16/19 13:40 Dose: 3 ml Documented by: [id number] Albuterol (Duoneb) 3 ml NEB NOW STA Stop: 05/16/19 16:08 Last Admin: 05/16/19 16:15 Dose: 3 ml Documented by: [id number] Albuterol (Duoneb) 3 ml NEB NOW STA Stop: 05/16/19 17:11 Last Admin: 05/16/19 18:17 Dose: 3 ml Documented by: [id number] Albuterol (Duoneb) 3 ml NEB Q8R [facility]IK[facility] Stop: 06/15/19 22:59 Last Admin: 05/17/19 07:25 Dose: 3 ml Documented by: [id number] Admin: 05/16/19 23:09 Dose: 3 ml Documented by: [id number] Dexamethasone (Decadron) 10 mg IV NOW STA Stop: 05/16/19 14:48 Last Admin: 05/16/19 15:00 Dose: 10 mg Documented by: [id number] Levofloxacin/Dextrose (Levaquin/D5w) 750 mg in 150 mls @ 100 mls/hr IV NOW STA Stop: 05/16/19 16:16 Last Infusion: 05/16/19 16:27 Dose: 0 mls/hr Documented by: [id number] Admin: 05/16/19 15:00 Dose: 100 mls/hr Documented by: [id number] Acetaminophen (Ofirmev) 1,000 mg in 100 mls @ 400 mls/hr IV NOW STA Stop: 05/16/19 15:18 Last Infusion: 05/16/19 16:00 Dose: 0 mls/hr Documented by: [id number] Admin: 05/16/19 15:39 Dose: 400 mls/hr Documented by: [id number] Sodium Chloride (Nss 1000ml) 1,000 mls @ 999 mls/hr IV .Q1H1M ONE Stop: 05/16/19 16:32 Last Infusion: 05/16/19 16:26 Dose: 0 mls/hr Documented by: [id number] Admin: 05/16/19 15:39 Dose: 999 mls/hr Documented by: [id number] Sodium Chloride (Nss 1000ml) 1,000 mls @ 80 mls/hr IV .[id number] YESIKA Stop: 06/15/19 20:59 Last Infusion: 05/18/19 10:44 Dose: 0 mls/hr Documented by: [id number] Infusion: 05/18/19 09:11 Dose: 0 mls/hr Documented by: [id number] Admin: 05/17/19 23:31 Dose: 80 mls/hr Documented by: [id number] Infusion: 05/17/19 23:31 Dose: 80 mls/hr Documented by: [id number] Admin: 05/17/19 12:14 Dose: 80 mls/hr Documented by: [id number] Infusion: 05/17/19 12:13 Dose: 0 mls/hr Documented by: [id number] Infusion: 05/17/19 00:33 Dose: 80 mls/hr Documented by: [id number] Infusion: 05/16/19 22:31 Dose: 0 mls/hr Documented by: [id number] Infusion: 05/16/19 22:24 Dose: 80 mls/hr Documented by: [id number] Infusion: 05/16/19 21:42 Dose: 0 mls/hr Documented by: [id number] Admin: 05/16/19 21:42 Dose: 80 mls/hr Documented by: [id number] Methylprednisolone 20 mg/ (Syringe) 0.32 mls @ 1.5 mls/min IV Q8 YESIKA Stop: 06/16/19 13:59 Last Admin: 05/18/19 14:39 Dose: Not Given Documented by: [id number] Admin: 05/18/19 06:04 Dose: 1.5 mls/min Documented by: [id number] Admin: 05/17/19 21:49 Dose: 1.5 mls/min Documented by: [id number] Admin: 05/17/19 15:50 Dose: 1.5 mls/min Documented by: [id number] Ketorolac Tromethamine (Toradol) 10 mg IV NOW STA Stop: 05/16/19 15:33 Last Admin: 05/16/19 15:39 Dose: 10 mg Documented by: [id number] Levalbuterol HCl (Xopenex 1.25mg/0.5ml Neb) 1.25 mg NEB NOW STA Stop: 05/16/19 17:10 Last Admin: 05/16/19 18:18 Dose: Not Given Documented by: [id number] Medical Decision Making Differential Diagnosis Differential diagnoses includes but is not limited to pneumonia, bronchitis, COPD/Asthma exacerbation, pneumothorax, pulmonary embolism, congestive heart failure, acute coronary syndrome, amongst others. Medical Records Attestation: I reviewed the patient's medical records. Home Medications Current Medication List: was personally reviewed by me Laboratory Data Attestation: I reviewed the patient's lab results. Result diagrams: 05/17/19 04:57 05/17/19 04:57 Lab Results 05/16/19 05/16/19 05/16/19 Range/Units 12:56 12:56 12:56 WBC 10.50 (4.8-10.8) K/uL RBC 5.18 (4.7-6.1) M/uL Hgb 14.5 (14.0-18.0) g/dL Hct 43.2 (42-52) % MCV 83.4 (80-100) fL MCH 28.0 (25-34) pg MCHC 33.6 (32-36) g/dL RDW Std Deviation 45.7 (36.4-46.3) fL RDW Coeff of Vanessa 14.9 H (11.5-14.5) % Plt Count 215 (130-400) K/uL MPV 9.9 (7.4-10.4) fL Immature Gran % (Auto) 0.1 % Neut % (Auto) 75.4 % Lymph % (Auto) 15.5 % [place] % (Auto) 8.1 % Eos % (Auto) 0.4 % Baso % (Auto) 0.5 % Immature Gran # (Auto) 0.01 (0.00-0.02) K/uL Neut # (Auto) 7.92 H (1.4-6.5) K/uL Lymph # (Auto) 1.63 (1.2-3.4) K/uL [place] # (Auto) 0.85 H (0.11-0.59) K/uL Eos # (Auto) 0.04 (0-0.5) K/uL Baso # (Auto) 0.05 (0-0.2) K/uL ESR (0-14) mm/hr D-Dimer 540 H* (0-500) ug/L FEU Sodium 136 (136-145) mmol/L Potassium 3.7 (3.5-5.1) mmol/L Chloride 103 (98-107) mmol/L Carbon Dioxide 25 (21-32) mmol/L Anion Gap 8.0 (3-11) BUN 13 (7-18) mg/dl Creatinine 1.03 (0.6-1.4) mg/dl Est Cr Clr Drug Dosing 114.4 ml/min Est GFR ( Amer) 99.1 Est GFR (Non-Af Amer) 85.5 BUN/Creatinine Ratio 13.0 (10-20) Glucose 115 H (70-99) mg/dl Estimat Average Glucose mg/dl Hemoglobin A1c (4.5-5.6) % Calcium 8.6 (8.5-10.1) mg/dl Magnesium 1.9 (1.8-2.4) mg/dl Total Bilirubin 0.6 (0.2-1) mg/dl AST 25 (15-37) U/L ALT 33 (12-78) U/L Alkaline Phosphatase 79 (45-117) U/L Troponin I < 0.015 (0-0.045) ng/ml C-Reactive Protein 7.14 H (0-0.29) mg/dl NT-Pro-B Natriuret Pep 24 (0-450) pg/ml Total Protein 7.6 (6.4-8.2) gm/dl Albumin 3.9 (3.4-5.0) gm/dl Globulin 3.7 (2.5-4.0) gm/dl Albumin/Globulin Ratio 1.1 (0.9-2) Lipase 34 L (73-393) U/L Procalcitonin (0-0.5) ng/ml TSH 0.239 L (0.300-4.500) uIu/ml Free T4 1.00 (0.8-1.6) ng/dl Influenza Type A (PCR) (Neg) Influenza Type B (PCR) (Neg) 05/16/19 05/16/19 05/16/19 Range/Units 12:56 12:56 12:56 WBC (4.8-10.8) K/uL RBC (4.7-6.1) M/uL Hgb (14.0-18.0) g/dL Hct (42-52) % MCV (80-100) fL MCH (25-34) pg MCHC (32-36) g/dL RDW Std Deviation (36.4-46.3) fL RDW Coeff of Vanessa (11.5-14.5) % Plt Count (130-400) K/uL MPV (7.4-10.4) fL Immature Gran % (Auto) % Neut % (Auto) % Lymph % (Auto) % [place] % (Auto) % Eos % (Auto) % Baso % (Auto) % Immature Gran # (Auto) (0.00-0.02) K/uL Neut # (Auto) (1.4-6.5) K/uL Lymph # (Auto) (1.2-3.4) K/uL [place] # (Auto) (0.11-0.59) K/uL Eos # (Auto) (0-0.5) K/uL Baso # (Auto) (0-0.2) K/uL ESR 55 H (0-14) mm/hr D-Dimer (0-500) ug/L FEU Sodium (136-145) mmol/L Potassium (3.5-5.1) mmol/L Chloride (98-107) mmol/L Carbon Dioxide (21-32) mmol/L Anion Gap (3-11) BUN (7-18) mg/dl Creatinine (0.6-1.4) mg/dl Est Cr Clr Drug Dosing ml/min Est GFR ( Amer) Est GFR (Non-Af Amer) BUN/Creatinine Ratio (10-20) Glucose (70-99) mg/dl Estimat Average Glucose 212 mg/dl Hemoglobin A1c 9.0 H (4.5-5.6) % Calcium (8.5-10.1) mg/dl Magnesium (1.8-2.4) mg/dl Total Bilirubin (0.2-1) mg/dl AST (15-37) U/L ALT (12-78) U/L Alkaline Phosphatase (45-117) U/L Troponin I (0-0.045) ng/ml C-Reactive Protein (0-0.29) mg/dl NT-Pro-B Natriuret Pep (0-450) pg/ml Total Protein (6.4-8.2) gm/dl Albumin (3.4-5.0) gm/dl Globulin (2.5-4.0) gm/dl Albumin/Globulin Ratio (0.9-2) Lipase (73-393) U/L Procalcitonin < 0.05 (0-0.5) ng/ml TSH (0.300-4.500) uIu/ml Free T4 (0.8-1.6) ng/dl Influenza Type A (PCR) (Neg) Influenza Type B (PCR) (Neg) 05/16/19 Range/Units 17:20 WBC (4.8-10.8) K/uL RBC (4.7-6.1) M/uL Hgb (14.0-18.0) g/dL Hct (42-52) % MCV (80-100) fL MCH (25-34) pg MCHC (32-36) g/dL RDW Std Deviation (36.4-46.3) fL RDW Coeff of Vanessa (11.5-14.5) % Plt Count (130-400) K/uL MPV (7.4-10.4) fL Immature Gran % (Auto) % Neut % (Auto) % Lymph % (Auto) % [place] % (Auto) % Eos % (Auto) % Baso % (Auto) % Immature Gran # (Auto) (0.00-0.02) K/uL Neut # (Auto) (1.4-6.5) K/uL Lymph # (Auto) (1.2-3.4) K/uL [place] # (Auto) (0.11-0.59) K/uL Eos # (Auto) (0-0.5) K/uL Baso # (Auto) (0-0.2) K/uL ESR (0-14) mm/hr D-Dimer (0-500) ug/L FEU Sodium (136-145) mmol/L Potassium (3.5-5.1) mmol/L Chloride (98-107) mmol/L Carbon Dioxide (21-32) mmol/L Anion Gap (3-11) BUN (7-18) mg/dl Creatinine (0.6-1.4) mg/dl Est Cr Clr Drug Dosing ml/min Est GFR ( Amer) Est GFR (Non-Af Amer) BUN/Creatinine Ratio (10-20) Glucose (70-99) mg/dl Estimat Average Glucose mg/dl Hemoglobin A1c (4.5-5.6) % Calcium (8.5-10.1) mg/dl Magnesium (1.8-2.4) mg/dl Total Bilirubin (0.2-1) mg/dl AST (15-37) U/L ALT (12-78) U/L Alkaline Phosphatase (45-117) U/L Troponin I (0-0.045) ng/ml C-Reactive Protein (0-0.29) mg/dl NT-Pro-B Natriuret Pep (0-450) pg/ml Total Protein (6.4-8.2) gm/dl Albumin (3.4-5.0) gm/dl Globulin (2.5-4.0) gm/dl Albumin/Globulin Ratio (0.9-2) Lipase (73-393) U/L Procalcitonin (0-0.5) ng/ml TSH (0.300-4.500) uIu/ml Free T4 (0.8-1.6) ng/dl Influenza Type A (PCR) Neg for Influ A (Neg) Influenza Type B (PCR) Neg for Influ B (Neg) Imaging Data Radiologist's Impression: Radiology results as stated below per my review and the radiologist's interpretation: XR chest 1V portable CLINICAL HISTORY: chest pain disc COMPARISON STUDY: 09/10/2018 FINDINGS: The bones soft tissues and hemidiaphragms are normal. The cardiomediastinal silhouette is normal. The lungs are clear. The pulmonary vasculature is normal. IMPRESSION: Negative chest. The above report was generated using voice recognition software. It may contain grammatical, syntax or spelling errors. Electronically signed by: Joe Nunez M.D. 05/16/2019 1:[address] angio chest PE protocol CT DOSE: 780.05 mGy.cm HISTORY: 48 years-old Male with PE. Acute chest pain with cough TECHNIQUE: Multiple CTA images of the chest were obtained after the intravenous administration of 119 ml Optiray 320. Coronal and sagittal MIPS were obtained from the axial data set and were submitted for review. All measurements were obtained according to NASCET criteria. A dose lowering technique was utilized adhering to the principles of ALARA. COMPARISON: Chest radiograph 05/16/2019, CT abdomen and pelvis 09/10/2018 FINDINGS: CTA: Heart is normal in size without pericardial effusion. No thoracic aortic aneurysm or dissection. There is patency of the imaged great vessels. The pulmonary arterial tree is opacified to the level of the proximal segmental branches. Respiratory motion artifact limits evaluation of the lung bases. No focal filling defects identified to suggest pulmonary thromboembolic disease. CT CHEST: Unremarkable thyroid. Prominent paratracheal lymph nodes measure up to 9 mm. Mildly enlarged bilateral hilar lymph nodes measure up to 2.3 x 1.2 cm on the left. There is no pneumothorax or pleural effusion. Mild bilateral bronchial wall thickening. 7 x 5 mm solid nodule of the right upper lobe, image 155 series 4. There are 2 additional tiny solid nodules just inferior to this measuring up to 3 mm. Bronchovascular distribution of left perihilar groundglass and nodular opacities are seen greatest in the left. No lobar airspace consolidation. Respiratory motion artifact limits evaluation of the lung parenchyma. Mild multifocal mucus plugging. No acute process of the imaged upper abdomen. Soft tissues are unremarkable. Degenerative changes of the shoulders and spine. IMPRESSION: 1. No evidence of pulmonary thromboembolic disease. 2. Bilateral bronchial wall thickening with left greater than right perihilar groundglass and nodular opacities suggestive of associated bronchopneumonia. This includes a 7 mm right perihilar nodular opacity of the right upper lobe. Follow-up imaging after treatment course recommended to document resolution. 3. Mild mediastinal and hilar adenopathy, likely reactive. The above report was generated using voice recognition software. It may contain grammatical, syntax or spelling errors. Electronically signed by: David Feliz M.D. 05/16/2019 2:39 PM ECG Data Attestation: I personally reviewed and interpreted this ECG as follows: Indication: chest pain Rate (beats per minute): 89 Rhythm: normal sinus ECG [place]: Normal ECG ST segments: Normal ST segments ECG Findings: Other (Normal intervals) Blood Pressure Blood Pressure Findings: Low blood pressure Blood Pressure Disposition: further management by hospitalist MDM Narrative Pt presenting with chest pain and URI symptoms, with a hx of tobacco abuse and prior pneumonia. Labs initially reassuring and cxr read negative. Despite PERC negative, dimer added and was elevated and CTA chest performed. This revealed b/l pneumonia. Pt improved at rest with IVF, meds, and nebs. Pt started on IV levaquin. Given decadron to help minimize the impact on his blood sugar given his occupation and travel. Pt monitored several hours to better assess response to interventions. Pt not hypoxic at rest, however with attempt at ambulation, sats dropped significantly and pt had markedly increased WOB. Case discussed with hospitalist for additional evaluation and treatment given concern for severity of condition despite stable appearance. I do not suspect additional cardiac etiology. No evidence of PE or effusion. No recent exposures per patient otherwise. I do not suspect bacteremia/sepsis. Impression & Plan Acute dyspnea, Chest pain, Pneumonia, Tobacco abuse Discharge Plan Visit Data *Final* Discharge Date/Time: 05/16/19 20:12 Chief Complaint: Chest Pain Stated Complaint: CHEST PAIN,SOB ED Provider: Batool Hay Discharge Problem: Acute dyspnea, Chest pain, Pneumonia, Tobacco abuse Patient Disposition: Admitted As Inpatient Discharge Instructions Interventions: ED Discharge Assessment Last Done: 05/16/19 20:12 Discharge Problem: Chest pain Qualifiers: Chest pain type: unspecified Qualified Code(s): R07.9 - Chest pain, unspecified Pneumonia Qualifiers: Pneumonia type: due to unspecified organism Laterality: bilateral Lung location: unspecified part of lung Qualified Code(s): J18.9 - Pneumonia, unspe cified organism The scribe's documentation has been prepared under my direction and personally reviewed by me in its entirety. I confirm that the note above accurately reflects all work, treatment, procedures, and medical decision making performed by me.
[2019-05-16] MEDS ORDERED: LEVALBUTEROL 1.25MG/0.5ML NEB NEB STA (17:09)
[2019-05-16] MEDS ORDERED: GLUCOSE 40% GEL 15 GM TUBE PO PRN (17:13)
[2019-05-16] MEDS ORDERED: GLUCAGON FOR INJ 1 MG VIAL SQ PRN (17:13)
[2019-05-16] MEDS ORDERED: DEXTROSE 50% 50 ML SYRINGE IV PRN (17:13)
[2019-05-16] MEDS ORDERED: GLUCOSE 10 TABS/TUBE PO PRN (17:13)
[2019-05-16] MEDS ORDERED: CARBOHYDRATES FOR HYPOGLYCEMIA PO PRN (17:13)
[2019-05-16 17:21] LABS: C Reactive Protein 7.14 mg/dl (0-0.29)
--- NOTE | 2019-05-16 17:29 | History & Physical Report ---
Date of Service May 16, 2019 Assessment & Plan (1) Pneumonia: -This is a 48 year old male with shortness of breath and chest pain since Sunday05/12/19. Symptoms accompanied by subjective warmth, but patient did not record body temperature. symptoms also accompanied by cough -elevated D-Dimer in the ED -CTA scan: 1. No evidence of pulmonary thromboembolic disease. 2. Bilateral bronchial wall thickening with left greater than right perihilar groundglass and nodular opacities suggestive of associated bronchopneumonia. This includes a 7 mm right perihilar nodular opacity of the right upper lobe. Follow-up imaging after treatment course recommended to document resolution. 3. Mild mediastinal and hilar adenopathy, likely reactive. -Levaquin given in the Ed for pneumonia -will stop further Levaquin and instead give in addition ceftriaxone starting on admission day and then regimen and ceftriaxone and azithromycin starting on 05/17/19 for community acquire pneumonia -elevated ESR, elevated CRP, procalcitonin is negative, check influenza swab, follow blood cultures, sputum cultures (2) COPD (chronic obstructive pulmonary disease): mild exacerbation of COPD -patient reports history of COPD and had quit smoking in the past -stop home inhalers -nebulizers of q8 hour Albuterol and ipratropium -antibiotics as above (3) Pleuritic chest pain: -chest pain from pneumonia and coughing -EKG is nonischemic (4) Diabetes mellitus: -check Hba1c -hold home diabetes medications -sliding scale insulin based on blood sugars -continue home dose aspirin and atorvastatin TSH noted to be low but normal free T4 DVT prophylaxis: heparin subcutaneous Full Code Patient will be followed by my colleague Dr. Rodriguez starting on 05/17/19 History of Present Illness This is a 48 year old male with shortness of breath and chest pain since Sunday05/12/19. Symptoms accompanied by subjective warmth, but patient did not record body temperature. symptoms also accompanied by cough denies nausea or vomiting, denies problems with urination or with bowel movements. denies lightheadedness or dizziness. denies problems with ambulation denies family history of health problems denies allergies Primary Care Provider: Joe Metzger MD Allergies Allergy/AdvReac Type Severity Reaction Status Date / Time bee venom protein (honey bee) Allergy Severe ANAPHYLAXIS Verified 05/16/19 14:25 Home Medications Home Medications Medication Instructions Recorded Confirmed Type albuterol sulfate 2 puff INHALATION Q4H PRN 09/10/18 05/16/19 History aspirin 81 mg PO DAILY 09/10/18 05/16/19 History atorvastatin [Lipitor] 20 mg PO HS 09/10/18 05/16/19 History epinephrine [EpiPen] 0.3 mg IM Q3H PRN 09/10/18 05/16/19 History fluticasone furoate-vilanterol 1 inh INHALATION DAILY 09/10/18 05/16/19 History [Breo Ellipta] fluticasone propionate [Flonase 2 spray INTRANASAL DAILY 09/10/18 05/16/19 History Allergy Relief] hydrocodone-acetaminophen [[place]] 1 tab PO BID PRN 09/10/18 05/16/19 History loratadine [Claritin] 10 mg PO DAILY 09/10/18 05/16/19 History metformin 1,000 mg PO BID 05/16/19 05/16/19 History semaglutide [Ozempic] 0.25 mg SUBCUT WK 05/16/19 05/16/19 History Past Med/Surg History Medical History Acute gastritis No significant family history No significant medical problems No significant past surgical history Family History Other No pertinent family history in first degree relatives Social History Preferred Language: Cymraes Communication Ability: Effective Beliefs That Will Affect Care: None Current Living Situation: Other Current Living Situation Comment: [facility] Other Information That Helps Us Care for You: No Feels Safe at Home: Yes Safety Concerns: Feels Safe At This Time Smoking Status: Current every day smoker Tobacco Type: cigarettes ; Cigarettes Per Day: 10 ; Hx Alcohol Use: No Hx Substance Use: No Review of Systems Review of Systems: All systems reviewed & are unremarkable except as noted in HPI & below Physical Exam Constitutional: cooperative Eyes: PERRL, conjunctivae normal, anicteric sclerae EOM intact bilaterally ENMT: external ear and nose normal, oropharynx normal Neck: normal visual inspection Respiratory: breathing on room air, mild wheezes, coughing, mildly diminished air entry on inhalation and exhalation Gastrointestinal (Abdomen): normal bowel sounds, soft, nontender, no hepatosplenomegaly Musculoskeletal: no cyanosis or clubbing, extremities motor strength 5/5 Head/Neck/Chest: normocephalic and head atraumatic Neurologic: PERRL, EOMI, accommodation nl, no face palsy, no dysarthria CN's II-XI intact bilaterally Psychiatric: A+Ox3, euthymic affect Results & Data Vital Signs (Past 12 Hours) Vital Signs Temp Pulse Pulse Pulse Pulse Pulse Resp 05/16/19 16:39 107 H 94 H 91 H 05/16/19 16:16 92 H 16 05/16/19 15:30 104 H 13 05/16/19 15:00 101 H 13 05/16/19 14:30 99 H 18 05/16/19 14:09 104 H 22 05/16/19 14:00 101 H 12 05/16/19 13:40 94 H 14 05/16/19 13:30 96 H 16 05/16/19 13:00 98 H 13 05/16/19 12:45 93 H 34 H 05/16/19 12:37 05/16/19 12:12 37.4 C 104 H 20 Resp Resp Resp BP Pulse Ox Pulse Ox Pulse Ox 05/16/19 16:39 28 H 26 H 24 84 L 92 05/16/19 16:16 95 05/16/19 15:30 98/60 L 96 05/16/19 15:00 139/84 97 05/16/19 14:30 114/68 95 05/16/19 14:09 127/69 05/16/19 14:00 05/16/19 13:40 94 05/16/19 13:30 05/16/19 13:00 94 05/16/19 12:45 93 05/16/19 12:37 98 05/16/19 12:12 141/72 H 93 Pulse Ox 05/16/19 16:39 95 05/16/19 16:16 05/16/19 15:30 05/16/19 15:00 05/16/19 14:30 05/16/19 14:09 05/16/19 14:00 05/16/19 13:40 05/16/19 13:30 05/16/19 13:00 05/16/19 12:45 05/16/19 12:37 05/16/19 12:12 (1) Pneumonia Laterality: bilateral Lung location: unspecified part of lung Pneumonia type: due to unspecified organism Qualified Code(s): J18.9 - Pneumonia, unspecified organism
[2019-05-16 18:10] LABS: Influenza A virus by PCR Neg for Influ A (Neg); Influenza B virus by PCR Neg for Influ B (Neg)
[2019-05-16] MEDS: cefTRIAXone SODIUM 2,000 MG in DEXTROSE 5% 50 ML IV SCH (21:42)
[2019-05-16] MEDS: SODIUM CHLORIDE 0.9% 1000ML 1,000 ML IV SCH (21:42)
[2019-05-16] MEDS: ATORVASTATIN 20 MG TAB PO SCH (21:48)
[2019-05-16] MEDS: HEPARIN SOD 5,000 UNIT/0.5 ML VIAL SQ SCH (21:48)
[2019-05-16] MEDS: INSULIN ASPART 100 UNITS/ML 3 ML PEN SC SCH (21:52)
[2019-05-16] MEDS: ACETAMINOPHEN 325 MG TAB PO PRN (21:57)
[2019-05-16] MEDS: AZITHROMYCIN 500 MG in DEXTROSE 5% 250 ML IV SCH (22:30)
[2019-05-16] MEDS: ALBUT/IPRATROP 3MG/0.5MG NEB 3 ML VIAL NEB SCH (23:09)
[2019-05-17] MEDS ORDERED: COUGH DROP (SUGAR FREE) LOZ 24 LOZ/1 BOX BUCCAL PRN (04:44)
[2019-05-17] MEDS: ALBUTEROL HFA 8 GM INHALER INH PRN ×2 (05:22→11:19)
[2019-05-17] MEDS: BENZONATATE 100 MG CAPSULE PO PRN ×3 (05:23→22:17)
[2019-05-17] MEDS: ACETAMINOPHEN 325 MG TAB PO PRN (05:25)
[2019-05-17 05:38] LABS: Hematocrit (blood only) 38.7 % (42-52); Hemoglobin 12.9 g/dL (14.0-18.0); Mean Corpuscular Hemoglobin 27.9 pg (25-34); Mean Corpuscular Hgb Conc 33.3 g/dL (32-36); Mean Corpuscular Volume 83.6 fL (80-100); Mean Platelet Volume 10.2 fL (7.4-10.4); Platelet Count 249 K/uL (130-400); RDW Coefficient of Variation 14.7 % (11.5-14.5); RDW Standard Deviation 45.2 fL (36.4-46.3); Red Blood Count 4.63 M/uL (4.7-6.1); White Blood Count 7.26 K/uL (4.8-10.8)
[2019-05-17 06:17] LABS: BUN Creatinine Ratio 17.8 (10-20); Creatinine Clr Calc Pharmacy 140.3 ml/min; Est GFR (Non-African American) 103.5
[2019-05-17 06:20] LABS: Albumin Globulin Ratio 0.8 (0.9-2); Bilirubin,Total 0.3 mg/dl (0.2-1); Globulin 3.6 gm/dl (2.5-4.0); Total Protein 6.6 gm/dl (6.4-8.2)
[2019-05-17 06:28] LABS: Basophils # (auto) 0.06 K/uL (0-0.2); Basophils % (auto) 0.8 %; Echinocytes 1+; Immature Granulocytes # (auto) 0.02 K/uL (0.00-0.02); Immature Granulocytes % (auto) 0.3 %; Lymphocytes # (auto) 2.11 K/uL (1.2-3.4); Lymphocytes % (auto) 29.1 %; Monocytes # (auto) 0.56 K/uL (0.11-0.59); Monocytes % (auto) 7.7 %; Neutrophils # (auto) 4.51 K/uL (1.4-6.5); Neutrophils % (auto) 62.1 %
[2019-05-17 07:13] LABS: Estimated Average Glucose 212 mg/dl
[2019-05-17] MEDS: ALBUT/IPRATROP 3MG/0.5MG NEB 3 ML VIAL NEB SCH ×3 (07:25→19:26)
[2019-05-17] MEDS: INSULIN ASPART 100 UNITS/ML 3 ML PEN SC SCH ×4 (08:39→20:54)
[2019-05-17] MEDS: ASPIRIN 81 MG ECTAB PO SCH (08:40)
[2019-05-17] MEDS: HEPARIN SOD 5,000 UNIT/0.5 ML VIAL SQ SCH ×2 (08:40→20:52)
[2019-05-17] MEDS: SODIUM CHLORIDE 0.9% 1000ML 1,000 ML IV SCH ×2 (12:14→23:31)
[2019-05-17] MEDS: methylPREDNISolone 20 MG in SYRINGE 0 ML IV SCH ×2 (15:50→21:49)
--- NOTE | 2019-05-17 19:10 | Hospitalist Progress Note ---
Date of Service May 17, 2019 Assessment & Plan (1) Pneumonia: Presented with cough and pleuritic chest pain. Nasal swab for influenza A/B negative. Chest x-ray did not show any definite infiltrates. CTA chest showed bibasilar infiltrates, no pulmonary emboli. Started on azithromycin and ceftriaxone for community acquired pneumonia. (2) COPD exacerbation: COPD exacerbation secondary to pneumonia. Received dexamethasone yesterday. Add IV methylprednisolone because of persistent bronchospasm. Continue nebs- change to QID. (3) Diabetes mellitus type 2, uncontrolled: DM type 2. Hgb A1C was 11.9 last year at time of diagnosis. Last Hgb A1C in clinic was 9.4. Semaglutide added to metformin. Hgb A1C now 9.0. Anticipate elevated blood sugars due to acute illness and steroids. Hold semaglutide and metformin. Lantus / NovoLog per protocol. (4) DVT prophylaxis: SQ heparin. Ambulate. (5) Discharge planning issues: Anticipated discharge to home. Family Medicine follow-up with Dr. Metzger. Subjective Recheck for pneumonia & COPD exacerbation. Patient seen in their room around 1150. Cough generally improved. Episode of chest congestion / ? pressure this morning. No EKG changes. [place] better after albuterol neb. Persistent wheezing. No fever. Review of Systems: Constitutional- no fever. Cardiac- as noted above. Pulmonary- as noted above. GI- no nausea, vomiting, diarrhea, melena, hematochezia. - no urinary symptoms. Otherwise, as noted above. Physical Exam Constitutional: no acute distress Respiratory: no respiratory distress Auscultation: + wheezes (diffuse, moderate) Cardiovascular: Rate/Rhythm: regular rate and regular rhythm Heart Sounds: no gallop, no murmur and no cardiac rub Vessels: no JVD Extremities: no calf tenderness and no edema Gastrointestinal (Abdomen): normal bowel sounds, soft, nontender, no hepatosplenomegaly Skin: no rashes, warm and dry Psychiatric: Orientation: alert and oriented x 3 Results & Data Vital Signs (Past 12 Hours) Vital Signs Temp Pulse Resp BP Pulse Ox 05/17/19 14:54 36.8 C 79 18 111/65 90 05/17/19 14:22 79 18 97 05/17/19 11:20 36.6 C 88 20 112/74 95 05/17/19 07:27 79 18 94 05/17/19 07:15 36.7 C 76 18 117/72 95 Laboratory Results 05/17/19 04:57 05/17/19 04:57 ECG Additional Comments: EKG performed at 1131 reviewed and demonstrated NSR at 76 / min, no acute changes. (1) Pneumonia Laterality: bilateral Lung location: unspecified part of lung Pneumonia type: due to unspecified organism Qualified Code(s): J18.9 - Pneumonia, unspecified organism
[2019-05-17] MEDS: cefTRIAXone SODIUM 2,000 MG in DEXTROSE 5% 50 ML IV SCH (20:49)
[2019-05-17] MEDS: ATORVASTATIN 20 MG TAB PO SCH (20:51)
[2019-05-17] MEDS: INSULIN GLARGINE SOLOSTAR 100 UNITS/ML 3 ML PEN SC SCH (20:55)
[2019-05-17] MEDS: AZITHROMYCIN 500 MG in DEXTROSE 5% 250 ML IV SCH (21:48)
[2019-05-18] MEDS: methylPREDNISolone 20 MG in SYRINGE 0 ML IV SCH ×2 (06:04→14:39)
[2019-05-18] MEDS: BENZONATATE 100 MG CAPSULE PO PRN ×2 (06:04→21:12)
[2019-05-18] MEDS: ALBUT/IPRATROP 3MG/0.5MG NEB 3 ML VIAL NEB SCH ×4 (07:25→19:09)
[2019-05-18] MEDS: HEPARIN SOD 5,000 UNIT/0.5 ML VIAL SQ SCH ×3 (09:02→20:15)
[2019-05-18] MEDS: ASPIRIN 81 MG ECTAB PO SCH (09:02)
[2019-05-18] MEDS: INSULIN GLARGINE SOLOSTAR 100 UNITS/ML 3 ML PEN SC SCH ×2 (09:03→20:46)
[2019-05-18] MEDS: INSULIN ASPART 100 UNITS/ML 3 ML PEN SC SCH ×4 (09:04→20:45)
--- NOTE | 2019-05-18 15:12 | Pulmonary Consultation ---
Date of Consultation May 18, 2019 Assessment & Plan (1) COPD exacerbation: --Multilobar pneumonia With likely reactive mediastinal lymphadenopathy Continue with antibiotics with atypical coverage Patient has growing Aspergillus in the sputum culture. CT chest does show tree-in-bud and bronchial wall thickening but no bronchiectasis. Very nonspecific. Likely colonization in a patient who is immunocompetent. No emergent indication for its treatment right now. Ordered Aspergillus IgE/IgM. Total IgE and Aspergillus precipitants. Patient has no eosinophilia in his blood. Absolute eosinophil count maximum was found to be 320 back in August 2018 CTA chest reviewed: Bilateral central tree-in-bud opacities likely infiltrate, mediastinal lymphadenopathy appreciated likely reactive. Airway obstruction appreciated bilateral lower lobes. -- COPD exacerbation Inciting event likely was multilobar pneumonia Continue with steroids, inhaled bronchodilators, antibiotics, influenza was negative Follow-up septic work-up, mycoplasma IgM Patient on Brio inhaler as an outpatient with as needed albuterol Needs PFTs as an outpatient --Active smoker with VAPing Advised to quit Patient is willing to quit Given the patient has history of depression with trying to hurt himself in the past Bupropion with nicotine patch/nicotine gum would be a good place to start, this should be done as an outpatient. (2) Diabetes mellitus: (3) Pneumonia: Laterality: bilateral Lung location: unspecified part of lung Pneumonia type: due to unspecified organism Qualified Code(s): J18.9 - Pneumonia, unspecified organism (4) Tobacco abuse: History of Present Illness Attending Physician: Gustabo Rodriguez MD History of Present Illness 48-year-old male with past medical history of diabetes mellitus type 2, childhood asthma, COPD, active smoker comes to the hospital with complaints of cough with greenish phlegm and shortness of breath which has been going progressively worse since last 3-4 days. Positive subjective fevers. No hemoptysis. No chills. Denies any dysuria, no diarrhea, no hematuria, no hematochezia. No blurry vision, no headache, no dizziness. No recent upper respiratory tract infection. Complains of tearing from the eyes which is chronic for him as per the patient. Chest pain musculoskeletal especially on coughing, reproducible. Night sweats since last 2 days. Patient has been trying to lose weight but has not lost any. No brown plaques on coughing. Social history: Greater than [id number] smoking history, active smoker, does vap as well, no illicit drug use, social alcohol. 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 Denies any allergies to any medication. Patient has never been intubated in the past. Patient has past medical history of depression with episodes of trying to hurt himself. Denies any suicidal ideation right now. Not taking any antidepressive medication for the time being. Allergies Allergy/AdvReac Type Severity Reaction Status Date / Time bee venom protein (honey bee) Allergy Severe ANAPHYLAXIS Verified 05/16/19 14:25 Patient History Medical History Abnormal CT scan, chest (Acute) Acute gastritis No significant family history No significant medical problems No significant past surgical history Family History Other No pertinent family history in first degree relatives Social History Preferred Language: Yakut Communication Ability: Effective Beliefs That Will Affect Care: None Current Living Situation: Other Current Living Situation Comment: [facility] Feels Safe at Home: Yes Smoking Status: Current every day smoker Tobacco Type: cigarettes ; Cigarettes Per Day: 10 ; Hx Alcohol Use: No Hx Substance Use: No Review of Systems Review of Systems: All systems reviewed & are unremarkable except as noted in HPI & below Physical Exam Physical Exam: Constitutional: No acute distress HEENT: EOMI, PERRLA, moist mucous membranes Respiratory system: Good air entry bilaterally, diffuse expiratory wheeze, no crackles, no rhonchi CVS: S1-S2 positive, no murmurs or gallops Abdomen: Soft, nontender, nondistended, positive bowel sounds x4 Extremities: +2 pulses bilaterally radialis/ dorsalis pedis, no edema, no cyanosis, tattoos bilateral lower extremity, no clubbing Neuro: Awake alert oriented x3 Psych: Normal mood and affect G/U: No [place] Skin: no rashes, warm and dry Lymphatic: no cervical or axillary lymphadenopathy Results & Data Vital Signs (Past 12 Hours) Vital Signs Temp Pulse Resp BP Pulse Ox 05/18/19 11:18 71 16 95 05/18/19 08:00 36.4 C L 05/18/19 07:25 71 16 94 05/18/19 07:11 35.8 C L 19 127/81 94 05/17/19 04:57 05/17/19 04:57 PG Care Time/CCT Total # of Minutes Spent Total Time Spent with Patient: Total time spent is greater than 50% in coordination of care (as documented) at patient's floor/unit and/or counseling patient:
--- NOTE | 2019-05-18 17:42 | Hospitalist Progress Note ---
Date of Service May 18, 2019 Assessment & Plan (1) Pneumonia: Presented with cough and pleuritic chest pain. Nasal swab for influenza A/B negative. Chest x-ray did not show any definite infiltrates. CTA chest showed bibasilar infiltrates, no pulmonary emboli. Started on azithromycin and ceftriaxone for community acquired pneumonia. Sputum culture growing Aspergillus. ? clinical significance. Consult Pulmonary Medicine. (2) COPD exacerbation: COPD exacerbation secondary to pneumonia. Received dexamethasone yesterday. Added IV methylprednisolone because of persistent bronchospasm. Continue nebs. (3) Diabetes mellitus type 2, uncontrolled: DM type 2. Hgb A1C was 11.9 last year at time of diagnosis. Last Hgb A1C in clinic was 9.4. Semaglutide added to metformin. Hgb A1C now 9.0. Anticipate elevated blood sugars due to acute illness and steroids. Hold semaglutide and metformin. Lantus / NovoLog per protocol. (4) DVT prophylaxis: SQ heparin. Ambulate. (5) Discharge planning issues: Anticipated discharge to home. Family Medicine follow-up with Dr. Metzger. Subjective Recheck for pneumonia & COPD exacerbation. Patient seen in their room around 0940. No fever. Cough and wheezing improved. Blood sugars running high. Review of Systems: Constitutional- no fever. Cardiac- as noted above. Pulmonary- as noted above. GI- no nausea, vomiting, diarrhea, melena, hematochezia. - no urinary symptoms. Otherwise, as noted above. Physical Exam Constitutional: no acute distress Respiratory: no respiratory distress Auscultation: + wheezes (diffuse, moderate) Cardiovascular: Rate/Rhythm: regular rate and regular rhythm Heart Sounds: no gallop, no murmur and no cardiac rub Vessels: no JVD Extremities: no calf tenderness and no edema Gastrointestinal (Abdomen): normal bowel sounds, soft, nontender, no hepatosplenomegaly Skin: no rashes, warm and dry Psychiatric: Orientation: alert and oriented x 3 Results & Data Vital Signs (Past 12 Hours) Vital Signs Temp Pulse Resp BP Pulse Ox 05/18/19 16:03 71 14 97 05/18/19 15:18 36.7 C 76 19 139/70 95 05/18/19 11:18 71 16 95 05/18/19 08:00 36.4 C L 05/18/19 07:25 71 16 94 05/18/19 07:11 35.8 C L 19 127/81 94 Laboratory Results 05/17/19 04:57 05/17/19 04:57 Microbiology 05/16/19 17:48 Blood Aerobic Blood Culture - Preliminary No growth in Aerobic bottle after 48 hours. 05/16/19 17:48 Blood Anaerobic Blood Culture - Preliminary No growth in Anaerobic bottle after 48 hours. 05/16/19 17:54 Blood Aerobic Blood Culture - Preliminary No growth in Aerobic bottle after 48 hours. 05/16/19 17:54 Blood Anaerobic Blood Culture - Preliminary No growth in Anaerobic bottle after 48 hours. 05/17/19 04:05 Sputum, Expectorated Gram Stain - Final 05/17/19 04:05 Sputum, Expectorated Sputum Culture - Preliminary Aspergillus species (1) Pneumonia Laterality: bilateral Lung location: unspecified part of lung Pneumonia type: due to unspecified organism Qualified Code(s): J18.9 - Pneumonia, unspecified organism
[2019-05-18] MEDS: cefTRIAXone SODIUM 2,000 MG in DEXTROSE 5% 50 ML IV SCH (20:11)
[2019-05-18] MEDS: ATORVASTATIN 20 MG TAB PO SCH (20:16)
[2019-05-18] MEDS: methylPREDNISolone 40 MG in SYRINGE 0 ML IV SCH (20:51)
[2019-05-18] MEDS: AZITHROMYCIN 500 MG in DEXTROSE 5% 250 ML IV SCH (21:11)
[2019-05-18] MEDS ORDERED: methylPREDNISolone 40 MG in SYRINGE 0 ML IV SCH (22:00)
[2019-05-18] MEDS: ACETAMINOPHEN 325 MG TAB PO PRN (23:37)
[2019-05-19] MEDS: ALBUT/IPRATROP 3MG/0.5MG NEB 3 ML VIAL NEB SCH ×3 (07:01→15:07)
[2019-05-19] MEDS: methylPREDNISolone 40 MG in SYRINGE 0 ML IV SCH (09:04)
[2019-05-19] MEDS: ASPIRIN 81 MG ECTAB PO SCH (09:04)
[2019-05-19] MEDS: HEPARIN SOD 5,000 UNIT/0.5 ML VIAL SQ SCH (09:04)
[2019-05-19] MEDS: INSULIN GLARGINE SOLOSTAR 100 UNITS/ML 3 ML PEN SC SCH (09:05)
[2019-05-19] MEDS: INSULIN ASPART 100 UNITS/ML 3 ML PEN SC SCH ×2 (09:07→13:22)
--- NOTE | 2019-05-19 11:29 | Pulmonology Progress Note ---
Date of Service May 19, 2019 Assessment & Plan (1) COPD exacerbation: Etiology of tree-in-bud nodular infiltrates on CT chest is broad (infectious vs inflammatory...less likely malignancy such as adeno in situ/SEVERO). Possible HP from vaping and work exposures. Possible atypical infection. Treat with doxy for 5 days and prednisone 40 mg for 5 days. Advised to absolutely abstain from all tobacco products and vaping. 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 Aspergilus indices pending. IgE level pending. Will send HP panel as well. May need bronch with BAL as outpatient to look at cell counts and eval for NTM or other atypical organisms. Follow up in pulm clinic in [address] chest without contrast in 6 weeks. I personally spoke with Dr. Pruett and Dr. Rodriguez regarding his care plan. (2) Diabetes mellitus: (3) Pneumonia: Laterality: bilateral Lung location: unspecified part of lung Pneumonia type: due to unspecified organism Qualified Code(s): J18.9 - Pneumonia, unspecified organism (4) Tobacco abuse: Subjective Patient feels much better. Ready to go home. Denies wheezing. Minimal cough. No chest pain. No fevers. Interestingly, he did report that he Vapes. He uses a "natural vegetarian blend". He says he does not super heat the elements and only keeps the vaping unit to 20 mosher and actually demonstrated this to me in the room. 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 Review of Systems Review of Systems: All systems reviewed & are unremarkable except as noted in HPI & below Physical Exam Constitutional: WD/WN, vitals as above Eyes: PERRL, conjunctivae normal, anicteric sclerae ENMT: external ear and nose normal, oropharynx normal Neck: normal visual inspection Respiratory: normal respiratory effort; no respiratory distress minimal wheeze RUL Cardiovascular: RRR, no murmur, no edema Gastrointestinal (Abdomen): normal bowel sounds, soft, nontender, no hepatosplenomegaly Musculoskeletal: no cyanosis or clubbing, extremities motor strength 5/5 Skin: Tattoos noted Neurologic: PERRL, EOMI, accommodation nl, no face palsy, no dysarthria Psychiatric: A+Ox3, euthymic affect Results & Data Vital Signs (Past 12 Hours) Vital Signs Temp Pulse Pulse Resp BP Pulse Ox 05/19/19 07:53 98.9 F 76 12 132/76 92 05/19/19 07:26 98.2 F 78 18 132/67 92 05/19/19 07:02 95 H 16 97 Personally reviewed pertinent labs and chest imaging PG Care Time/CCT Total # of Minutes Spent Total Time Spent with Patient: Total time spent is greater than 50% in c oordination of care (as documented) at patient's floor/unit and/or counseling patient:
--- NOTE | 2019-05-19 14:38 | Hospitalist Progress Note ---
Date of Service May 19, 2019 Assessment & Plan (1) Pneumonia: Presented with cough and pleuritic chest pain. Nasal swab for influenza A/B negative. Chest x-ray did not show any definite infiltrates. CTA chest showed bibasilar infiltrates, no pulmonary emboli. Started on azithromycin and ceftriaxone for community acquired pneumonia. Sputum culture growing Aspergillus. ? clinical significance. Pulmonary Medicine consulted. Arma that Aspergillus most likely colonization, but further evaluation recommended. Aspergillus fumigatus antibodies and IgE ordered. Discharge on doxycycline x 5 days. Outpatient follow-up with Pulmonary Medicine. (2) COPD exacerbation: COPD exacerbation secondary to pneumonia. Received dexamethasone in ED. IV methylprednisolone added because of persistent bronchospasm. Discharge on prednisone 40 mg daily x 5 days. (3) Abnormal CT scan, chest: CTA CHEST CTA: Heart is normal in size without pericardial effusion. No thoracic aortic aneury sm or dissection. There is patency of the imaged great vessels. The pulmonary arterial tree is opacified to the level of the proximal segmental branches. Respiratory motion artifact limits evaluation of the lung bases. No focal filling defects identified to suggest pulmonary thromboembolic disease. CT CHEST: Unremarkable thyroid. Prominent paratracheal lymph nodes measure up to 9 mm. Mildly enlarged bilateral hilar lymph nodes measure up to 2.3 x 1.2 cm on the left. There is no pneumothorax or pleural effusion. Mild bilateral bronchial wall thickening. 7 x 5 mm solid nodule of the right upper lobe, image 155 series 4. There are 2 additional tiny solid nodules just inferior to this measuring up to 3 mm. Bronchovascular distribution of left perihilar groundglass and nodular opacities are seen greatest in the left. No lobar airspace consolidation. Respiratory motion artifact limits evaluation of the lung parenchyma. Mild multifocal mucus plugging. No acute process of the imaged upper abdomen. Soft tissues are unremarkable. Degenerative changes of the shoulders and spine. IMPRESSION: 1. No evidence of pulmonary thromboembolic disease. 2. Bilateral bronchial wall thickening with left greater than right perihilar groundglass and nodular opacities suggestive of associated bronchopneumonia. This includes a 7 mm right perihilar nodular opacity of the right upper lobe. Follow-up imaging after treatment course recommended to document resolution. 3. Mild mediastinal and hilar adenopathy, likely reactive. The above report was generated using voice recognition software. It may contain grammatical, syntax or spelling errors. Electronically signed by: David Feliz M.D. 05/16/2019 2:39 PM Outpatient follow-up with Pulmonary Medicine. (4) Diabetes mellitus type 2, uncontrolled: DM type 2. Hgb A1C was 11.9 last year at time of diagnosis. Last Hgb A1C in clinic was 9.4. Semaglutide added to metformin. Hgb A1C now 9.0. Elevated blood sugars due to acute illness and steroids. Semaglutide and metformin held. Received Lantus / NovoLog per protocol. FBS day of discharge 230. Resume usual regimen, including NovoLog sliding scale coverage as needed. (5) Smoking: Importance of smoking cessation discussed. Further discussion with PCP or Pulmonary Medicine advised. (6) DVT prophylaxis: SQ heparin. Ambulate. (7) Discharge planning issues: Anticipated discharge to home. Family Medicine follow-up with Dr. Metzger. Subjective Recheck for pneumonia & COPD exacerbation. Patient seen in their room around 1320. Feels better. No fever. Cough and wheezing improved. Review of Systems: Constitutional- no fever. Cardiac- as noted above. Pulmonary- as noted above. GI- no nausea, vomiting, diarrhea, melena, hematochezia. - no urinary symptoms. Otherwise, as noted above. Physical Exam Constitutional: no acute distress Respiratory: no respiratory distress Auscultation: + wheezes (diffuse, mild) Cardiovascular: Rate/Rhythm: regular rate and regular rhythm Heart Sounds: no gallop, no murmur and no cardiac rub Vessels: no JVD Extremities: no calf tenderness and no edema Gastrointestinal (Abdomen): normal bowel sounds, soft, nontender, no hepatosplenomegaly Skin: no rashes, warm and dry Psychiatric: Orientation: alert and oriented x 3 Results & Data Vital Signs (Past 12 Hours) Vital Signs Temp Pulse Pulse Resp BP Pulse Ox 05/19/19 11:33 36.5 C 73 12 132/80 93 05/19/19 07:53 37.2 C 76 12 132/76 92 05/19/19 07:26 36.8 C 78 18 132/67 92 05/19/19 07:02 95 H 16 97 (1) Pneumonia Laterality: bilateral Lung location: unspecified part of lung Pneumonia type: due to unspecified organism Qualified Code(s): J18.9 - Pneumonia, unspecified organism
--- NOTE | 2019-05-19 20:57 | Discharge Summary ---
Date of Service Date of Admission: 05/16/19 Date of Discharge: 05/19/19 Admission HPI Per Admitting Provider This is a 48 year old male with shortness of breath and chest pain since Sunday05/12/19. Symptoms accompanied by subjective warmth, but patient did not record body temperature. symptoms also accompanied by cough denies nausea or vomiting, denies problems with urination or with bowel movements. denies lightheadedness or dizziness. 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 Nasal swab for influenza A/B negative. Chest x-ray did not show any definite infiltrates. CTA chest showed bibasilar infiltrates, no pulmonary emboli. Other CT abnormalities as noted below. Started on azithromycin and ceftriaxone for community acquired pneumonia. Sputum culture growing Aspergillus. ? clinical significance. Pulmonary Medicine consulted. [place] that Aspergillus most likely colonization, but further evaluation recommended. Aspergillus fumigatus antibodies and IgE ordered. Discharge on doxycycline x 5 days. Outpatient follow-up with Pulmonary Medicine. (2) COPD exacerbation: COPD exacerbation secondary to pneumonia. Received dexamethasone in ED. IV methylprednisolone added because of persistent bronchospasm. Discharge on prednisone 40 mg daily x 5 days. (3) Abnormal CT scan, chest: CTA CHEST CTA: Heart is normal in size without pericardial effusion. No thoracic aortic aneurysm or dissection. There is patency of the imaged great vessels. The pulmonary arterial tree is opacified to the level of the proximal segmental branches. Respiratory motion artifact limits evaluation of the lung bases. No focal filling defects identified to suggest pulmonary thromboembolic disease. CT CHEST: Unremarkable thyroid. Prominent paratracheal lymph nodes measure up to 9 mm. Mildly enlarged bilateral hilar lymph nodes measure up to 2.3 x 1.2 cm on the left. There is no pneumothorax or pleural effusion. Mild bilateral bronchial wall thickening. 7 x 5 mm solid nodule of the right upper lobe, image 155 series 4. There are 2 additional tiny solid nodules just inferior to this measuring up to 3 mm. Bronchovascular distribution of left perihilar groundglass and nodular opacities are seen greatest in the left. No lobar airspace consolidation. Respiratory motion artifact limits evaluation of the lung parenchyma. Mild multifocal mucus plugging. No acute process of the imaged upper abdomen. Soft tissues are unremarkable. Degenerative changes of the shoulders and spine. IMPRESSION: 1. No evidence of pulmonary thromboembolic disease. 2. Bilateral bronchial wall thickening with left greater than right perihilar groundglass and nodular opacities suggestive of associated bronchopneumonia. This includes a 7 mm right perihilar nodular opacity of the right upper lobe. Follow-up imaging after treatment course recommended to document resolution. 3. Mild mediastinal and hilar adenopathy, likely reactive. The above report was generated using voice recognition software. It may contain grammatical, syntax or spelling errors. Electronically signed by: David Feliz M.D. 05/16/2019 2:39 PM Outpatient follow-up with Pulmonary Medicine. (4) Diabetes mellitus type 2, uncontrolled: DM type 2. Hgb A1C was 11.9 last year at time of diagnosis. Last Hgb A1C in clinic was 9.4. Semaglutide added to metformin. Hgb A1C now 9.0. Elevated blood sugars due to acute illness and steroids. Semaglutide and metformin held. Received Lantus / NovoLog per protocol. FBS day of discharge 230. Resume usual regimen, including NovoLog sliding scale coverage as needed. (5) Smoking: Importance of smoking cessation discussed. Further discussion with PCP or Pulmonary Medicine advised. (6) DVT prophylaxis: SQ heparin. Ambulate. (7) Discharge planning issues: Anticipated discharge to home. Family Medicine follow-up with Dr. Metzger. 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 Take prednisone 40 mg daily for 5 days for wheezing. Continue inhalers as before. Use NovoLog sliding scale as necessary to better control your blood sugars while you are taking prednisone. SUMMARY OF TEST RESULTS: CT scan of chest showed probable pneumonia. There were some spots that might be from infection, but should be followed. CT scan of abdomen did not show any problems. Sputum culture grew a fungus called Aspergillus. We don't know whether or not the Aspergillus is making you sick. Tests related to Aspergillus infections are pending and will be discussed with you when you see Pulmonary Medicine. PENDING TEST RESULTS: Aspergillus tests. RECOMMENDATIONS FOR FOLLOW-UP: As directed by Pulmonary Medicine. OTHER INSTRUCTIONS: Please do not smoke. Please discuss quitting with Dr. Metzger or Pulmonary Medicine Team. Please do not vape. There have been a lot of problems related to vaping. Seek medical attention if you have: * temperature above 101 * chest pain or trouble breathing * abdominal pain, nausea, vomiting * diarrhea, dark stools or bloody stools * any unanswered questions or concerns Call [phone] if symptoms are severe. Please take good care of yourself. Call if you have any questions or problems. You can reach a [facility] hospitalist on duty at [facility] 24 hours a day by calling [phone]. My cell # is [phone]. Pending Studies at Discharge: Yes (Aspergillus studies) Stand-Alone Forms: Call Back Authorization, [facility], Smoking Cessation Medications and DC Order Prescriptions: New doxycycline hyclate 100 mg capsule 100 mg PO BID 5 Days Qty: 10 RF: 0 prednisone 10 mg tablet 40 mg PO DAILY 5 Days Qty: 20 RF: 0 Continued atorvastatin [Lipitor] 20 mg Tablet 20 mg PO HS RF: 0 hydrocodone-acetaminophen [[place]] 5-325 mg Tablet 1 tab PO BID PRN (Reason: Pain) RF: 0 aspirin 81 mg Tablet,Delayed Release (Dr/Ec) 81 mg PO DAILY RF: 0 epinephrine [EpiPen] 0.3 mg/0.3 mL Auto-Injector 0.3 mg IM Q3H PRN (Reason: Anaphylaxis) RF: 0 albuterol sulfate 90 mcg/actuation Hfa Aerosol Inhaler 2 puff INHALATION Q4H PRN (Reason: Shortness Of Breath Or Wheezing) RF: 0 fluticasone propionate [Flonase Allergy Relief] 50 mcg/actuation [place],Suspension 2 spray INTRANASAL DAILY RF: 0 loratadine [Claritin] 10 mg Tablet 10 mg PO DAILY RF: 0 metformin 1,000 mg Tablet 1,000 mg PO BID RF: 0 Ozempic 0.25 mg or 0.5 mg(2 mg/1.5 mL) Pen Injector 0.25 mg SUBCUT WK RF: 0 Arnuity Ellipta 100 mcg/actuation Blister With Device 1 inh INHALATION DAILY RF: 0 Novolog PenFill U-100 Insulin 100 unit/mL Cartridge 1 sliding scale dose SUBCUT USEASDIRECTD Qty: 15 RF: 0 Discharge Orders: Discharge Order (Routine); Ordered 05/19/19 Ordered By: Gustabo Rodriguez Admission Data Admit Date/Time: 05/16/19 18:16 Attending Provider: Gustabo Rodriguez Admit Provider: Andrew Campbell Primary Care Provider: Joe Metzger Other Providers: Andrew Campbell ; Leslie Pruett Other Interventions: Discharge Summary Assessment (RN) Last Done: 05/19/19 15:19 DC Date/Time DO NOT enter until pt leaves facility: 05/19/19 16:07
[2019-05-20] MEDS ORDERED: predniSONE 20 MG TAB PO SCH (09:00)
[2019-05-23 16:30] LABS: Asperg Fumig Class 0; Asperg Fumig IgE <0.10 KU/L; Aspergillus Flavus Negative (Negative); Aspergillus Niger Negative (Negative); Immunoglobulin IgE 241 KU/L (<115); Mycoplasma pneumoniae Ab, IgM 2440 U/mL (<770); Rast Aspergillus fumigatus IgG 50.5 mcg/mL (<2.0)
== END 2019-05-19 16:07 | disposition home or self-care (01) | DRG 194 ==
LOC: ED 12:11 → 3W 18:16 → SUATTDRO 18:16 → 3W 20:12